=== PATIENT | male | born 1985 | race Caucasian/White ===

== ENCOUNTER 2019-07-26 06:22 | Inpatient (IN) | payer MEDICAID ==
[~2019-07-26] VITALS: Ht 172.7 cm; Wt 68.9 kg
[2019-07-26] MEDS ORDERED: ACETAMINOPHEN 325MG TABLET PO STA (06:47)
[2019-07-26 07:28] LABS: CHLORIDE 103 mEq/L (98-107)
[2019-07-26 07:30] LABS: PROTHROMBIN TIME 11.1 sec (9.6-11.0)
[2019-07-26 07:34] LABS: CLARITY URINE CLEAR (CLEAR); COLOR URINE YELLOW (YELLOW); KETONES URINE NEGATIVE (NEGATIVE); LEUKOCYTE ESTERASE URINE NEGATIVE (NEGATIVE); NITRITE URINE NEGATIVE (NEGATIVE); OCCULT BLOOD URINE TRACE (NEGATIVE); PROTEIN URINE 1+ (NEGATIVE); SPECIFIC GRAVITY URINE 1.025 (1.005-1.030)
[2019-07-26 08:43] LABS: HEMOGLOBIN. 13.3 g/dL (14.0-18.0); MEAN PLATELET VOLUME 8.5 fl (7.4-10.4); PLATELET 338 x1000/uL (130-400); RED BLOOD CELL COUNT 4.43 mill/uL (4.7-6.1); RED CELL DISTRIBUTION WIDTH 13.6 % (11.6-14.6)
[2019-07-26] MEDS ORDERED: VANCOMYCIN 1 G PREMIX 200 ML IV ONE (09:00)
[2019-07-26] MEDS ORDERED: PIPERACILLIN/TAZ 3.375G PREMIX 50 ML IV ONE (09:00)
[2019-07-26 09:21] LABS: PLATELET ESTIMATE NORMAL
[2019-07-26 09:40] LABS: BG BASE EXCESS 0.3 mmol/L (-2.0-2.0); BG CARBOXYHEMOGLOBIN 1.4 % (0.5-1.5); BG DEOXYHEMOGLOBIN 3.4 % (0.0-5.0); BG HCO3 ACT 23.5 mmol/L (22.0-26.0); BG METHEMOGLOBIN 0.3 % (0.0-1.5); BG OXYGEN SATURATION 96.5 % (92.0-98.5); BG OXYHEMOGLOBIN 94.9 % (94.0-97.0); BG PCO2 33.7 mmHg (35.0-45.0); BG PH 7.461 (7.350-7.450); BG PO2 78.4 mmHg (75.0-100.0); BG SAMPLE SITE RIGHT RADIAL; BG TOTAL HEMOGLOBIN 14.1 g/dL (12.0-18.0); BG VENT MODE ROOM AIR
[2019-07-26 12:30] VITALS: BP 106/44
[2019-07-26] MEDS: ASCORBIC ACID 500 MG TABLET PO SCH (14:07)
[2019-07-26] MEDS: ZINC SULFATE 220 MG ( 50 ) CAPSULE PO SCH (14:08)
[2019-07-26 16:00] VITALS: BP 126/70
[2019-07-26] MEDS: HYDROXYCHLOROQUINE SULFATE 200MG TABLET PO SCH ×2 (16:02→21:00)
[2019-07-26] MEDS: ACETAMINOPHEN 325MG TABLET PO PRN (16:02)
[2019-07-26] MEDS: ENOXAPARIN 40MG/0.4ML SYR SUBCUT SCH (18:55)
[2019-07-26] MEDS: AZITHROMYCIN 500 MG TABLET PO SCH (18:56)
[2019-07-26 20:00] VITALS: BP 134/70
[2019-07-26] MEDS: CEFTRIAXONE 1 G PREMIX 50 ML IV SCH (20:18)
[2019-07-27] VITALS: BP 97/59
[2019-07-27 04:00] VITALS: BP 110/65
[2019-07-27 05:22] LABS: HEMATOCRIT. 44.1 % (42.0-52.0); HEMOGLOBIN. 14.9 g/dL (14.0-18.0); MEAN CORPUSCULAR HEMOGLOBIN 30.2 pg (28.0-32.0); MEAN CORPUSCULAR VOLUME 89.3 fL (80.0-94.0); MEAN PLATELET VOLUME 8.7 fl (7.4-10.4); PLATELET 368 x1000/uL (130-400); RED BLOOD CELL COUNT 4.94 mill/uL (4.7-6.1); RED CELL DISTRIBUTION WIDTH 13.6 % (11.6-14.6)
[2019-07-27] MEDS: ACETAMINOPHEN 325MG TABLET PO PRN ×3 (05:31→20:54)
[2019-07-27 06:49] LABS: CHLORIDE 100 mEq/L (98-107)
[2019-07-27 08:00] VITALS: BP 88/55
[2019-07-27] MEDS: AZITHROMYCIN 500 MG TABLET PO SCH (10:20)
[2019-07-27] MEDS: HYDROXYCHLOROQUINE SULFATE 200MG TABLET PO SCH ×2 (10:20→20:58)
[2019-07-27] MEDS: ASCORBIC ACID 500 MG TABLET PO SCH (10:20)
[2019-07-27] MEDS: ZINC SULFATE 220 MG ( 50 ) CAPSULE PO SCH (11:42)
[2019-07-27 12:00] VITALS: BP 102/58
[2019-07-27 13:33] LABS: BG BASE EXCESS 2.3 mmol/L (-2.0-2.0); BG CARBOXYHEMOGLOBIN 0.4 % (0.5-1.5); BG DEOXYHEMOGLOBIN 5.1 % (0.0-5.0); BG FRACTION INSPIRED OXYGEN 34; BG HCO3 ACT 26.2 mmol/L (22.0-26.0); BG METHEMOGLOBIN 0.4 % (0.0-1.5); BG OXYGEN SATURATION 94.9 % (92.0-98.5); BG OXYHEMOGLOBIN 94.1 % (94.0-97.0); BG PCO2 38.2 mmHg (35.0-45.0); BG PH 7.454 (7.350-7.450); BG PO2 73.8 mmHg (75.0-100.0); BG SAMPLE SITE RIGHT RADIAL; BG TOTAL HEMOGLOBIN 14.2 g/dL (12.0-18.0); BG VENT MODE NASAL CANNULA
[2019-07-27] MEDS: ONDANSETRON HCL 4MG/2ML INJ IV PRN ×2 (13:42→18:56)
[2019-07-27 16:00] VITALS: BP 110/63
[2019-07-27] MEDS: ENOXAPARIN 40MG/0.4ML SYR SUBCUT SCH (17:09)
[2019-07-27 17:27] LABS: PLATELET ESTIMATE NORMAL
[2019-07-27] MEDS: MORPHINE SULFATE 2 MG/ML CPJ (NOT FOR IM USE) IV PRN (18:56)
[2019-07-27 20:00] VITALS: BP 97/62
[2019-07-27] MEDS: CEFTRIAXONE 1 G PREMIX 50 ML IV SCH (20:54)
[2019-07-28] VITALS: BP 94/69
[2019-07-28] MEDS: ACETAMINOPHEN 325MG TABLET PO PRN ×3 (05:13→18:37)
[2019-07-28] MEDS: ONDANSETRON HCL 4MG/2ML INJ IV PRN (05:27)
[2019-07-28 08:00] VITALS: BP 98/66
[2019-07-28] MEDS: ASCORBIC ACID 500 MG TABLET PO SCH (08:49)
[2019-07-28] MEDS: ZINC SULFATE 220 MG ( 50 ) CAPSULE PO SCH (08:49)
[2019-07-28] MEDS: AZITHROMYCIN 500 MG TABLET PO SCH (08:50)
[2019-07-28] MEDS: HYDROXYCHLOROQUINE SULFATE 200MG TABLET PO SCH ×2 (08:50→20:51)
[2019-07-28] MEDS: KETOROLAC 30MG/ML VIAL IV PRN ×2 (11:15→18:37)
[2019-07-28 12:00] VITALS: BP 94/49
[2019-07-28] MEDS ORDERED: LACTULOSE 20G/30ML UDC PO NR (12:30)
[2019-07-28] MEDS: ENOXAPARIN 40MG/0.4ML SYR SUBCUT SCH (15:55)
[2019-07-28 16:00] VITALS: BP 118/71
[2019-07-28 20:00] VITALS: BP 108/66
[2019-07-28] MEDS: CEFTRIAXONE 1 G PREMIX 50 ML IV SCH (20:50)
[2019-07-28] MEDS: BENZONATATE 100MG CAPSULE PO PRN (20:51)
[2019-07-28 21:38] LABS: HEMATOCRIT. 43.6 % (42.0-52.0); HEMOGLOBIN. 14.7 g/dL (14.0-18.0); MEAN CORPUSCULAR HEMOGLOBIN 30.1 pg (28.0-32.0); MEAN CORPUSCULAR VOLUME 89.3 fL (80.0-94.0); MEAN PLATELET VOLUME 7.9 fl (7.4-10.4); PLATELET 369 x1000/uL (130-400); RED BLOOD CELL COUNT 4.88 mill/uL (4.7-6.1); RED CELL DISTRIBUTION WIDTH 13.5 % (11.6-14.6)
[2019-07-28 22:51] LABS: PLATELET ESTIMATE NORMAL
[2019-07-29] VITALS: BP 95/58
[2019-07-29 00:05] LABS: CHLORIDE 100 mEq/L (98-107)
[2019-07-29] MEDS: ACETAMINOPHEN 325MG TABLET PO PRN ×3 (00:32→18:23)
[2019-07-29 04:00] VITALS: BP 106/71
[2019-07-29 08:00] VITALS: BP 124/77
[2019-07-29] MEDS: AZITHROMYCIN 500 MG TABLET PO SCH (08:32)
[2019-07-29] MEDS: ZINC SULFATE 220 MG ( 50 ) CAPSULE PO SCH (08:32)
[2019-07-29] MEDS: HYDROXYCHLOROQUINE SULFATE 200MG TABLET PO SCH ×2 (08:33→20:45)
[2019-07-29] MEDS: ASCORBIC ACID 500 MG TABLET PO SCH ×5 (08:33→23:24)
[2019-07-29] MEDS: MORPHINE SULFATE 2 MG/ML CPJ (NOT FOR IM USE) IV PRN ×2 (08:34→14:09)
[2019-07-29] MEDS ORDERED: FUROSEMIDE 40MG/4ML VIAL IVP NR (10:15)
[2019-07-29 10:51] LABS: BG BASE EXCESS 1.2 mmol/L (-2.0-2.0); BG CARBOXYHEMOGLOBIN 0.3 % (0.5-1.5); BG DEOXYHEMOGLOBIN 6.1 % (0.0-5.0); BG FRACTION INSPIRED OXYGEN 100; BG HCO3 ACT 24.8 mmol/L (22.0-26.0); BG METHEMOGLOBIN 0.3 % (0.0-1.5); BG OXYGEN SATURATION 93.9 % (92.0-98.5); BG OXYHEMOGLOBIN 93.3 % (94.0-97.0); BG PCO2 35.9 mmHg (35.0-45.0); BG PH 7.457 (7.350-7.450); BG PO2 65.4 mmHg (75.0-100.0); BG SAMPLE SITE RIGHT RADIAL; BG TOTAL HEMOGLOBIN 13.6 g/dL (12.0-18.0); BG VENT MODE MASK - NRB
[2019-07-29 11:46] LABS: HEMATOCRIT. 40.8 % (42.0-52.0); HEMOGLOBIN. 13.7 g/dL (14.0-18.0); MEAN CORPUSCULAR HEMOGLOBIN 29.9 pg (28.0-32.0); MEAN CORPUSCULAR VOLUME 88.9 fL (80.0-94.0); MEAN PLATELET VOLUME 7.9 fl (7.4-10.4); PLATELET 448 x1000/uL (130-400); RED BLOOD CELL COUNT 4.59 mill/uL (4.7-6.1); RED CELL DISTRIBUTION WIDTH 13.6 % (11.6-14.6)
[2019-07-29 12:00] VITALS: BP 107/65
[2019-07-29 12:04] LABS: CHLORIDE 98 mEq/L (98-107)
[2019-07-29 12:12] LABS: CREATINE KINASE MB FRACTION < 1.0 ng/mL (0.5-3.6)
[2019-07-29 13:08] LABS: PLATELET ESTIMATE INCREASED
[2019-07-29] MEDS: ENOXAPARIN 40MG/0.4ML SYR SUBCUT SCH (14:07)
[2019-07-29] MEDS: THIAMINE HCL 200 MG in SODIUM CHLORIDE 0.9% 98 ML IV SCH ×2 (14:07→21:31)
[2019-07-29 14:57] LABS: C REACTIVE PROTEIN QUANT > 190.0 mg/L (0.0-3.0)
[2019-07-29 16:00] VITALS: BP 103/66
[2019-07-29] MEDS ORDERED: ALBUTEROL 6.7GM HFA INHALER ORI PRN (17:00)
[2019-07-29 20:00] VITALS: BP 105/68
[2019-07-29] MEDS: GUAIFENESIN 600MG ER TABLET PO SCH (20:45)
[2019-07-29] MEDS: CEFTRIAXONE 1 G PREMIX 50 ML IV SCH (20:45)
[2019-07-30] VITALS (7 sets, daily range): BP systolic 103–113; BP diastolic 63–69
[2019-07-30] MEDS: KETOROLAC 30MG/ML VIAL IV PRN (04:42)
[2019-07-30] MEDS: ASCORBIC ACID 500 MG TABLET PO SCH ×2 (05:29→13:55)
[2019-07-30] MEDS: THIAMINE HCL 200 MG in SODIUM CHLORIDE 0.9% 98 ML IV SCH (09:49)
[2019-07-30] MEDS: HYDROXYCHLOROQUINE SULFATE 200MG TABLET PO SCH ×2 (09:50→21:21)
[2019-07-30] MEDS: BENZONATATE 100MG CAPSULE PO PRN (09:50)
[2019-07-30] MEDS: ACETAMINOPHEN 325MG TABLET PO PRN (09:50)
[2019-07-30] MEDS: GUAIFENESIN 600MG ER TABLET PO SCH ×2 (09:50→21:21)
[2019-07-30] MEDS: AZITHROMYCIN 500 MG TABLET PO SCH (09:50)
[2019-07-30] MEDS: ZINC SULFATE 220 MG ( 50 ) CAPSULE PO SCH (09:50)
[2019-07-30] MEDS: MORPHINE SULFATE 2 MG/ML CPJ (NOT FOR IM USE) IV PRN ×2 (13:54→18:45)
[2019-07-30] MEDS ORDERED: THIAMINE HCL 100MG TABLET PO SCH (17:00)
[2019-07-30 17:11] LABS: BG BASE EXCESS 4.7 mmol/L (-2.0-2.0); BG CARBOXYHEMOGLOBIN 0.2 % (0.5-1.5); BG DEOXYHEMOGLOBIN 8.6 % (0.0-5.0); BG FRACTION INSPIRED OXYGEN 100; BG METHEMOGLOBIN 0.3 % (0.0-1.5); BG OXYGEN SATURATION 91.4 % (92.0-98.5); BG OXYHEMOGLOBIN 90.9 % (94.0-97.0); BG PH 7.423 (7.350-7.450); BG PO2 61.1 mmHg (75.0-100.0); BG SAMPLE SITE RIGHT RADIAL; BG TOTAL HEMOGLOBIN 13.5 g/dL (12.0-18.0); BG VENT MODE MASK - NRB
[2019-07-30] MEDS: ENOXAPARIN 40MG/0.4ML SYR SUBCUT SCH (18:24)
[2019-07-30] MEDS: THIAMINE HCL 100MG TABLET PO SCH (18:25)
[2019-07-30] MEDS: ALBUTEROL 6.7GM HFA INHALER ORI SCH (18:26)
[2019-07-30] MEDS: CEFTRIAXONE 1 G PREMIX 50 ML IV SCH (21:21)
[2019-07-30] MEDS: DOCUSATE SODIUM 250MG CAPSULE PO SCH (23:55)
[2019-07-31] VITALS: BP 115/65
[2019-07-31] MEDS: MORPHINE SULFATE 2 MG/ML CPJ (NOT FOR IM USE) IV PRN ×4 (00:01→15:53)
[2019-07-31 04:00] VITALS: BP 112/69
[2019-07-31] MEDS: ALBUTEROL 6.7GM HFA INHALER ORI SCH ×3 (06:12→18:02)
[2019-07-31] MEDS: ASCORBIC ACID 500 MG TABLET PO SCH ×4 (06:12→23:30)
[2019-07-31 08:00] VITALS: BP 108/62
[2019-07-31 08:53] LABS: BG BASE EXCESS 1.4 mmol/L (-2.0-2.0); BG CARBOXYHEMOGLOBIN 0.3 % (0.5-1.5); BG DEOXYHEMOGLOBIN 5.4 % (0.0-5.0); BG HCO3 ACT 26.1 mmol/L (22.0-26.0); BG METHEMOGLOBIN 0.2 % (0.0-1.5); BG OXYGEN SATURATION 94.6 % (92.0-98.5); BG OXYHEMOGLOBIN 94.1 % (94.0-97.0); BG PCO2 41.4 mmHg (35.0-45.0); BG PH 7.417 (7.350-7.450); BG PO2 74.9 mmHg (75.0-100.0); BG SAMPLE SITE RIGHT RADIAL; BG TOTAL HEMOGLOBIN 13.4 g/dL (12.0-18.0); BG VENT MODE MASK - NRB
[2019-07-31] MEDS: ZINC SULFATE 220 MG ( 50 ) CAPSULE PO SCH (09:09)
[2019-07-31] MEDS: DOCUSATE SODIUM 250MG CAPSULE PO SCH ×2 (09:09→18:02)
[2019-07-31] MEDS: GUAIFENESIN 600MG ER TABLET PO SCH ×2 (09:09→20:47)
[2019-07-31] MEDS: HYDROXYCHLOROQUINE SULFATE 200MG TABLET PO SCH (09:09)
[2019-07-31] MEDS: AZITHROMYCIN 500 MG TABLET PO SCH (09:09)
[2019-07-31] MEDS: ENOXAPARIN 40MG/0.4ML SYR SUBCUT SCH (10:32)
[2019-07-31] MEDS: FUROSEMIDE 40MG/4ML VIAL IVP NR ×2 (11:00→14:36)
[2019-07-31 12:00] VITALS: BP 110/66
[2019-07-31] MEDS: THIAMINE HCL 100MG TABLET PO SCH ×2 (13:52→18:02)
[2019-07-31 15:37] LABS: D-DIMER 1.06 mg/L FEU (<0.50); HEMATOCRIT. 38.7 % (42.0-52.0); HEMOGLOBIN. 13.3 g/dL (14.0-18.0); INR 1.1; MEAN CORPUSCULAR HEMOGLOBIN 30.5 pg (28.0-32.0); MEAN CORPUSCULAR VOLUME 88.7 fL (80.0-94.0); MEAN PLATELET VOLUME 7.8 fl (7.4-10.4); PLATELET 491 x1000/uL (130-400); PROTHROMBIN TIME 11.4 sec (9.6-11.0); RED BLOOD CELL COUNT 4.37 mill/uL (4.7-6.1); RED CELL DISTRIBUTION WIDTH 13.6 % (11.6-14.6)
[2019-07-31 15:39] LABS: CHLORIDE 100 mEq/L (98-107)
[2019-07-31 15:46] LABS: PHOSPHORUS 3.7 mg/dL (2.5-4.9)
[2019-07-31 15:48] LABS: CREATINE KINASE MB FRACTION < 1.0 ng/mL (0.5-3.6)
[2019-07-31 16:00] VITALS: BP 107/77
[2019-07-31 17:15] LABS: PLATELET ESTIMATE INCREASED
[2019-07-31] MEDS: ACETAMINOPHEN 325MG TABLET PO PRN (18:18)
[2019-07-31] MEDS: CEFTRIAXONE 1 G PREMIX 50 ML IV SCH (20:47)
[2019-08-01] VITALS: BP 115/76
[2019-08-01] MEDS: ALBUTEROL 6.7GM HFA INHALER ORI SCH ×5 (00:43→23:29)
[2019-08-01] MEDS: MORPHINE SULFATE 2 MG/ML CPJ (NOT FOR IM USE) IV PRN ×2 (02:25→08:30)
[2019-08-01 04:00] VITALS: BP 106/75
[2019-08-01] MEDS: ASCORBIC ACID 500 MG TABLET PO SCH ×4 (06:23→23:24)
[2019-08-01 08:00] VITALS: BP 124/76
[2019-08-01] MEDS: THIAMINE HCL 100MG TABLET PO SCH ×2 (08:29→18:55)
[2019-08-01] MEDS: GUAIFENESIN 600MG ER TABLET PO SCH ×2 (08:29→21:11)
[2019-08-01] MEDS: ZINC SULFATE 220 MG ( 50 ) CAPSULE PO SCH (08:29)
[2019-08-01] MEDS: AZITHROMYCIN 500 MG TABLET PO SCH (08:29)
[2019-08-01] MEDS: DOCUSATE SODIUM 250MG CAPSULE PO SCH ×2 (08:29→17:00)
[2019-08-01 12:00] VITALS: BP 112/76
[2019-08-01] MEDS: ENOXAPARIN 40MG/0.4ML SYR SUBCUT SCH (12:38)
[2019-08-01] MEDS ORDERED: FUROSEMIDE 40MG/4ML VIAL IVP NR (13:15)
[2019-08-01] MEDS: PIPERACILLIN/TAZOBACTAM 3.375 G in DEXT 5% WATER 100 ML IV SCH ×2 (15:13→21:11)
[2019-08-01 16:00] VITALS: BP 107/69
[2019-08-01 20:00] VITALS: BP 107/71
[2019-08-02] VITALS: BP 109/74
[2019-08-02] MEDS: ACETAMINOPHEN 325MG TABLET PO PRN (02:25)
[2019-08-02] MEDS: PIPERACILLIN/TAZOBACTAM 3.375 G in DEXT 5% WATER 100 ML IV SCH ×4 (03:14→20:40)
[2019-08-02 04:00] VITALS: BP 102/67
[2019-08-02] MEDS: ASCORBIC ACID 500 MG TABLET PO SCH ×4 (05:32→23:49)
[2019-08-02] MEDS: ALBUTEROL 6.7GM HFA INHALER ORI SCH ×4 (05:32→23:49)
[2019-08-02 08:00] VITALS: BP 118/74
[2019-08-02] MEDS: DOCUSATE SODIUM 250MG CAPSULE PO SCH ×2 (09:00→16:57)
[2019-08-02] MEDS: BENZONATATE 100MG CAPSULE PO PRN (10:32)
[2019-08-02] MEDS: AZITHROMYCIN 500 MG TABLET PO SCH (10:33)
[2019-08-02] MEDS: GUAIFENESIN 600MG ER TABLET PO SCH ×2 (10:33→20:40)
[2019-08-02] MEDS: THIAMINE HCL 100MG TABLET PO SCH ×2 (10:33→16:57)
[2019-08-02] MEDS: ENOXAPARIN 40MG/0.4ML SYR SUBCUT SCH (10:33)
[2019-08-02] MEDS: ZINC SULFATE 220 MG ( 50 ) CAPSULE PO SCH (10:33)
[2019-08-02] MEDS: ONDANSETRON HCL 4MG/2ML INJ IV PRN (12:58)
[2019-08-02] MEDS: HYDROCODONE/ACETAMINOPHEN 10/325MG TABLET PO PRN ×2 (13:01→17:01)
[2019-08-02] MEDS: METHYLPREDNISOLONE SOD SUCC 40 MG/ML VIAL IV SCH ×2 (16:57→20:40)
[2019-08-02 20:00] VITALS: BP 108/69
[2019-08-02 21:07] LABS: HEMATOCRIT. 39.8 % (42.0-52.0); HEMOGLOBIN. 13.5 g/dL (14.0-18.0); MEAN CORPUSCULAR HEMOGLOBIN 30.2 pg (28.0-32.0); MEAN CORPUSCULAR VOLUME 88.7 fL (80.0-94.0); PLATELET 535 x1000/uL (130-400); RED BLOOD CELL COUNT 4.48 mill/uL (4.7-6.1); RED CELL DISTRIBUTION WIDTH 13.4 % (11.6-14.6)
[2019-08-02 22:59] LABS: PLATELET ESTIMATE INCREASED
[2019-08-03] VITALS: BP 106/67
[2019-08-03] MEDS: PIPERACILLIN/TAZOBACTAM 3.375 G in DEXT 5% WATER 100 ML IV SCH ×4 (02:24→20:28)
[2019-08-03 04:00] VITALS: BP 103/59
[2019-08-03] MEDS: HYDROCODONE/ACETAMINOPHEN 10/325MG TABLET PO PRN ×2 (06:16→18:31)
[2019-08-03] MEDS: ASCORBIC ACID 500 MG TABLET PO SCH ×2 (06:16→12:26)
[2019-08-03] MEDS: ALBUTEROL 6.7GM HFA INHALER ORI SCH ×3 (06:17→17:18)
[2019-08-03 08:00] VITALS: BP 133/71
[2019-08-03] MEDS: DOCUSATE SODIUM 250MG CAPSULE PO SCH ×2 (09:46→16:07)
[2019-08-03] MEDS: ZINC SULFATE 220 MG ( 50 ) CAPSULE PO SCH (09:46)
[2019-08-03] MEDS: METHYLPREDNISOLONE SOD SUCC 40 MG/ML VIAL IV SCH ×2 (09:47→20:29)
[2019-08-03] MEDS: ACETAMINOPHEN 325MG TABLET PO PRN (09:47)
[2019-08-03] MEDS: GUAIFENESIN 600MG ER TABLET PO SCH ×2 (09:47→20:28)
[2019-08-03] MEDS: CALCIUM CARBONATE 500MG TABLET CHEW PO SCH ×3 (09:48→16:06)
[2019-08-03] MEDS: THIAMINE HCL 100MG TABLET PO SCH ×2 (09:48→16:07)
[2019-08-03 09:59] LABS: CHLORIDE 93 mEq/L (98-107)
[2019-08-03 10:03] LABS: HEMATOCRIT. 38.7 % (42.0-52.0); HEMOGLOBIN. 13.1 g/dL (14.0-18.0); MEAN CORPUSCULAR HEMOGLOBIN 30.1 pg (28.0-32.0); MEAN CORPUSCULAR VOLUME 88.6 fL (80.0-94.0); MEAN PLATELET VOLUME 7.8 fl (7.4-10.4); PLATELET 542 x1000/uL (130-400); RED BLOOD CELL COUNT 4.37 mill/uL (4.7-6.1); RED CELL DISTRIBUTION WIDTH 13.5 % (11.6-14.6)
[2019-08-03 10:07] LABS: PHOSPHORUS 3.1 mg/dL (2.5-4.9)
[2019-08-03 10:08] LABS: CREATINE KINASE MB FRACTION < 1.0 ng/mL (0.5-3.6)
[2019-08-03 12:00] VITALS: BP 111/75
[2019-08-03] MEDS: ENOXAPARIN 40MG/0.4ML SYR SUBCUT SCH (12:25)
[2019-08-03 12:27] LABS: PLATELET ESTIMATE INCREASED
[2019-08-03 20:00] VITALS: BP 105/63
[2019-08-03] MEDS: ENOXAPARIN 30MG/0.3ML SYR SUBCUT SCH (20:29)
[2019-08-04] VITALS (45 sets, daily range): BP systolic 58–177; BP diastolic 36–132
[2019-08-04] MEDS: ACETAMINOPHEN 325MG TABLET PO PRN (00:13)
[2019-08-04] MEDS: ALBUTEROL 6.7GM HFA INHALER ORI SCH ×4 (00:17→18:00)
[2019-08-04] MEDS: PIPERACILLIN/TAZOBACTAM 3.375 G in DEXT 5% WATER 100 ML IV SCH ×3 (02:57→21:59)
[2019-08-04] MEDS: CALCIUM CARBONATE 500MG TABLET CHEW PO SCH ×3 (06:11→17:00)
[2019-08-04] MEDS: DOCUSATE SODIUM 250MG CAPSULE PO SCH ×2 (08:33→17:00)
[2019-08-04] MEDS: ASCORBIC ACID 500 MG TABLET PO SCH ×2 (08:33→17:00)
[2019-08-04] MEDS: ENOXAPARIN 30MG/0.3ML SYR SUBCUT SCH ×2 (08:33→21:59)
[2019-08-04] MEDS: GUAIFENESIN 600MG ER TABLET PO SCH ×2 (08:33→21:00)
[2019-08-04] MEDS: ZINC SULFATE 220 MG ( 50 ) CAPSULE PO SCH (08:33)
[2019-08-04] MEDS: THIAMINE HCL 100MG TABLET PO SCH ×2 (08:33→17:00)
[2019-08-04] MEDS: METHYLPREDNISOLONE SOD SUCC 40 MG/ML VIAL IV SCH ×2 (08:34→21:59)
[2019-08-04] MEDS: HYDROCODONE/ACETAMINOPHEN 10/325MG TABLET PO PRN (09:51)
[2019-08-04 10:12] LABS: HEMATOCRIT. 38.2 % (42.0-52.0); HEMOGLOBIN. 12.9 g/dL (14.0-18.0); MEAN CORPUSCULAR HEMOGLOBIN 29.9 pg (28.0-32.0); MEAN CORPUSCULAR VOLUME 88.5 fL (80.0-94.0); MEAN PLATELET VOLUME 7.5 fl (7.4-10.4); PLATELET 573 x1000/uL (130-400); RED BLOOD CELL COUNT 4.32 mill/uL (4.7-6.1); RED CELL DISTRIBUTION WIDTH 13.4 % (11.6-14.6)
[2019-08-04 10:18] LABS: CHLORIDE 95 mEq/L (98-107)
[2019-08-04 10:25] LABS: PHOSPHORUS 3.1 mg/dL (2.5-4.9)
[2019-08-04 12:35] LABS: BG BASE EXCESS 5.8 mmol/L (-2.0-2.0); BG CARBOXYHEMOGLOBIN 0.3 % (0.5-1.5); BG DEOXYHEMOGLOBIN 9.5 % (0.0-5.0); BG HCO3 ACT 30.7 mmol/L (22.0-26.0); BG METHEMOGLOBIN 0.1 % (0.0-1.5); BG OXYGEN SATURATION 90.5 % (92.0-98.5); BG OXYHEMOGLOBIN 90.1 % (94.0-97.0); BG PCO2 45.8 mmHg (35.0-45.0); BG PH 7.444 (7.350-7.450); BG PO2 58.5 mmHg (75.0-100.0); BG SAMPLE SITE RIGHT RADIAL; BG TOTAL HEMOGLOBIN 12.9 g/dL (12.0-18.0); BG VENT MODE MASK - NRB
[2019-08-04 13:30] LABS: PLATELET ESTIMATE INCREASED
[2019-08-04] MEDS ORDERED: LORAZEPAM 2MG/ML CPJ ONE (16:06)
[2019-08-04] MEDS: PROPOFOL 10MG/ML 100ML 100 ML IV PRN ×2 (16:15→21:58)
[2019-08-04 17:11] LABS: BG BASE EXCESS 6.1 mmol/L (-2.0-2.0); BG CARBOXYHEMOGLOBIN 0.3 % (0.5-1.5); BG HCO3 ACT 32.2 mmol/L (22.0-26.0); BG METHEMOGLOBIN 0.2 % (0.0-1.5); BG OXYGEN SATURATION 85.9 % (92.0-98.5); BG OXYHEMOGLOBIN 85.5 % (94.0-97.0); BG PCO2 52.7 mmHg (35.0-45.0); BG PH 7.404 (7.350-7.450); BG PO2 53.9 mmHg (75.0-100.0); BG SAMPLE SITE RIGHT RADIAL; BG TIDAL VOLUME(mL) 450 mL; BG TOTAL HEMOGLOBIN 13.1 g/dL (12.0-18.0); BG VENT MODE VENT - A/C; BG VENT RATE 20 set
[2019-08-04] MEDS: MIDAZOLAM HCL 50 MG in DEXTROSE 5% WATER 40 ML IV PRN ×2 (17:24→20:52)
[2019-08-04] MEDS: FENTANYL CITRATE/PF 500 MCG in SODIUM CHLORIDE 0.9% 40 ML IV PRN ×2 (17:24→20:51)
[2019-08-04] MEDS ORDERED: NOREPINEPHRINE 32 MG in DEXT 5% WATER 468 ML IV PRN (22:00)
[2019-08-04] MEDS: FENTANYL CITRATE/PF 1,000 MCG in SODIUM CHLORIDE 0.9% 80 ML IV PRN (23:15)
[2019-08-05] VITALS (96 sets, daily range): BP systolic 76–160; BP diastolic 28–106
[2019-08-05] MEDS: MIDAZOLAM HCL 100 MG in DEXT 5% WATER 80 ML IV PRN ×3 (00:22→17:31)
[2019-08-05] MEDS: PROPOFOL 10MG/ML 100ML 100 ML IV PRN ×6 (01:47→22:45)
[2019-08-05] MEDS: PHENYLEPHRINE 40 MG in DEXT 5% WATER 246 ML IV PRN ×2 (02:19→09:32)
[2019-08-05] MEDS: PIPERACILLIN/TAZOBACTAM 3.375 G in DEXT 5% WATER 100 ML IV SCH ×4 (03:47→20:29)
[2019-08-05 05:36] LABS: HEMOGLOBIN. 12.4 g/dL (14.0-18.0); MEAN CORPUSCULAR VOLUME 89.3 fL (80.0-94.0); MEAN PLATELET VOLUME 7.9 fl (7.4-10.4); PLATELET 680 x1000/uL (130-400); RED BLOOD CELL COUNT 4.14 mill/uL (4.7-6.1); RED CELL DISTRIBUTION WIDTH 13.4 % (11.6-14.6)
[2019-08-05 05:51] LABS: CHLORIDE 95 mEq/L (98-107)
[2019-08-05 06:00] LABS: CREATINE KINASE MB FRACTION < 1.0 ng/mL (0.5-3.6)
[2019-08-05 08:17] LABS: BG BASE EXCESS 6.1 mmol/L (-2.0-2.0); BG CARBOXYHEMOGLOBIN 0.3 % (0.5-1.5); BG DEOXYHEMOGLOBIN 11.9 % (0.0-5.0); BG FRACTION INSPIRED OXYGEN 100; BG HCO3 ACT 32.5 mmol/L (22.0-26.0); BG METHEMOGLOBIN 0.2 % (0.0-1.5); BG OXYHEMOGLOBIN 87.6 % (94.0-97.0); BG PCO2 54.7 mmHg (35.0-45.0); BG PH 7.392 (7.350-7.450); BG PO2 58.4 mmHg (75.0-100.0); BG SAMPLE SITE RIGHT RADIAL; BG TIDAL VOLUME(mL) 450 mL; BG VENT MODE VENT - A/C; BG VENT RATE 20 set
[2019-08-05] MEDS: DOCUSATE SODIUM 250MG CAPSULE PO SCH ×2 (09:29→17:29)
[2019-08-05] MEDS: METHYLPREDNISOLONE SOD SUCC 40 MG/ML VIAL IV SCH ×2 (09:29→20:29)
[2019-08-05] MEDS: ENOXAPARIN 30MG/0.3ML SYR SUBCUT SCH ×2 (09:29→20:30)
[2019-08-05] MEDS: ZINC SULFATE 220 MG ( 50 ) CAPSULE PO SCH (09:29)
[2019-08-05] MEDS: ASCORBIC ACID 500 MG TABLET PO SCH ×2 (09:29→17:28)
[2019-08-05] MEDS: CALCIUM CARBONATE 500MG TABLET CHEW PO SCH ×3 (09:30→17:28)
[2019-08-05] MEDS: FENTANYL CITRATE/PF 1,000 MCG in SODIUM CHLORIDE 0.9% 80 ML IV PRN ×2 (09:30→17:30)
[2019-08-05 09:42] LABS: PLATELET ESTIMATE INCREASED
[2019-08-05] MEDS: THIAMINE HCL 100MG TABLET PO SCH ×2 (10:39→17:28)
[2019-08-05] MEDS: FUROSEMIDE 40MG/4ML VIAL IVP SCH (18:19)
[2019-08-06] VITALS (95 sets, daily range): BP systolic 86–116; BP diastolic 52–75
[2019-08-06] MEDS: PIPERACILLIN/TAZOBACTAM 3.375 G in DEXT 5% WATER 100 ML IV SCH ×4 (02:17→20:16)
[2019-08-06] MEDS: PROPOFOL 10MG/ML 100ML 100 ML IV PRN ×6 (03:07→22:22)
[2019-08-06 04:52] LABS: HEMATOCRIT. 36.1 % (42.0-52.0); HEMOGLOBIN. 12.1 g/dL (14.0-18.0); MEAN CORPUSCULAR HEMOGLOBIN 29.8 pg (28.0-32.0); MEAN CORPUSCULAR VOLUME 89.1 fL (80.0-94.0); MEAN PLATELET VOLUME 7.8 fl (7.4-10.4); PLATELET 603 x1000/uL (130-400); RED BLOOD CELL COUNT 4.06 mill/uL (4.7-6.1); RED CELL DISTRIBUTION WIDTH 13.4 % (11.6-14.6)
[2019-08-06 05:28] LABS: CHLORIDE 93 mEq/L (98-107)
[2019-08-06 05:36] LABS: PHOSPHORUS 4.2 mg/dL (2.5-4.9)
[2019-08-06] MEDS: FENTANYL CITRATE/PF 1,000 MCG in SODIUM CHLORIDE 0.9% 80 ML IV PRN ×2 (05:52→18:30)
[2019-08-06] MEDS: MIDAZOLAM HCL 100 MG in DEXT 5% WATER 80 ML IV PRN ×2 (05:53→18:30)
[2019-08-06] MEDS: CALCIUM CARBONATE 500MG TABLET CHEW PO SCH ×3 (07:00→16:17)
[2019-08-06 07:56] LABS: BG BASE EXCESS 9.8 mmol/L (-2.0-2.0); BG CARBOXYHEMOGLOBIN 0.3 % (0.5-1.5); BG DEOXYHEMOGLOBIN 11.1 % (0.0-5.0); BG HCO3 ACT 37.2 mmol/L (22.0-26.0); BG METHEMOGLOBIN 0.2 % (0.0-1.5); BG OXYGEN SATURATION 88.8 % (92.0-98.5); BG OXYHEMOGLOBIN 88.4 % (94.0-97.0); BG PCO2 64.1 mmHg (35.0-45.0); BG PH 7.382 (7.350-7.450); BG PO2 60.1 mmHg (75.0-100.0); BG SAMPLE SITE RIGHT RADIAL; BG TIDAL VOLUME(mL) 400 mL; BG TOTAL HEMOGLOBIN 13.1 g/dL (12.0-18.0); BG VENT MODE VENT - A/C; BG VENT RATE 18 set
[2019-08-06] MEDS: PANTOPRAZOLE SODIUM 40 MG/VIAL IV SCH (08:43)
[2019-08-06] MEDS: METHYLPREDNISOLONE SOD SUCC 40 MG/ML VIAL IV SCH ×2 (08:43→20:15)
[2019-08-06] MEDS: FUROSEMIDE 40MG/4ML VIAL IVP SCH (08:43)
[2019-08-06] MEDS: ZINC SULFATE 220 MG ( 50 ) CAPSULE PO SCH (08:44)
[2019-08-06] MEDS: ASCORBIC ACID 500 MG TABLET PO SCH ×2 (08:47→16:17)
[2019-08-06] MEDS: ENOXAPARIN 30MG/0.3ML SYR SUBCUT SCH ×2 (08:48→20:15)
[2019-08-06] MEDS: THIAMINE HCL 100MG TABLET PO SCH ×2 (08:51→16:17)
[2019-08-06] MEDS ORDERED: DILTIAZEM HCL 5MG/ML 5ML VIAL IV NR (10:15)
[2019-08-06 13:06] LABS: PLATELET ESTIMATE INCREASED
[2019-08-06] MEDS: DOCUSATE SODIUM SUGAR FREE 100MG/10ML UDC NG SCH (16:17)
[2019-08-07] VITALS (96 sets, daily range): BP systolic 83–150; BP diastolic 46–91
[2019-08-07] MEDS: PROPOFOL 10MG/ML 100ML 100 ML IV PRN ×6 (01:49→21:03)
[2019-08-07] MEDS: PHENYLEPHRINE 40 MG in DEXT 5% WATER 246 ML IV PRN (02:18)
[2019-08-07] MEDS: MIDAZOLAM HCL 100 MG in DEXT 5% WATER 80 ML IV PRN ×2 (04:53→16:50)
[2019-08-07] MEDS: FENTANYL CITRATE/PF 1,000 MCG in SODIUM CHLORIDE 0.9% 80 ML IV PRN ×3 (04:53→23:35)
[2019-08-07 05:26] LABS: HEMATOCRIT. 33.5 % (42.0-52.0); HEMOGLOBIN. 11.5 g/dL (14.0-18.0); MEAN CORPUSCULAR VOLUME 89.9 fL (80.0-94.0); MEAN PLATELET VOLUME 8.5 fl (7.4-10.4); PLATELET 597 x1000/uL (130-400); RED BLOOD CELL COUNT 3.73 mill/uL (4.7-6.1); RED CELL DISTRIBUTION WIDTH 13.1 % (11.6-14.6)
[2019-08-07] MEDS: CALCIUM CARBONATE 500MG TABLET CHEW PO SCH ×3 (06:18→17:19)
[2019-08-07] MEDS: METHYLPREDNISOLONE SOD SUCC 40 MG/ML VIAL IV SCH ×2 (08:22→20:06)
[2019-08-07] MEDS: PANTOPRAZOLE SODIUM 40 MG/VIAL IV SCH (08:22)
[2019-08-07] MEDS: ASCORBIC ACID 500 MG TABLET PO SCH ×2 (08:23→17:19)
[2019-08-07] MEDS: DOCUSATE SODIUM SUGAR FREE 100MG/10ML UDC NG SCH ×2 (08:23→17:19)
[2019-08-07] MEDS: ENOXAPARIN 40MG/0.4ML SYR SUBCUT SCH (08:23)
[2019-08-07] MEDS: THIAMINE HCL 100MG TABLET PO SCH ×2 (08:23→17:19)
[2019-08-07] MEDS: ZINC SULFATE 220 MG ( 50 ) CAPSULE PO SCH (08:23)
[2019-08-07] MEDS: FUROSEMIDE 40MG/4ML VIAL IVP SCH (08:23)
[2019-08-07 08:26] LABS: BG BASE EXCESS 11.4 mmol/L (-2.0-2.0); BG CARBOXYHEMOGLOBIN 0.2 % (0.5-1.5); BG FRACTION INSPIRED OXYGEN 100; BG HCO3 ACT 39.8 mmol/L (22.0-26.0); BG METHEMOGLOBIN 0.1 % (0.0-1.5); BG OXYHEMOGLOBIN 95.7 % (94.0-97.0); BG PCO2 73.1 mmHg (35.0-45.0); BG PH 7.354 (7.350-7.450); BG PO2 88.8 mmHg (75.0-100.0); BG SAMPLE SITE RIGHT RADIAL; BG TIDAL VOLUME(mL) 400 mL; BG TOTAL HEMOGLOBIN 12.6 g/dL (12.0-18.0); BG VENT MODE VENT - A/C; BG VENT RATE 24 set
[2019-08-07 10:35] LABS: CHLORIDE 94 mEq/L (98-107)
[2019-08-07 10:43] LABS: PHOSPHORUS 4.5 mg/dL (2.5-4.9)
[2019-08-07] MEDS ORDERED: VASOPRESSIN 10 UNIT in SODIUM CHLORIDE 0.9% 99.5 ML IV PRN (12:00)
[2019-08-07 13:05] LABS: PLATELET ESTIMATE INCREASED
[2019-08-07 18:24] LABS: INR 1.1; PARTIAL THROMBOPLASTIN TIME 24.3 sec (23.4-31.0); PROTHROMBIN TIME 11.4 sec (9.6-11.0)
[2019-08-08] VITALS (66 sets, daily range): BP systolic 86–134; BP diastolic 45–93
[2019-08-08] MEDS: MIDAZOLAM HCL 100 MG in DEXT 5% WATER 80 ML IV PRN ×3 (00:34→23:52)
[2019-08-08] MEDS: PROPOFOL 10MG/ML 100ML 100 ML IV PRN ×6 (00:44→23:00)
[2019-08-08 05:48] LABS: CHLORIDE 93 mEq/L (98-107)
[2019-08-08 05:57] LABS: PHOSPHORUS 4.8 mg/dL (2.5-4.9)
[2019-08-08] MEDS: CALCIUM CARBONATE 500MG TABLET CHEW PO SCH ×3 (06:41→16:03)
[2019-08-08] MEDS: FENTANYL CITRATE/PF 1,000 MCG in SODIUM CHLORIDE 0.9% 80 ML IV PRN ×3 (07:34→21:48)
[2019-08-08 08:45] LABS: BG BASE EXCESS 10.6 mmol/L (-2.0-2.0); BG CARBOXYHEMOGLOBIN 0.3 % (0.5-1.5); BG DEOXYHEMOGLOBIN 6.5 % (0.0-5.0); BG FRACTION INSPIRED OXYGEN 100; BG HCO3 ACT 37.8 mmol/L (22.0-26.0); BG OXYGEN SATURATION 93.5 % (92.0-98.5); BG OXYHEMOGLOBIN 93.2 % (94.0-97.0); BG PCO2 64.3 mmHg (35.0-45.0); BG PH 7.387 (7.350-7.450); BG PO2 74.9 mmHg (75.0-100.0); BG SAMPLE SITE RIGHT RADIAL; BG TIDAL VOLUME(mL) 350 mL; BG TOTAL HEMOGLOBIN 11.7 g/dL (12.0-18.0); BG VENT MODE VENT - A/C; BG VENT RATE 30 set
[2019-08-08] MEDS: PANTOPRAZOLE SODIUM 40 MG/VIAL IV SCH (09:25)
[2019-08-08] MEDS: ENOXAPARIN 40MG/0.4ML SYR SUBCUT SCH (09:25)
[2019-08-08] MEDS: ASCORBIC ACID 500 MG TABLET PO SCH ×2 (09:25→16:04)
[2019-08-08] MEDS: ZINC SULFATE 220 MG ( 50 ) CAPSULE PO SCH (09:25)
[2019-08-08] MEDS: THIAMINE HCL 100MG TABLET PO SCH ×2 (09:25→16:04)
[2019-08-08] MEDS: METHYLPREDNISOLONE SOD SUCC 40 MG/ML VIAL IV SCH ×2 (09:25→20:00)
[2019-08-08] MEDS: PHENYLEPHRINE 40 MG in DEXT 5% WATER 246 ML IV PRN ×2 (09:26→23:00)
[2019-08-08] MEDS: DOCUSATE SODIUM SUGAR FREE 100MG/10ML UDC NG SCH ×2 (09:26→16:04)
[2019-08-08] MEDS: ACETAMINOPHEN 325MG TABLET PO PRN (16:04)
[2019-08-09] VITALS (99 sets, daily range): BP systolic 81–150; BP diastolic 45–82
[2019-08-09] MEDS: PROPOFOL 10MG/ML 100ML 100 ML IV PRN ×6 (02:35→20:54)
[2019-08-09] MEDS: FENTANYL CITRATE/PF 1,000 MCG in SODIUM CHLORIDE 0.9% 80 ML IV PRN ×5 (05:22→20:52)
[2019-08-09] MEDS: CALCIUM CARBONATE 500MG TABLET CHEW PO SCH ×3 (06:03→16:45)
[2019-08-09 08:01] LABS: BG CARBOXYHEMOGLOBIN 0.3 % (0.5-1.5); BG DEOXYHEMOGLOBIN 12.7 % (0.0-5.0); BG HCO3 ACT 37.4 mmol/L (22.0-26.0); BG METHEMOGLOBIN 0.3 % (0.0-1.5); BG OXYGEN SATURATION 87.2 % (92.0-98.5); BG OXYHEMOGLOBIN 86.7 % (94.0-97.0); BG PCO2 74.3 mmHg (35.0-45.0); BG PO2 57.4 mmHg (75.0-100.0); BG SAMPLE SITE RIGHT RADIAL; BG TIDAL VOLUME(mL) 350 mL; BG TOTAL HEMOGLOBIN 11.5 g/dL (12.0-18.0); BG VENT MODE VENT - A/C; BG VENT RATE 30 set
[2019-08-09] MEDS: METHYLPREDNISOLONE SOD SUCC 40 MG/ML VIAL IV SCH ×2 (08:24→20:13)
[2019-08-09] MEDS: ASCORBIC ACID 500 MG TABLET PO SCH ×2 (08:24→16:45)
[2019-08-09] MEDS: PANTOPRAZOLE SODIUM 40 MG/VIAL IV SCH (08:24)
[2019-08-09] MEDS: ZINC SULFATE 220 MG ( 50 ) CAPSULE PO SCH (08:24)
[2019-08-09] MEDS: THIAMINE HCL 100MG TABLET PO SCH ×2 (08:24→16:45)
[2019-08-09] MEDS: ENOXAPARIN 40MG/0.4ML SYR SUBCUT SCH (08:25)
[2019-08-09] MEDS: DOCUSATE SODIUM SUGAR FREE 100MG/10ML UDC NG SCH ×2 (08:25→16:45)
[2019-08-09] MEDS: ACETAMINOPHEN 325MG TABLET PO PRN ×2 (08:25→14:05)
[2019-08-09] MEDS: MIDAZOLAM HCL 100 MG in DEXT 5% WATER 80 ML IV PRN (10:22)
[2019-08-09 11:33] LABS: HEMATOCRIT. 30.9 % (42.0-52.0); HEMOGLOBIN. 10.5 g/dL (14.0-18.0); MEAN CORPUSCULAR HEMOGLOBIN 30.4 pg (28.0-32.0); MEAN CORPUSCULAR VOLUME 89.8 fL (80.0-94.0); MEAN PLATELET VOLUME 7.9 fl (7.4-10.4); PLATELET 499 x1000/uL (130-400); RED BLOOD CELL COUNT 3.44 mill/uL (4.7-6.1); RED CELL DISTRIBUTION WIDTH 13.1 % (11.6-14.6)
[2019-08-09 11:44] LABS: CHLORIDE 96 mEq/L (98-107)
[2019-08-09 12:36] LABS: PLATELET ESTIMATE SLIGHTLY INCREASED
[2019-08-09] MEDS ORDERED: FUROSEMIDE 40MG/4ML VIAL IVP SCH (14:15)
[2019-08-09 22:30] LABS: BG BASE EXCESS 14.5 mmol/L (-2.0-2.0); BG CARBOXYHEMOGLOBIN 0.3 % (0.5-1.5); BG FRACTION INSPIRED OXYGEN 100; BG HCO3 ACT 43.8 mmol/L (22.0-26.0); BG METHEMOGLOBIN 0.3 % (0.0-1.5); BG OXYGEN SATURATION 66.8 % (92.0-98.5); BG OXYHEMOGLOBIN 66.4 % (94.0-97.0); BG PCO2 83.4 mmHg (35.0-45.0); BG PH 7.338 (7.350-7.450); BG PO2 38.6 mmHg (75.0-100.0); BG SAMPLE SITE LEFT RADIAL; BG TIDAL VOLUME(mL) 400 mL; BG VENT MODE VENT - A/C; BG VENT RATE 30 set
[2019-08-09 23:58] LABS: BG BASE EXCESS 15.4 mmol/L (-2.0-2.0); BG FRACTION INSPIRED OXYGEN 100; BG HCO3 ACT 44.2 mmol/L (22.0-26.0); BG METHEMOGLOBIN 0.3 % (0.0-1.5); BG OXYGEN SATURATION 68.9 % (92.0-98.5); BG OXYHEMOGLOBIN 68.7 % (94.0-97.0); BG PCO2 80.2 mmHg (35.0-45.0); BG PH 7.359 (7.350-7.450); BG PO2 39.1 mmHg (75.0-100.0); BG SAMPLE SITE RIGHT RADIAL; BG TIDAL VOLUME(mL) 400 mL; BG TOTAL HEMOGLOBIN 11.5 g/dL (12.0-18.0); BG VENT MODE VENT - A/C; BG VENT RATE 34 set
[2019-08-10] VITALS (99 sets, daily range): BP systolic 87–140; BP diastolic 41–85
[2019-08-10] MEDS: PHENYLEPHRINE 40 MG in DEXT 5% WATER 246 ML IV PRN (00:25)
[2019-08-10] MEDS: PROPOFOL 10MG/ML 100ML 100 ML IV PRN ×5 (02:17→20:38)
[2019-08-10] MEDS: FENTANYL CITRATE/PF 1,000 MCG in SODIUM CHLORIDE 0.9% 80 ML IV PRN ×7 (03:16→23:35)
[2019-08-10] MEDS: PHENYLEPHRINE 80 MG in DEXT 5% WATER 492 ML IV PRN ×3 (04:27→20:00)
[2019-08-10 05:40] LABS: HEMATOCRIT. 30.8 % (42.0-52.0); HEMOGLOBIN. 10.4 g/dL (14.0-18.0); MEAN CORPUSCULAR HEMOGLOBIN 30.3 pg (28.0-32.0); MEAN CORPUSCULAR VOLUME 90.1 fL (80.0-94.0); PLATELET 524 x1000/uL (130-400); RED BLOOD CELL COUNT 3.42 mill/uL (4.7-6.1); RED CELL DISTRIBUTION WIDTH 13.5 % (11.6-14.6)
[2019-08-10] MEDS: CALCIUM CARBONATE 500MG TABLET CHEW PO SCH ×3 (07:00→16:01)
[2019-08-10] MEDS: MIDAZOLAM HCL 100 MG in DEXT 5% WATER 80 ML IV PRN ×2 (07:50→18:11)
[2019-08-10] MEDS: ASCORBIC ACID 500 MG TABLET PO SCH ×2 (08:02→16:01)
[2019-08-10] MEDS: PANTOPRAZOLE SODIUM 40 MG/VIAL IV SCH (08:02)
[2019-08-10] MEDS: DOCUSATE SODIUM SUGAR FREE 100MG/10ML UDC NG SCH ×2 (08:02→16:01)
[2019-08-10] MEDS: THIAMINE HCL 100MG TABLET PO SCH ×2 (08:02→16:01)
[2019-08-10] MEDS: ZINC SULFATE 220 MG ( 50 ) CAPSULE PO SCH (08:02)
[2019-08-10] MEDS: METHYLPREDNISOLONE SOD SUCC 40 MG/ML VIAL IV SCH ×2 (08:02→20:48)
[2019-08-10 08:03] LABS: CHLORIDE 95 mEq/L (98-107)
[2019-08-10] MEDS: ENOXAPARIN 40MG/0.4ML SYR SUBCUT SCH (08:03)
[2019-08-10 08:22] LABS: PHOSPHORUS 3.6 mg/dL (2.5-4.9)
[2019-08-10 10:07] LABS: NUCLEATED RED BLOOD CELLS 1 /100 WBC; PLATELET ESTIMATE INCREASED
[2019-08-10 10:09] LABS: BG BASE EXCESS 11.9 mmol/L (-2.0-2.0); BG CARBOXYHEMOGLOBIN 0.1 % (0.5-1.5); BG DEOXYHEMOGLOBIN 15.4 % (0.0-5.0); BG FRACTION INSPIRED OXYGEN 100; BG HCO3 ACT 41.3 mmol/L (22.0-26.0); BG METHEMOGLOBIN 0.4 % (0.0-1.5); BG OXYGEN SATURATION 84.5 % (92.0-98.5); BG OXYHEMOGLOBIN 84.1 % (94.0-97.0); BG PCO2 86.3 mmHg (35.0-45.0); BG PH 7.298 (7.350-7.450); BG PO2 55.9 mmHg (75.0-100.0); BG SAMPLE SITE RIGHT RADIAL; BG TIDAL VOLUME(mL) 400 mL; BG TOTAL HEMOGLOBIN 11.2 g/dL (12.0-18.0); BG VENT MODE VENT - A/C; BG VENT RATE 34 set
[2019-08-10] MEDS: MIDODRINE HCL 5MG TABLET PO SCH ×2 (15:34→17:26)
[2019-08-10] MEDS: PIPERACILLIN/TAZOBACTAM 3.375 G in DEXT 5% WATER 100 ML IV SCH ×2 (16:36→20:51)
[2019-08-11] VITALS (94 sets, daily range): BP systolic 94–137; BP diastolic 43–84
[2019-08-11] MEDS: PROPOFOL 10MG/ML 100ML 100 ML IV PRN ×7 (00:09→23:21)
[2019-08-11] MEDS: FENTANYL CITRATE/PF 1,000 MCG in SODIUM CHLORIDE 0.9% 80 ML IV PRN ×7 (02:32→21:05)
[2019-08-11] MEDS: PIPERACILLIN/TAZOBACTAM 3.375 G in DEXT 5% WATER 100 ML IV SCH ×5 (03:45→20:31)
[2019-08-11 04:06] LABS: HIV SCREEN 4G Non Reactive (Non Reactive)
[2019-08-11] MEDS: CALCIUM CARBONATE 500MG TABLET CHEW PO SCH ×3 (05:53→16:00)
[2019-08-11] MEDS: MIDAZOLAM HCL 100 MG in DEXT 5% WATER 80 ML IV PRN ×2 (06:49→16:51)
[2019-08-11 07:24] LABS: HEMATOCRIT. 26.7 % (42.0-52.0); HEMOGLOBIN. 8.9 g/dL (14.0-18.0); MEAN CORPUSCULAR VOLUME 90.7 fL (80.0-94.0); MEAN PLATELET VOLUME 8.1 fl (7.4-10.4); PLATELET 489 x1000/uL (130-400); RED BLOOD CELL COUNT 2.95 mill/uL (4.7-6.1); RED CELL DISTRIBUTION WIDTH 13.7 % (11.6-14.6)
[2019-08-11 07:57] LABS: CHLORIDE 97 mEq/L (98-107)
[2019-08-11 08:03] LABS: BG BASE EXCESS 16.9 mmol/L (-2.0-2.0); BG CARBOXYHEMOGLOBIN 0.3 % (0.5-1.5); BG DEOXYHEMOGLOBIN 14.6 % (0.0-5.0); BG HCO3 ACT 42.9 mmol/L (22.0-26.0); BG OXYGEN SATURATION 85.4 % (92.0-98.5); BG OXYHEMOGLOBIN 85.1 % (94.0-97.0); BG PCO2 60.7 mmHg (35.0-45.0); BG PH 7.467 (7.350-7.450); BG PO2 47.9 mmHg (75.0-100.0); BG SAMPLE SITE RIGHT RADIAL; BG TIDAL VOLUME(mL) 400 mL; BG TOTAL HEMOGLOBIN 9.5 g/dL (12.0-18.0); BG VENT MODE VENT - A/C
[2019-08-11] MEDS: ASCORBIC ACID 500 MG TABLET PO SCH ×2 (08:57→16:00)
[2019-08-11] MEDS: ZINC SULFATE 220 MG ( 50 ) CAPSULE PO SCH (08:57)
[2019-08-11] MEDS: THIAMINE HCL 100MG TABLET PO SCH ×2 (08:57→16:00)
[2019-08-11] MEDS: METHYLPREDNISOLONE SOD SUCC 40 MG/ML VIAL IV SCH ×2 (08:57→20:31)
[2019-08-11] MEDS: PANTOPRAZOLE SODIUM 40 MG/VIAL IV SCH (08:57)
[2019-08-11] MEDS: ENOXAPARIN 40MG/0.4ML SYR SUBCUT SCH (08:58)
[2019-08-11] MEDS: DOCUSATE SODIUM SUGAR FREE 100MG/10ML UDC NG SCH ×2 (08:58→16:00)
[2019-08-11] MEDS: MIDODRINE HCL 5MG TABLET PO SCH ×3 (09:02→16:00)
[2019-08-11 10:12] LABS: BG VENT RATE 34 set
[2019-08-11] MEDS ORDERED: LACTULOSE 20G/30ML UDC PO NR (10:15)
[2019-08-11 10:51] LABS: PLATELET ESTIMATE INCREASED
[2019-08-11 14:28] LABS: BG BASE EXCESS 13.6 mmol/L (-2.0-2.0); BG CARBOXYHEMOGLOBIN 0.3 % (0.5-1.5); BG DEOXYHEMOGLOBIN 14.6 % (0.0-5.0); BG HCO3 ACT 40.4 mmol/L (22.0-26.0); BG METHEMOGLOBIN 0.2 % (0.0-1.5); BG OXYGEN SATURATION 85.3 % (92.0-98.5); BG OXYHEMOGLOBIN 84.9 % (94.0-97.0); BG PCO2 65.4 mmHg (35.0-45.0); BG PH 7.409 (7.350-7.450); BG PIP 26 cmH2O; BG PO2 53.6 mmHg (75.0-100.0); BG SAMPLE SITE RIGHT RADIAL; BG TIDAL VOLUME(mL) 430 mL; BG TOTAL HEMOGLOBIN 10.1 g/dL (12.0-18.0); BG VENT MODE VENT - PCV; BG VENT RATE 30 set
[2019-08-11] MEDS: PHENYLEPHRINE 80 MG in DEXT 5% WATER 492 ML IV PRN (21:02)
[2019-08-11] MEDS: ACETAMINOPHEN 650MG/20.3ML UDC NG PRN (22:11)
[2019-08-12] VITALS (97 sets, daily range): BP systolic 88–140; BP diastolic 40–90
[2019-08-12] MEDS: FENTANYL CITRATE/PF 1,000 MCG in SODIUM CHLORIDE 0.9% 80 ML IV PRN ×5 (00:15→13:50)
[2019-08-12] MEDS: PIPERACILLIN/TAZOBACTAM 3.375 G in DEXT 5% WATER 100 ML IV SCH ×4 (02:16→20:30)
[2019-08-12] MEDS: MIDAZOLAM HCL 100 MG in DEXT 5% WATER 80 ML IV PRN ×2 (02:17→15:16)
[2019-08-12] MEDS: PROPOFOL 10MG/ML 100ML 100 ML IV PRN ×6 (03:08→23:48)
[2019-08-12 06:20] LABS: HEMATOCRIT. 28.9 % (42.0-52.0); HEMOGLOBIN. 9.5 g/dL (14.0-18.0); MEAN CORPUSCULAR HEMOGLOBIN 29.9 pg (28.0-32.0); MEAN CORPUSCULAR VOLUME 91.4 fL (80.0-94.0); MEAN PLATELET VOLUME 8.2 fl (7.4-10.4); PLATELET 462 x1000/uL (130-400); RED BLOOD CELL COUNT 3.17 mill/uL (4.7-6.1); RED CELL DISTRIBUTION WIDTH 13.9 % (11.6-14.6)
[2019-08-12 06:29] LABS: CHLORIDE 95 mEq/L (98-107)
[2019-08-12 08:47] LABS: BG BASE EXCESS 12.8 mmol/L (-2.0-2.0); BG CARBOXYHEMOGLOBIN 0.3 % (0.5-1.5); BG DEOXYHEMOGLOBIN 12.3 % (0.0-5.0); BG FRACTION INSPIRED OXYGEN 100; BG HCO3 ACT 39.1 mmol/L (22.0-26.0); BG METHEMOGLOBIN 0.3 % (0.0-1.5); BG OXYGEN SATURATION 87.6 % (92.0-98.5); BG OXYHEMOGLOBIN 87.1 % (94.0-97.0); BG PCO2 61.5 mmHg (35.0-45.0); BG PH 7.421 (7.350-7.450); BG PO2 56.6 mmHg (75.0-100.0); BG SAMPLE SITE RIGHT RADIAL; BG TOTAL HEMOGLOBIN 9.6 g/dL (12.0-18.0); BG VENT MODE VENT - PCV; BG VENT RATE 30 set
[2019-08-12] MEDS: THIAMINE HCL 100MG TABLET PO SCH ×2 (08:48→17:41)
[2019-08-12] MEDS: METHYLPREDNISOLONE SOD SUCC 40 MG/ML VIAL IV SCH ×2 (08:48→20:30)
[2019-08-12] MEDS: PANTOPRAZOLE SODIUM 40 MG/VIAL IV SCH (08:48)
[2019-08-12] MEDS: ZINC SULFATE 220 MG ( 50 ) CAPSULE PO SCH (08:48)
[2019-08-12] MEDS: CALCIUM CARBONATE 500MG TABLET CHEW PO SCH ×3 (08:48→17:41)
[2019-08-12] MEDS: MIDODRINE HCL 5MG TABLET PO SCH ×3 (08:49→17:41)
[2019-08-12] MEDS: ASCORBIC ACID 500 MG TABLET PO SCH ×2 (09:00→17:41)
[2019-08-12] MEDS: ENOXAPARIN 40MG/0.4ML SYR SUBCUT SCH (09:03)
[2019-08-12] MEDS: DOCUSATE SODIUM SUGAR FREE 100MG/10ML UDC NG SCH ×2 (09:03→17:40)
[2019-08-12] MEDS ORDERED: SORBITOL 70% SOLN 30ML PO NR (11:05)
[2019-08-12 11:38] LABS: PLATELET ESTIMATE INCREASED
[2019-08-12] MEDS ORDERED: PROPOFOL 10MG/ML 100ML 100 ML IV PRN (16:00)
[2019-08-12] MEDS: FENTANYL CITRATE/PF 2,500 MCG in SODIUM CHLORIDE 0.9% 200 ML IV PRN (16:36)
[2019-08-13] VITALS (73 sets, daily range): BP systolic 88–160; BP diastolic 42–88
[2019-08-13] MEDS: FENTANYL CITRATE/PF 2,500 MCG in SODIUM CHLORIDE 0.9% 200 ML IV PRN ×4 (00:02→23:37)
[2019-08-13] MEDS: ACETAMINOPHEN 650MG/20.3ML UDC NG PRN ×3 (00:13→23:00)
[2019-08-13] MEDS: MIDAZOLAM HCL 100 MG in DEXT 5% WATER 80 ML IV PRN ×3 (01:59→23:34)
[2019-08-13] MEDS: PIPERACILLIN/TAZOBACTAM 3.375 G in DEXT 5% WATER 100 ML IV SCH ×4 (02:01→20:07)
[2019-08-13] MEDS: PROPOFOL 10MG/ML 100ML 100 ML IV PRN ×6 (03:36→23:59)
[2019-08-13 06:21] LABS: HEMATOCRIT. 29.6 % (42.0-52.0); HEMOGLOBIN. 9.7 g/dL (14.0-18.0); MEAN CORPUSCULAR HEMOGLOBIN 29.7 pg (28.0-32.0); MEAN CORPUSCULAR VOLUME 90.4 fL (80.0-94.0); PLATELET 454 x1000/uL (130-400); RED BLOOD CELL COUNT 3.27 mill/uL (4.7-6.1); RED CELL DISTRIBUTION WIDTH 13.5 % (11.6-14.6)
[2019-08-13 06:25] LABS: CHLORIDE 95 mEq/L (98-107)
[2019-08-13 06:31] LABS: PHOSPHORUS 3.2 mg/dL (2.5-4.9)
[2019-08-13 08:19] LABS: PLATELET ESTIMATE INCREASED
[2019-08-13] MEDS: METHYLPREDNISOLONE SOD SUCC 40 MG/ML VIAL IV SCH ×2 (08:29→21:00)
[2019-08-13] MEDS: ENOXAPARIN 40MG/0.4ML SYR SUBCUT SCH (08:30)
[2019-08-13] MEDS: PANTOPRAZOLE SODIUM 40 MG/VIAL IV SCH (08:30)
[2019-08-13] MEDS: ZINC SULFATE 220 MG ( 50 ) CAPSULE PO SCH (08:33)
[2019-08-13] MEDS: MIDODRINE HCL 5MG TABLET PO SCH ×3 (08:33→16:20)
[2019-08-13] MEDS: DOCUSATE SODIUM SUGAR FREE 100MG/10ML UDC NG SCH ×2 (08:33→16:19)
[2019-08-13] MEDS: ASCORBIC ACID 500 MG TABLET PO SCH ×2 (08:33→16:20)
[2019-08-13] MEDS: CALCIUM CARBONATE 500MG TABLET CHEW PO SCH ×3 (08:33→16:19)
[2019-08-13] MEDS: THIAMINE HCL 100MG TABLET PO SCH ×2 (08:33→16:19)
[2019-08-13 08:48] LABS: BG BASE EXCESS 9.2 mmol/L (-2.0-2.0); BG CARBOXYHEMOGLOBIN 0.3 % (0.5-1.5); BG DEOXYHEMOGLOBIN 5.4 % (0.0-5.0); BG FRACTION INSPIRED OXYGEN 100; BG METHEMOGLOBIN 0.4 % (0.0-1.5); BG OXYGEN SATURATION 94.6 % (92.0-98.5); BG OXYHEMOGLOBIN 93.9 % (94.0-97.0); BG PCO2 53.6 mmHg (35.0-45.0); BG PH 7.433 (7.350-7.450); BG PO2 75.3 mmHg (75.0-100.0); BG SAMPLE SITE RIGHT BRACHIAL; BG TOTAL HEMOGLOBIN 11.7 g/dL (12.0-18.0); BG VENT MODE VENT - PCV; BG VENT RATE 26 set
[2019-08-14] VITALS (88 sets, daily range): BP systolic 80–162; BP diastolic 37–96
[2019-08-14] MEDS: PIPERACILLIN/TAZOBACTAM 3.375 G in DEXT 5% WATER 100 ML IV SCH ×4 (02:06→20:58)
[2019-08-14] MEDS: PROPOFOL 10MG/ML 100ML 100 ML IV PRN ×5 (04:14→23:11)
[2019-08-14 05:48] LABS: CHLORIDE 97 mEq/L (98-107)
[2019-08-14 05:52] LABS: HEMATOCRIT. 29.5 % (42.0-52.0); HEMOGLOBIN. 9.6 g/dL (14.0-18.0); MEAN CORPUSCULAR HEMOGLOBIN 29.8 pg (28.0-32.0); MEAN CORPUSCULAR VOLUME 91.3 fL (80.0-94.0); MEAN PLATELET VOLUME 7.9 fl (7.4-10.4); PLATELET 419 x1000/uL (130-400); RED BLOOD CELL COUNT 3.23 mill/uL (4.7-6.1); RED CELL DISTRIBUTION WIDTH 13.8 % (11.6-14.6)
[2019-08-14] MEDS: CALCIUM CARBONATE 500MG TABLET CHEW PO SCH ×3 (06:37→16:21)
[2019-08-14] MEDS: FENTANYL CITRATE/PF 2,500 MCG in SODIUM CHLORIDE 0.9% 200 ML IV PRN ×3 (07:06→22:45)
[2019-08-14 08:54] LABS: BG CARBOXYHEMOGLOBIN 0.3 % (0.5-1.5); BG DEOXYHEMOGLOBIN 4.7 % (0.0-5.0); BG FRACTION INSPIRED OXYGEN 100; BG HCO3 ACT 39.6 mmol/L (22.0-26.0); BG METHEMOGLOBIN 0.2 % (0.0-1.5); BG OXYGEN SATURATION 95.3 % (92.0-98.5); BG OXYHEMOGLOBIN 94.8 % (94.0-97.0); BG PH 7.416 (7.350-7.450); BG PIP 16 cmH2O; BG PO2 82.7 mmHg (75.0-100.0); BG SAMPLE SITE RIGHT RADIAL; BG TOTAL HEMOGLOBIN 9.9 g/dL (12.0-18.0); BG VENT MODE VENT - PCV; BG VENT RATE 30 set
[2019-08-14 09:17] LABS: PLATELET ESTIMATE INCREASED
[2019-08-14] MEDS: MIDAZOLAM HCL 100 MG in DEXT 5% WATER 80 ML IV PRN ×2 (09:25→19:36)
[2019-08-14] MEDS: METHYLPREDNISOLONE SOD SUCC 40 MG/ML VIAL IV SCH ×2 (09:39→20:58)
[2019-08-14] MEDS: PANTOPRAZOLE SODIUM 40 MG/VIAL IV SCH (09:39)
[2019-08-14] MEDS: THIAMINE HCL 100MG TABLET PO SCH ×2 (09:40→16:21)
[2019-08-14] MEDS: ASCORBIC ACID 500 MG TABLET PO SCH ×2 (09:40→16:21)
[2019-08-14] MEDS: MIDODRINE HCL 5MG TABLET PO SCH ×3 (09:40→16:21)
[2019-08-14] MEDS: ZINC SULFATE 220 MG ( 50 ) CAPSULE PO SCH (09:40)
[2019-08-14] MEDS: ENOXAPARIN 40MG/0.4ML SYR SUBCUT SCH (09:40)
[2019-08-14] MEDS: DOCUSATE SODIUM SUGAR FREE 100MG/10ML UDC NG SCH ×2 (09:40→16:21)
[2019-08-14] MEDS: ACETAMINOPHEN 650MG/20.3ML UDC NG PRN (18:59)
[2019-08-15] VITALS (61 sets, daily range): BP systolic 93–133; BP diastolic 41–71
[2019-08-15] MEDS: PIPERACILLIN/TAZOBACTAM 3.375 G in DEXT 5% WATER 100 ML IV SCH ×4 (02:27→21:20)
[2019-08-15] MEDS: PROPOFOL 10MG/ML 100ML 100 ML IV PRN ×6 (02:28→22:22)
[2019-08-15 05:59] LABS: HEMATOCRIT. 28.7 % (42.0-52.0); HEMOGLOBIN. 9.3 g/dL (14.0-18.0); MEAN CORPUSCULAR HEMOGLOBIN 29.9 pg (28.0-32.0); MEAN CORPUSCULAR VOLUME 91.8 fL (80.0-94.0); MEAN PLATELET VOLUME 7.7 fl (7.4-10.4); PLATELET 354 x1000/uL (130-400); RED BLOOD CELL COUNT 3.12 mill/uL (4.7-6.1); RED CELL DISTRIBUTION WIDTH 14.1 % (11.6-14.6)
[2019-08-15] MEDS: FENTANYL CITRATE/PF 2,500 MCG in SODIUM CHLORIDE 0.9% 200 ML IV PRN ×3 (06:17→21:34)
[2019-08-15] MEDS: CALCIUM CARBONATE 500MG TABLET CHEW PO SCH ×3 (06:17→17:33)
[2019-08-15 06:18] LABS: CHLORIDE 99 mEq/L (98-107)
[2019-08-15] MEDS: MIDAZOLAM HCL 100 MG in DEXT 5% WATER 80 ML IV PRN ×3 (06:18→17:33)
[2019-08-15 08:33] LABS: PLATELET ESTIMATE NORMAL
[2019-08-15 08:56] LABS: BG BASE EXCESS 15.3 mmol/L (-2.0-2.0); BG CARBOXYHEMOGLOBIN 0.8 % (0.5-1.5); BG DEOXYHEMOGLOBIN 4.9 % (0.0-5.0); BG FRACTION INSPIRED OXYGEN 100; BG HCO3 ACT 43.8 mmol/L (22.0-26.0); BG METHEMOGLOBIN 0.4 % (0.0-1.5); BG OXYHEMOGLOBIN 93.9 % (94.0-97.0); BG PCO2 80.3 mmHg (35.0-45.0); BG PH 7.355 (7.350-7.450); BG PO2 91.4 mmHg (75.0-100.0); BG SAMPLE SITE RIGHT RADIAL; BG TIDAL VOLUME(mL) 400 mL; BG TOTAL HEMOGLOBIN 10.6 g/dL (12.0-18.0); BG VENT MODE PRVC; BG VENT RATE 26 set
[2019-08-15] MEDS: PANTOPRAZOLE SODIUM 40 MG/VIAL IV SCH (09:00)
[2019-08-15] MEDS: METHYLPREDNISOLONE SOD SUCC 40 MG/ML VIAL IV SCH ×2 (09:00→21:20)
[2019-08-15] MEDS: DOCUSATE SODIUM SUGAR FREE 100MG/10ML UDC NG SCH ×2 (09:00→17:00)
[2019-08-15] MEDS: ZINC SULFATE 220 MG ( 50 ) CAPSULE PO SCH (09:01)
[2019-08-15] MEDS: ASCORBIC ACID 500 MG TABLET PO SCH ×2 (09:01→17:33)
[2019-08-15] MEDS: MIDODRINE HCL 5MG TABLET PO SCH ×3 (09:01→17:33)
[2019-08-15] MEDS: ENOXAPARIN 40MG/0.4ML SYR SUBCUT SCH (09:01)
[2019-08-15] MEDS: THIAMINE HCL 100MG TABLET PO SCH ×2 (09:02→17:33)
[2019-08-15] MEDS ORDERED: FUROSEMIDE 20MG/2ML VIAL IVP ONE (10:45)
[2019-08-15] MEDS ORDERED: FUROSEMIDE 20MG/2ML VIAL IVP NR (11:15)
[2019-08-16] VITALS (82 sets, daily range): BP systolic 80–162; BP diastolic 34–95
[2019-08-16] MEDS: PROPOFOL 10MG/ML 100ML 100 ML IV PRN ×5 (02:00→23:44)
[2019-08-16] MEDS: MIDAZOLAM HCL 100 MG in DEXT 5% WATER 80 ML IV PRN ×3 (03:31→22:09)
[2019-08-16] MEDS: FENTANYL CITRATE/PF 2,500 MCG in SODIUM CHLORIDE 0.9% 200 ML IV PRN ×3 (05:07→22:07)
[2019-08-16 05:38] LABS: HEMATOCRIT. 26.5 % (42.0-52.0); HEMOGLOBIN. 8.5 g/dL (14.0-18.0); MEAN CORPUSCULAR HEMOGLOBIN 29.6 pg (28.0-32.0); MEAN CORPUSCULAR VOLUME 92.5 fL (80.0-94.0); MEAN PLATELET VOLUME 7.8 fl (7.4-10.4); PLATELET 348 x1000/uL (130-400); RED BLOOD CELL COUNT 2.86 mill/uL (4.7-6.1)
[2019-08-16 05:44] LABS: CHLORIDE 98 mEq/L (98-107)
[2019-08-16] MEDS: CALCIUM CARBONATE 500MG TABLET CHEW PO SCH ×3 (06:25→17:11)
[2019-08-16] MEDS: DOCUSATE SODIUM SUGAR FREE 100MG/10ML UDC NG SCH ×2 (08:05→17:11)
[2019-08-16] MEDS: ZINC SULFATE 220 MG ( 50 ) CAPSULE PO SCH (08:05)
[2019-08-16] MEDS: MIDODRINE HCL 5MG TABLET PO SCH ×3 (08:06→17:11)
[2019-08-16] MEDS: ASCORBIC ACID 500 MG TABLET PO SCH ×2 (08:07→17:11)
[2019-08-16] MEDS: THIAMINE HCL 100MG TABLET PO SCH ×2 (08:07→17:11)
[2019-08-16] MEDS: PANTOPRAZOLE SODIUM 40 MG/VIAL IV SCH (08:07)
[2019-08-16] MEDS: ENOXAPARIN 40MG/0.4ML SYR SUBCUT SCH (08:07)
[2019-08-16] MEDS: METHYLPREDNISOLONE SOD SUCC 40 MG/ML VIAL IV SCH ×2 (08:07→19:19)
[2019-08-16 09:04] LABS: BG BASE EXCESS 15.5 mmol/L (-2.0-2.0); BG CARBOXYHEMOGLOBIN 0.6 % (0.5-1.5); BG DEOXYHEMOGLOBIN 6.2 % (0.0-5.0); BG FRACTION INSPIRED OXYGEN 100; BG HCO3 ACT 42.5 mmol/L (22.0-26.0); BG METHEMOGLOBIN 0.2 % (0.0-1.5); BG OXYGEN SATURATION 93.8 % (92.0-98.5); BG PCO2 71.9 mmHg (35.0-45.0); BG PO2 70.8 mmHg (75.0-100.0); BG SAMPLE SITE RIGHT RADIAL; BG TIDAL VOLUME(mL) 400 mL; BG TOTAL HEMOGLOBIN 8.3 g/dL (12.0-18.0); BG VENT MODE PRVC; BG VENT RATE 30 set
[2019-08-16 10:44] LABS: PLATELET ESTIMATE NORMAL
[2019-08-17] VITALS (85 sets, daily range): BP systolic 86–152; BP diastolic 41–100
[2019-08-17] MEDS: PROPOFOL 10MG/ML 100ML 100 ML IV PRN ×5 (02:07→20:59)
[2019-08-17 04:53] LABS: HEMATOCRIT. 24.8 % (42.0-52.0); HEMOGLOBIN. 8.1 g/dL (14.0-18.0); MEAN CORPUSCULAR VOLUME 92.1 fL (80.0-94.0); MEAN PLATELET VOLUME 7.4 fl (7.4-10.4); PLATELET 372 x1000/uL (130-400); RED BLOOD CELL COUNT 2.69 mill/uL (4.7-6.1)
[2019-08-17 05:01] LABS: CHLORIDE 98 mEq/L (98-107)
[2019-08-17] MEDS: MIDAZOLAM HCL 100 MG in DEXT 5% WATER 80 ML IV PRN ×2 (08:23→17:33)
[2019-08-17] MEDS: FENTANYL CITRATE/PF 2,500 MCG in SODIUM CHLORIDE 0.9% 200 ML IV PRN ×2 (08:24→16:29)
[2019-08-17] MEDS: DOCUSATE SODIUM SUGAR FREE 100MG/10ML UDC NG SCH ×2 (08:51→17:31)
[2019-08-17] MEDS: ASCORBIC ACID 500 MG TABLET PO SCH ×2 (08:52→17:32)
[2019-08-17] MEDS: MIDODRINE HCL 5MG TABLET PO SCH ×3 (08:52→17:32)
[2019-08-17] MEDS: ENOXAPARIN 40MG/0.4ML SYR SUBCUT SCH (08:52)
[2019-08-17] MEDS: METHYLPREDNISOLONE SOD SUCC 40 MG/ML VIAL IV SCH ×2 (08:52→21:01)
[2019-08-17] MEDS: PANTOPRAZOLE SODIUM 40 MG/VIAL IV SCH (08:52)
[2019-08-17] MEDS: CALCIUM CARBONATE 500MG TABLET CHEW PO SCH ×3 (08:52→17:32)
[2019-08-17] MEDS: THIAMINE HCL 100MG TABLET PO SCH ×2 (08:53→17:32)
[2019-08-17] MEDS: ZINC SULFATE 220 MG ( 50 ) CAPSULE PO SCH (08:55)
[2019-08-17 09:05] LABS: BG BASE EXCESS 11.8 mmol/L (-2.0-2.0); BG CARBOXYHEMOGLOBIN 0.3 % (0.5-1.5); BG DEOXYHEMOGLOBIN 1.9 % (0.0-5.0); BG FRACTION INSPIRED OXYGEN 100; BG HCO3 ACT 39.5 mmol/L (22.0-26.0); BG METHEMOGLOBIN 0.4 % (0.0-1.5); BG OXYGEN SATURATION 98.1 % (92.0-98.5); BG OXYHEMOGLOBIN 97.4 % (94.0-97.0); BG PCO2 72.9 mmHg (35.0-45.0); BG PH 7.352 (7.350-7.450); BG PO2 129.1 mmHg (75.0-100.0); BG SAMPLE SITE RIGHT RADIAL; BG TIDAL VOLUME(mL) 400 mL; BG TOTAL HEMOGLOBIN 9.8 g/dL (12.0-18.0); BG VENT MODE VENT - PCV; BG VENT RATE 30 set
[2019-08-17 09:27] LABS: PLATELET ESTIMATE NORMAL
[2019-08-18] VITALS (95 sets, daily range): BP systolic 87–145; BP diastolic 36–91
[2019-08-18] MEDS: FENTANYL CITRATE/PF 2,500 MCG in SODIUM CHLORIDE 0.9% 200 ML IV PRN ×4 (00:13→22:13)
[2019-08-18] MEDS: PROPOFOL 10MG/ML 100ML 100 ML IV PRN ×7 (01:53→23:38)
[2019-08-18] MEDS: MIDAZOLAM HCL 100 MG in DEXT 5% WATER 80 ML IV PRN ×2 (04:16→13:06)
[2019-08-18 05:28] LABS: HEMATOCRIT. 27.7 % (42.0-52.0); MEAN CORPUSCULAR VOLUME 92.4 fL (80.0-94.0); MEAN PLATELET VOLUME 7.7 fl (7.4-10.4); PLATELET 434 x1000/uL (130-400); RED CELL DISTRIBUTION WIDTH 14.4 % (11.6-14.6)
[2019-08-18 05:46] LABS: CHLORIDE 96 mEq/L (98-107)
[2019-08-18 08:06] LABS: BG BASE EXCESS 12.9 mmol/L (-2.0-2.0); BG CARBOXYHEMOGLOBIN 0.1 % (0.5-1.5); BG DEOXYHEMOGLOBIN 1.7 % (0.0-5.0); BG HCO3 ACT 39.4 mmol/L (22.0-26.0); BG METHEMOGLOBIN 0.4 % (0.0-1.5); BG OXYGEN SATURATION 98.3 % (92.0-98.5); BG OXYHEMOGLOBIN 97.8 % (94.0-97.0); BG PCO2 64.1 mmHg (35.0-45.0); BG PH 7.407 (7.350-7.450); BG PO2 125.3 mmHg (75.0-100.0); BG SAMPLE SITE RIGHT BRACHIAL; BG TIDAL VOLUME(mL) 400 mL; BG TOTAL HEMOGLOBIN 8.9 g/dL (12.0-18.0); BG VENT MODE VENT - A/C; BG VENT RATE 30 set
[2019-08-18] MEDS: DOCUSATE SODIUM SUGAR FREE 100MG/10ML UDC NG SCH ×2 (08:41→17:07)
[2019-08-18] MEDS: ENOXAPARIN 40MG/0.4ML SYR SUBCUT SCH (08:41)
[2019-08-18] MEDS: METHYLPREDNISOLONE SOD SUCC 40 MG/ML VIAL IV SCH (08:41)
[2019-08-18] MEDS: CALCIUM CARBONATE 500MG TABLET CHEW PO SCH ×3 (08:46→17:07)
[2019-08-18] MEDS: MIDODRINE HCL 5MG TABLET PO SCH ×3 (08:47→17:07)
[2019-08-18] MEDS: PANTOPRAZOLE SODIUM 40 MG/VIAL IV SCH (08:47)
[2019-08-18] MEDS: ASCORBIC ACID 500 MG TABLET PO SCH ×2 (08:47→17:07)
[2019-08-18] MEDS: THIAMINE HCL 100MG TABLET PO SCH ×2 (08:48→17:08)
[2019-08-18] MEDS: ZINC SULFATE 220 MG ( 50 ) CAPSULE PO SCH (08:48)
[2019-08-18 09:46] LABS: PLATELET ESTIMATE SLIGHTLY INCREASED
[2019-08-18] MEDS: DAPTOMYCIN 500 MG in SODIUM CHLORIDE 0.9% 50 ML IV SCH (18:45)
[2019-08-19] VITALS (96 sets, daily range): BP systolic 82–151; BP diastolic 33–86
[2019-08-19] MEDS: LORAZEPAM 2MG/ML CPJ IV PRN ×5 (00:22→16:23)
[2019-08-19] MEDS: MIDAZOLAM HCL 100 MG in DEXT 5% WATER 80 ML IV PRN ×3 (01:06→18:30)
[2019-08-19] MEDS: PROPOFOL 10MG/ML 100ML 100 ML IV PRN ×5 (03:06→18:31)
[2019-08-19] MEDS: FENTANYL CITRATE/PF 2,500 MCG in SODIUM CHLORIDE 0.9% 200 ML IV PRN ×3 (05:38→18:30)
[2019-08-19 05:54] LABS: CHLORIDE 98 mEq/L (98-107)
[2019-08-19 06:02] LABS: HEMATOCRIT. 25.1 % (42.0-52.0); HEMOGLOBIN. 8.2 g/dL (14.0-18.0); MEAN CORPUSCULAR HEMOGLOBIN 30.2 pg (28.0-32.0); MEAN CORPUSCULAR VOLUME 92.4 fL (80.0-94.0); MEAN PLATELET VOLUME 7.4 fl (7.4-10.4); PLATELET 364 x1000/uL (130-400); RED BLOOD CELL COUNT 2.72 mill/uL (4.7-6.1); RED CELL DISTRIBUTION WIDTH 14.6 % (11.6-14.6)
[2019-08-19] MEDS: CALCIUM CARBONATE 500MG TABLET CHEW PO SCH ×3 (07:07→16:22)
[2019-08-19 07:43] LABS: PLATELET ESTIMATE NORMAL
[2019-08-19] MEDS: ENOXAPARIN 40MG/0.4ML SYR SUBCUT SCH (08:42)
[2019-08-19] MEDS: METHYLPREDNISOLONE SOD SUCC 40 MG/ML VIAL IV SCH (08:42)
[2019-08-19] MEDS: ASCORBIC ACID 500 MG TABLET PO SCH ×2 (08:42→16:22)
[2019-08-19] MEDS: THIAMINE HCL 100MG TABLET PO SCH ×2 (08:42→16:23)
[2019-08-19] MEDS: ZINC SULFATE 220 MG ( 50 ) CAPSULE PO SCH (08:42)
[2019-08-19] MEDS: MIDODRINE HCL 5MG TABLET PO SCH ×3 (08:42→16:23)
[2019-08-19] MEDS: MULTIVITAMINS,THER W-MINERALS TABLET PO SCH (08:42)
[2019-08-19] MEDS: PANTOPRAZOLE SODIUM 40 MG/VIAL IV SCH (08:42)
[2019-08-19] MEDS: DOCUSATE SODIUM SUGAR FREE 100MG/10ML UDC NG SCH ×2 (08:43→16:22)
[2019-08-19 08:59] LABS: BG BASE EXCESS 15.2 mmol/L (-2.0-2.0); BG CARBOXYHEMOGLOBIN 0.3 % (0.5-1.5); BG DEOXYHEMOGLOBIN 8.9 % (0.0-5.0); BG FRACTION INSPIRED OXYGEN 80; BG HCO3 ACT 42.7 mmol/L (22.0-26.0); BG METHEMOGLOBIN 0.2 % (0.0-1.5); BG OXYGEN SATURATION 91.1 % (92.0-98.5); BG OXYHEMOGLOBIN 90.6 % (94.0-97.0); BG PCO2 72.6 mmHg (35.0-45.0); BG PH 7.387 (7.350-7.450); BG PO2 63.3 mmHg (75.0-100.0); BG SAMPLE SITE RIGHT RADIAL; BG TIDAL VOLUME(mL) 400 mL; BG TOTAL HEMOGLOBIN 9.8 g/dL (12.0-18.0); BG VENT MODE VENTA/C PRVC; BG VENT RATE 30 set
[2019-08-19] MEDS: ACETAMINOPHEN 650MG/20.3ML UDC NG PRN (09:12)
[2019-08-19] MEDS ORDERED: POTASSIUM CHLORIDE 20MEQ TABLET SR PO NR (11:00)
[2019-08-19] MEDS: DAPTOMYCIN 500 MG in SODIUM CHLORIDE 0.9% 50 ML IV SCH (17:44)
[2019-08-20] VITALS (96 sets, daily range): BP systolic 81–144; BP diastolic 45–87
[2019-08-20] MEDS: PROPOFOL 10MG/ML 100ML 100 ML IV PRN ×6 (00:15→23:28)
[2019-08-20] MEDS: MIDAZOLAM HCL 100 MG in DEXT 5% WATER 80 ML IV PRN ×3 (00:16→17:00)
[2019-08-20] MEDS: FENTANYL CITRATE/PF 2,500 MCG in SODIUM CHLORIDE 0.9% 200 ML IV PRN ×3 (03:05→18:05)
[2019-08-20] MEDS: LORAZEPAM 2MG/ML CPJ IV PRN ×2 (05:10→07:05)
[2019-08-20 05:21] LABS: HEMATOCRIT. 25.1 % (42.0-52.0); HEMOGLOBIN. 8.2 g/dL (14.0-18.0); MEAN CORPUSCULAR HEMOGLOBIN 30.5 pg (28.0-32.0); MEAN CORPUSCULAR VOLUME 93.1 fL (80.0-94.0); MEAN PLATELET VOLUME 7.5 fl (7.4-10.4); PLATELET 383 x1000/uL (130-400); RED CELL DISTRIBUTION WIDTH 14.9 % (11.6-14.6)
[2019-08-20 05:23] LABS: CHLORIDE 99 mEq/L (98-107)
[2019-08-20 08:04] LABS: PLATELET ESTIMATE NORMAL
[2019-08-20 08:12] LABS: BG BASE EXCESS 13.6 mmol/L (-2.0-2.0); BG CARBOXYHEMOGLOBIN 0.3 % (0.5-1.5); BG DEOXYHEMOGLOBIN 3.6 % (0.0-5.0); BG FRACTION INSPIRED OXYGEN 80; BG HCO3 ACT 39.5 mmol/L (22.0-26.0); BG METHEMOGLOBIN 0.3 % (0.0-1.5); BG OXYGEN SATURATION 96.4 % (92.0-98.5); BG OXYHEMOGLOBIN 95.8 % (94.0-97.0); BG PCO2 61.8 mmHg (35.0-45.0); BG PH 7.424 (7.350-7.450); BG PO2 90.9 mmHg (75.0-100.0); BG SAMPLE SITE RIGHT RADIAL; BG TIDAL VOLUME(mL) 400 mL; BG TOTAL HEMOGLOBIN 7.4 g/dL (12.0-18.0); BG VENT MODE VENT - PCV; BG VENT RATE 30 set
[2019-08-20] MEDS: MIDODRINE HCL 5MG TABLET PO SCH ×3 (08:35→18:02)
[2019-08-20] MEDS: ASCORBIC ACID 500 MG TABLET PO SCH ×2 (08:35→18:02)
[2019-08-20] MEDS: ACETAMINOPHEN 650MG/20.3ML UDC NG PRN ×2 (08:35→13:13)
[2019-08-20] MEDS: PANTOPRAZOLE SODIUM 40 MG/VIAL IV SCH (08:35)
[2019-08-20] MEDS: METHYLPREDNISOLONE SOD SUCC 40 MG/ML VIAL IV SCH (08:36)
[2019-08-20] MEDS: DOCUSATE SODIUM SUGAR FREE 100MG/10ML UDC NG SCH ×2 (08:36→18:03)
[2019-08-20] MEDS: ENOXAPARIN 40MG/0.4ML SYR SUBCUT SCH (08:36)
[2019-08-20] MEDS: ZINC SULFATE 220 MG ( 50 ) CAPSULE PO SCH (08:41)
[2019-08-20] MEDS: THIAMINE HCL 100MG TABLET PO SCH ×2 (08:41→18:03)
[2019-08-20] MEDS: MULTIVITAMINS,THER W-MINERALS TABLET PO SCH (08:42)
[2019-08-20] MEDS: CALCIUM CARBONATE 500MG TABLET CHEW PO SCH ×2 (12:40→18:02)
[2019-08-20] MEDS: QUETIAPINE FUMARATE 25MG TABLET PO SCH ×2 (12:41→20:54)
[2019-08-21] VITALS (96 sets, daily range): BP systolic 78–147; BP diastolic 33–98
[2019-08-21] MEDS: ACETAMINOPHEN 650MG/20.3ML UDC NG PRN (02:23)
[2019-08-21] MEDS: FENTANYL CITRATE/PF 2,500 MCG in SODIUM CHLORIDE 0.9% 200 ML IV PRN ×4 (02:24→18:30)
[2019-08-21] MEDS: MIDAZOLAM HCL 100 MG in DEXT 5% WATER 80 ML IV PRN ×3 (02:24→23:26)
[2019-08-21] MEDS ORDERED: DILTIAZEM HCL 5MG/ML 5ML VIAL IV NR (03:30)
[2019-08-21] MEDS: PROPOFOL 10MG/ML 100ML 100 ML IV PRN ×4 (04:55→21:53)
[2019-08-21 05:46] LABS: HEMATOCRIT. 26.5 % (42.0-52.0); HEMOGLOBIN. 8.6 g/dL (14.0-18.0); MEAN CORPUSCULAR HEMOGLOBIN 30.1 pg (28.0-32.0); MEAN PLATELET VOLUME 7.7 fl (7.4-10.4); PLATELET 436 x1000/uL (130-400); RED BLOOD CELL COUNT 2.85 mill/uL (4.7-6.1); RED CELL DISTRIBUTION WIDTH 14.8 % (11.6-14.6)
[2019-08-21 05:59] LABS: CHLORIDE 97 mEq/L (98-107)
[2019-08-21] MEDS: CALCIUM CARBONATE 500MG TABLET CHEW PO SCH ×3 (06:28→18:00)
[2019-08-21] MEDS: DILTIAZEM HCL 125 MG in DEXT 5% WATER 100 ML IV PRN (06:29)
[2019-08-21 08:12] LABS: PLATELET ESTIMATE INCREASED
[2019-08-21 08:42] LABS: BG BASE EXCESS 14.2 mmol/L (-2.0-2.0); BG CARBOXYHEMOGLOBIN 0.4 % (0.5-1.5); BG DEOXYHEMOGLOBIN 1.9 % (0.0-5.0); BG FRACTION INSPIRED OXYGEN 100; BG HCO3 ACT 40.5 mmol/L (22.0-26.0); BG METHEMOGLOBIN 0.3 % (0.0-1.5); BG OXYGEN SATURATION 98.1 % (92.0-98.5); BG OXYHEMOGLOBIN 97.4 % (94.0-97.0); BG PCO2 64.6 mmHg (35.0-45.0); BG PH 7.415 (7.350-7.450); BG PO2 117.4 mmHg (75.0-100.0); BG SAMPLE SITE RIGHT RADIAL; BG TIDAL VOLUME(mL) 400 mL; BG VENT MODE VENT - PCV; BG VENT RATE 30 set
[2019-08-21] MEDS: DOCUSATE SODIUM SUGAR FREE 100MG/10ML UDC NG SCH ×2 (08:46→17:00)
[2019-08-21] MEDS: METHYLPREDNISOLONE SOD SUCC 40 MG/ML VIAL IV SCH (08:46)
[2019-08-21] MEDS: PANTOPRAZOLE SODIUM 40 MG/VIAL IV SCH (08:46)
[2019-08-21] MEDS: THIAMINE HCL 100MG TABLET PO SCH ×2 (08:46→18:00)
[2019-08-21] MEDS: ASCORBIC ACID 500 MG TABLET PO SCH ×2 (08:46→18:00)
[2019-08-21] MEDS: MULTIVITAMINS,THER W-MINERALS TABLET PO SCH (08:46)
[2019-08-21] MEDS: ZINC SULFATE 220 MG ( 50 ) CAPSULE PO SCH (08:47)
[2019-08-21] MEDS: QUETIAPINE FUMARATE 25MG TABLET PO SCH ×2 (08:47→22:49)
[2019-08-21] MEDS: ENOXAPARIN 40MG/0.4ML SYR SUBCUT SCH (08:48)
[2019-08-21] MEDS: MIDODRINE HCL 5MG TABLET PO SCH ×2 (08:58→18:00)
[2019-08-21] MEDS: METOPROLOL TARTRATE 25MG TABLET PO SCH ×2 (11:30→21:00)
[2019-08-21] MEDS ORDERED: ALTEPLASE 2MG/VIAL ITC SCH (13:15)
[2019-08-21] MEDS ORDERED: LACTULOSE 20G/30ML UDC PO PRN (18:15)
[2019-08-21] MEDS ORDERED: LACTULOSE 20G/30ML UDC PO NR (18:15)
[2019-08-22] VITALS (95 sets, daily range): BP systolic 79–132; BP diastolic 19–83
[2019-08-22] MEDS: PROPOFOL 10MG/ML 100ML 100 ML IV PRN ×5 (02:25→19:20)
[2019-08-22] MEDS: FENTANYL CITRATE/PF 2,500 MCG in SODIUM CHLORIDE 0.9% 200 ML IV PRN ×3 (02:26→17:53)
[2019-08-22 06:37] LABS: BASOPHILS % 0.7 % (0.0-2.0); EOSINOPHILS % 2.9 % (0.0-5.0); HEMATOCRIT. 24.2 % (42.0-52.0); HEMOGLOBIN. 7.7 g/dL (14.0-18.0); LYMPHOCYTES % 7.1 % (20.0-50.0); MEAN CORPUSCULAR VOLUME 93.6 fL (80.0-94.0); MEAN PLATELET VOLUME 7.9 fl (7.4-10.4); MONOCYTES % 2.9 % (2.0-8.0); NEUTROPHILS % 86.4 % (40.0-76.0); PLATELET 384 x1000/uL (130-400); RED BLOOD CELL COUNT 2.59 mill/uL (4.7-6.1); RED CELL DISTRIBUTION WIDTH 15.4 % (11.6-14.6)
[2019-08-22 06:43] LABS: CHLORIDE 98 mEq/L (98-107)
[2019-08-22] MEDS: CALCIUM CARBONATE 500MG TABLET CHEW PO SCH ×3 (07:11→18:00)
[2019-08-22 08:16] LABS: BG BASE EXCESS 13.9 mmol/L (-2.0-2.0); BG CARBOXYHEMOGLOBIN 0.8 % (0.5-1.5); BG DEOXYHEMOGLOBIN 3.5 % (0.0-5.0); BG HCO3 ACT 41.7 mmol/L (22.0-26.0); BG METHEMOGLOBIN 0.4 % (0.0-1.5); BG OXYGEN SATURATION 96.5 % (92.0-98.5); BG OXYHEMOGLOBIN 95.3 % (94.0-97.0); BG PCO2 79.1 mmHg (35.0-45.0); BG PO2 88.2 mmHg (75.0-100.0); BG SAMPLE SITE RIGHT RADIAL; BG TIDAL VOLUME(mL) 400 mL; BG TOTAL HEMOGLOBIN 8.2 g/dL (12.0-18.0); BG VENT MODE VENT - A/C; BG VENT RATE 30 set
[2019-08-22] MEDS: LORAZEPAM 2MG/ML CPJ IV PRN ×2 (08:47→18:00)
[2019-08-22] MEDS: ACETAMINOPHEN 650MG/20.3ML UDC NG PRN ×2 (09:14→15:13)
[2019-08-22] MEDS: MULTIVITAMINS,THER W-MINERALS TABLET PO SCH (09:15)
[2019-08-22] MEDS: PANTOPRAZOLE SODIUM 40 MG/VIAL IV SCH (09:15)
[2019-08-22] MEDS: METHYLPREDNISOLONE SOD SUCC 40 MG/ML VIAL IV SCH (09:15)
[2019-08-22] MEDS: METOPROLOL TARTRATE 25MG TABLET PO SCH ×2 (09:15→20:15)
[2019-08-22] MEDS: THIAMINE HCL 100MG TABLET PO SCH ×2 (09:15→18:00)
[2019-08-22] MEDS: ZINC SULFATE 220 MG ( 50 ) CAPSULE PO SCH (09:16)
[2019-08-22] MEDS: ASCORBIC ACID 500 MG TABLET PO SCH ×2 (09:16→18:00)
[2019-08-22] MEDS: QUETIAPINE FUMARATE 25MG TABLET PO SCH ×2 (09:16→20:15)
[2019-08-22] MEDS: ENOXAPARIN 40MG/0.4ML SYR SUBCUT SCH (09:16)
[2019-08-22] MEDS: MIDODRINE HCL 5MG TABLET PO SCH ×3 (09:16→18:00)
[2019-08-22] MEDS: MIDAZOLAM HCL 100 MG in DEXT 5% WATER 80 ML IV PRN ×2 (09:56→20:34)
[2019-08-22] MEDS: DOCUSATE SODIUM SUGAR FREE 100MG/10ML UDC NG SCH ×2 (11:04→17:59)
[2019-08-23] VITALS (92 sets, daily range): BP systolic 93–155; BP diastolic 27–112
[2019-08-23] MEDS: FENTANYL CITRATE/PF 2,500 MCG in SODIUM CHLORIDE 0.9% 200 ML IV PRN ×3 (02:37→17:44)
[2019-08-23] MEDS: PROPOFOL 10MG/ML 100ML 100 ML IV PRN ×5 (03:15→20:40)
[2019-08-23 05:46] LABS: BASOPHILS % 0.5 % (0.0-2.0); EOSINOPHILS % 1.6 % (0.0-5.0); HEMATOCRIT. 21.9 % (42.0-52.0); HEMOGLOBIN. 7.3 g/dL (14.0-18.0); LYMPHOCYTES % 7.9 % (20.0-50.0); MEAN CORPUSCULAR HEMOGLOBIN 30.9 pg (28.0-32.0); MEAN CORPUSCULAR VOLUME 92.3 fL (80.0-94.0); MEAN PLATELET VOLUME 7.5 fl (7.4-10.4); MONOCYTES % 3.6 % (2.0-8.0); NEUTROPHILS % 86.4 % (40.0-76.0); PLATELET 390 x1000/uL (130-400); RED BLOOD CELL COUNT 2.37 mill/uL (4.7-6.1)
[2019-08-23 05:57] LABS: CHLORIDE 96 mEq/L (98-107)
[2019-08-23] MEDS: MIDAZOLAM HCL 100 MG in DEXT 5% WATER 80 ML IV PRN ×2 (07:00→17:44)
[2019-08-23] MEDS: CALCIUM CARBONATE 500MG TABLET CHEW PO SCH ×3 (07:03→16:51)
[2019-08-23 07:38] LABS: BG BASE EXCESS 13.4 mmol/L (-2.0-2.0); BG CARBOXYHEMOGLOBIN 0.4 % (0.5-1.5); BG DEOXYHEMOGLOBIN 4.1 % (0.0-5.0); BG HCO3 ACT 40.4 mmol/L (22.0-26.0); BG METHEMOGLOBIN 0.2 % (0.0-1.5); BG OXYGEN SATURATION 95.9 % (92.0-98.5); BG OXYHEMOGLOBIN 95.3 % (94.0-97.0); BG PH 7.385 (7.350-7.450); BG PO2 81.3 mmHg (75.0-100.0); BG SAMPLE SITE RIGHT RADIAL; BG TIDAL VOLUME(mL) 400 mL; BG TOTAL HEMOGLOBIN 8.9 g/dL (12.0-18.0); BG VENT MODE VENT - A/C; BG VENT RATE 30 set
[2019-08-23] MEDS: ZINC SULFATE 220 MG ( 50 ) CAPSULE PO SCH (08:14)
[2019-08-23] MEDS: ENOXAPARIN 40MG/0.4ML SYR SUBCUT SCH (08:14)
[2019-08-23] MEDS: ACETAMINOPHEN 650MG/20.3ML UDC NG PRN ×2 (08:15→20:39)
[2019-08-23] MEDS: ASCORBIC ACID 500 MG TABLET PO SCH ×2 (08:15→16:50)
[2019-08-23] MEDS: THIAMINE HCL 100MG TABLET PO SCH ×2 (08:15→16:51)
[2019-08-23] MEDS: METHYLPREDNISOLONE SOD SUCC 40 MG/ML VIAL IV SCH (08:16)
[2019-08-23] MEDS: PANTOPRAZOLE SODIUM 40 MG/VIAL IV SCH (08:16)
[2019-08-23] MEDS: MIDODRINE HCL 5MG TABLET PO SCH ×3 (08:16→16:51)
[2019-08-23] MEDS: DOCUSATE SODIUM SUGAR FREE 100MG/10ML UDC NG SCH ×2 (08:16→16:50)
[2019-08-23] MEDS: METOPROLOL TARTRATE 25MG TABLET PO SCH ×2 (08:18→21:25)
[2019-08-23] MEDS: MULTIVITAMINS,THER W-MINERALS TABLET PO SCH (08:19)
[2019-08-23] MEDS: QUETIAPINE FUMARATE 25MG TABLET PO SCH ×2 (08:19→21:25)
[2019-08-23] MEDS: LORAZEPAM 2MG/ML CPJ IV PRN (21:57)
[2019-08-24] VITALS (96 sets, daily range): BP systolic 68–164; BP diastolic 21–97
[2019-08-24] MEDS: PROPOFOL 10MG/ML 100ML 100 ML IV PRN ×5 (00:33→17:24)
[2019-08-24] MEDS: FENTANYL CITRATE/PF 2,500 MCG in SODIUM CHLORIDE 0.9% 200 ML IV PRN ×3 (01:32→17:06)
[2019-08-24] MEDS: MIDAZOLAM HCL 100 MG in DEXT 5% WATER 80 ML IV PRN ×3 (04:31→21:31)
[2019-08-24 05:53] LABS: BASOPHILS % 0.7 % (0.0-2.0); EOSINOPHILS % 1.5 % (0.0-5.0); HEMOGLOBIN. 8.3 g/dL (14.0-18.0); LYMPHOCYTES % 7.7 % (20.0-50.0); MEAN CORPUSCULAR HEMOGLOBIN 29.9 pg (28.0-32.0); MEAN CORPUSCULAR VOLUME 93.6 fL (80.0-94.0); MEAN PLATELET VOLUME 7.6 fl (7.4-10.4); MONOCYTES % 5.6 % (2.0-8.0); NEUTROPHILS % 84.5 % (40.0-76.0); PLATELET 459 x1000/uL (130-400); RED BLOOD CELL COUNT 2.78 mill/uL (4.7-6.1); RED CELL DISTRIBUTION WIDTH 15.8 % (11.6-14.6)
[2019-08-24] MEDS: DILTIAZEM HCL 125 MG in DEXT 5% WATER 100 ML IV PRN (06:06)
[2019-08-24 06:39] LABS: CHLORIDE 96 mEq/L (98-107)
[2019-08-24] MEDS: CALCIUM CARBONATE 500MG TABLET CHEW PO SCH ×3 (07:00→16:46)
[2019-08-24 08:38] LABS: BG BASE EXCESS 13.6 mmol/L (-2.0-2.0); BG CARBOXYHEMOGLOBIN 0.5 % (0.5-1.5); BG DEOXYHEMOGLOBIN 19.7 % (0.0-5.0); BG FRACTION INSPIRED OXYGEN 100; BG HCO3 ACT 43.4 mmol/L (22.0-26.0); BG METHEMOGLOBIN 0.3 % (0.0-1.5); BG OXYGEN SATURATION 80.1 % (92.0-98.5); BG OXYHEMOGLOBIN 79.5 % (94.0-97.0); BG PCO2 98.6 mmHg (35.0-45.0); BG PH 7.261 (7.350-7.450); BG PO2 50.7 mmHg (75.0-100.0); BG SAMPLE SITE RIGHT RADIAL; BG TIDAL VOLUME(mL) 400 mL; BG TOTAL HEMOGLOBIN 9.3 g/dL (12.0-18.0); BG VENT MODE VENT - PCV; BG VENT RATE 30 set
[2019-08-24] MEDS ORDERED: SODIUM BICARBONATE 8.4% 1 MEQ/ML 50ML SYR IV SCH (09:00)
[2019-08-24] MEDS: ENOXAPARIN 40MG/0.4ML SYR SUBCUT SCH (09:00)
[2019-08-24] MEDS ORDERED: SODIUM BICARBONATE 4% (2.4MEQ) 5ML VIAL IV ONE ×2 (09:20→13:54)
[2019-08-24] MEDS: DOCUSATE SODIUM SUGAR FREE 100MG/10ML UDC NG SCH ×2 (09:20→16:46)
[2019-08-24] MEDS: METHYLPREDNISOLONE SOD SUCC 40 MG/ML VIAL IV SCH (09:20)
[2019-08-24] MEDS: PANTOPRAZOLE SODIUM 40 MG/VIAL IV SCH (09:20)
[2019-08-24] MEDS ORDERED: LIDOCAINE HCL 1% 20ML VIAL (Pyxis) INJ ONE ×2 (09:21→13:55)
[2019-08-24] MEDS: MULTIVITAMINS,THER W-MINERALS TABLET PO SCH (09:24)
[2019-08-24] MEDS: ASCORBIC ACID 500 MG TABLET PO SCH ×2 (09:24→16:46)
[2019-08-24] MEDS: THIAMINE HCL 100MG TABLET PO SCH ×2 (09:25→16:46)
[2019-08-24] MEDS: QUETIAPINE FUMARATE 25MG TABLET PO SCH ×2 (09:26→20:30)
[2019-08-24] MEDS: ACETAMINOPHEN 650MG/20.3ML UDC NG PRN ×2 (10:20→17:30)
[2019-08-24] MEDS: MIDODRINE HCL 5MG TABLET PO SCH ×3 (11:49→17:27)
[2019-08-24] MEDS: METOPROLOL TARTRATE 25MG TABLET PO SCH ×2 (11:49→20:29)
[2019-08-24] MEDS: LACTULOSE 20G/30ML UDC PO PRN (11:49)
[2019-08-24 13:54] LABS: BG BASE EXCESS 19.1 mmol/L (-2.0-2.0); BG CARBOXYHEMOGLOBIN 0.8 % (0.5-1.5); BG DEOXYHEMOGLOBIN 10.5 % (0.0-5.0); BG FRACTION INSPIRED OXYGEN 100; BG HCO3 ACT 48.5 mmol/L (22.0-26.0); BG METHEMOGLOBIN 0.2 % (0.0-1.5); BG OXYGEN SATURATION 89.4 % (92.0-98.5); BG OXYHEMOGLOBIN 88.5 % (94.0-97.0); BG PCO2 95.9 mmHg (35.0-45.0); BG PH 7.322 (7.350-7.450); BG PO2 61.4 mmHg (75.0-100.0); BG SAMPLE SITE RIGHT RADIAL; BG TIDAL VOLUME(mL) 400 mL; BG TOTAL HEMOGLOBIN 9.5 g/dL (12.0-18.0); BG VENT MODE PRVC; BG VENT RATE 30 set
[2019-08-25] VITALS (94 sets, daily range): BP systolic 92–158; BP diastolic 46–97
[2019-08-25] MEDS: PROPOFOL 10MG/ML 100ML 100 ML IV PRN ×6 (04:55→23:30)
[2019-08-25 05:57] LABS: BASOPHILS % 0.6 % (0.0-2.0); EOSINOPHILS % 1.4 % (0.0-5.0); HEMATOCRIT. 22.6 % (42.0-52.0); HEMOGLOBIN. 7.5 g/dL (14.0-18.0); LYMPHOCYTES % 7.9 % (20.0-50.0); MEAN CORPUSCULAR HEMOGLOBIN 30.7 pg (28.0-32.0); MEAN CORPUSCULAR VOLUME 92.9 fL (80.0-94.0); MEAN PLATELET VOLUME 7.5 fl (7.4-10.4); MONOCYTES % 5.7 % (2.0-8.0); NEUTROPHILS % 84.4 % (40.0-76.0); PLATELET 390 x1000/uL (130-400); RED BLOOD CELL COUNT 2.43 mill/uL (4.7-6.1); RED CELL DISTRIBUTION WIDTH 15.5 % (11.6-14.6)
[2019-08-25 06:01] LABS: CHLORIDE 96 mEq/L (98-107)
[2019-08-25 06:20] LABS: FERRITIN 638 ng/mL (22-322)
[2019-08-25 06:31] LABS: HEPATITIS B SURFACE ANTIGEN NEGATIVE
[2019-08-25] MEDS: ACETAMINOPHEN 650MG/20.3ML UDC NG PRN (06:49)
[2019-08-25 07:01] LABS: HEPATITIS A AB IGM NEGATIVE (NEGATIVE)
[2019-08-25] MEDS: CALCIUM CARBONATE 500MG TABLET CHEW PO SCH ×3 (07:06→16:03)
[2019-08-25] MEDS: FENTANYL CITRATE/PF 2,500 MCG in SODIUM CHLORIDE 0.9% 200 ML IV PRN ×3 (07:53→21:58)
[2019-08-25 08:22] LABS: BG DEOXYHEMOGLOBIN 6.7 % (0.0-5.0); BG FRACTION INSPIRED OXYGEN 100; BG HCO3 ACT 45.6 mmol/L (22.0-26.0); BG METHEMOGLOBIN 0.3 % (0.0-1.5); BG OXYGEN SATURATION 93.2 % (92.0-98.5); BG PCO2 71.1 mmHg (35.0-45.0); BG PH 7.425 (7.350-7.450); BG PO2 66.5 mmHg (75.0-100.0); BG SAMPLE SITE RIGHT RADIAL; BG TIDAL VOLUME(mL) 450 mL; BG TOTAL HEMOGLOBIN 7.8 g/dL (12.0-18.0); BG VENT MODE VENT - PCV; BG VENT RATE 30 set
[2019-08-25] MEDS: MIDODRINE HCL 5MG TABLET PO SCH ×3 (09:00→16:03)
[2019-08-25] MEDS: METHYLPREDNISOLONE SOD SUCC 40 MG/ML VIAL IV SCH (09:34)
[2019-08-25] MEDS: DOCUSATE SODIUM SUGAR FREE 100MG/10ML UDC NG SCH ×2 (09:34→16:04)
[2019-08-25] MEDS: MULTIVITAMINS,THER W-MINERALS TABLET PO SCH (09:34)
[2019-08-25] MEDS: PANTOPRAZOLE SODIUM 40 MG/VIAL IV SCH (09:34)
[2019-08-25] MEDS: THIAMINE HCL 100MG TABLET PO SCH ×2 (09:34→16:04)
[2019-08-25] MEDS: QUETIAPINE FUMARATE 25MG TABLET PO SCH ×2 (09:35→21:57)
[2019-08-25] MEDS: METOPROLOL TARTRATE 25MG TABLET PO SCH ×2 (09:35→21:00)
[2019-08-25] MEDS: ASCORBIC ACID 500 MG TABLET PO SCH ×2 (09:36→16:04)
[2019-08-25] MEDS: ENOXAPARIN 40MG/0.4ML SYR SUBCUT SCH (09:36)
[2019-08-25] MEDS: MIDAZOLAM HCL 100 MG in DEXT 5% WATER 80 ML IV PRN ×2 (09:50→16:57)
[2019-08-25] MEDS: LINEZOLID 600 MG PREMIX 300 ML IV SCH ×2 (13:46→23:10)
[2019-08-25] MEDS: PIPERACILLIN/TAZOBACTAM 3.375 G in DEXT 5% WATER 100 ML IV SCH ×2 (15:59→21:57)
[2019-08-25] MEDS ORDERED: ALBUTEROL 6.7GM HFA INHALER ORI SCH (16:00)
[2019-08-25] MEDS: LACTULOSE 20G/30ML UDC PO PRN (16:05)
[2019-08-26] VITALS (70 sets, daily range): BP systolic 93–156; BP diastolic 49–94
[2019-08-26] MEDS: MIDAZOLAM HCL 100 MG in DEXT 5% WATER 80 ML IV PRN ×4 (00:37→23:41)
[2019-08-26] MEDS: PIPERACILLIN/TAZOBACTAM 3.375 G in DEXT 5% WATER 100 ML IV SCH ×4 (03:40→21:50)
[2019-08-26] MEDS: PROPOFOL 10MG/ML 100ML 100 ML IV PRN ×6 (03:53→20:58)
[2019-08-26] MEDS: FENTANYL CITRATE/PF 2,500 MCG in SODIUM CHLORIDE 0.9% 200 ML IV PRN ×3 (05:34→20:57)
[2019-08-26 06:06] LABS: BASOPHILS % 0.4 % (0.0-2.0); EOSINOPHILS % 3.2 % (0.0-5.0); HEMATOCRIT. 22.7 % (42.0-52.0); HEMOGLOBIN. 7.4 g/dL (14.0-18.0); LYMPHOCYTES % 7.6 % (20.0-50.0); MEAN CORPUSCULAR HEMOGLOBIN 30.3 pg (28.0-32.0); MEAN CORPUSCULAR VOLUME 92.9 fL (80.0-94.0); MEAN PLATELET VOLUME 7.4 fl (7.4-10.4); MONOCYTES % 3.1 % (2.0-8.0); NEUTROPHILS % 85.7 % (40.0-76.0); PLATELET 407 x1000/uL (130-400); RED BLOOD CELL COUNT 2.44 mill/uL (4.7-6.1)
[2019-08-26] MEDS: CALCIUM CARBONATE 500MG TABLET CHEW PO SCH ×3 (06:28→17:33)
[2019-08-26 06:34] LABS: CHLORIDE 95 mEq/L (98-107)
[2019-08-26] MEDS ORDERED: PROPOFOL 10MG/ML 100ML 100 ML IV PRN (08:45)
[2019-08-26 08:52] LABS: BG BASE EXCESS 13.8 mmol/L (-2.0-2.0); BG CARBOXYHEMOGLOBIN 0.7 % (0.5-1.5); BG DEOXYHEMOGLOBIN 2.4 % (0.0-5.0); BG FRACTION INSPIRED OXYGEN 100; BG HCO3 ACT 40.6 mmol/L (22.0-26.0); BG METHEMOGLOBIN 0.3 % (0.0-1.5); BG OXYGEN SATURATION 97.6 % (92.0-98.5); BG OXYHEMOGLOBIN 96.6 % (94.0-97.0); BG PH 7.394 (7.350-7.450); BG PO2 106.5 mmHg (75.0-100.0); BG SAMPLE SITE RIGHT RADIAL; BG TIDAL VOLUME(mL) 450 mL; BG TOTAL HEMOGLOBIN 8.4 g/dL (12.0-18.0); BG VENT MODE VENT - PCV; BG VENT RATE 30 set
[2019-08-26] MEDS: MIDODRINE HCL 5MG TABLET PO SCH ×3 (09:00→17:34)
[2019-08-26] MEDS: MULTIVITAMINS,THER W-MINERALS TABLET PO SCH (09:00)
[2019-08-26] MEDS: DOCUSATE SODIUM SUGAR FREE 100MG/10ML UDC NG SCH ×2 (10:41→17:34)
[2019-08-26] MEDS: METHYLPREDNISOLONE SOD SUCC 40 MG/ML VIAL IV SCH (10:41)
[2019-08-26] MEDS: LINEZOLID 600 MG PREMIX 300 ML IV SCH ×2 (10:41→21:49)
[2019-08-26] MEDS: PANTOPRAZOLE SODIUM 40 MG/VIAL IV SCH (10:41)
[2019-08-26] MEDS: THIAMINE HCL 100MG TABLET PO SCH ×2 (10:42→17:33)
[2019-08-26] MEDS: QUETIAPINE FUMARATE 25MG TABLET PO SCH ×2 (10:42→21:50)
[2019-08-26] MEDS: ENOXAPARIN 40MG/0.4ML SYR SUBCUT SCH (10:42)
[2019-08-26] MEDS: ASCORBIC ACID 500 MG TABLET PO SCH ×2 (10:43→17:33)
[2019-08-26] MEDS: METOPROLOL TARTRATE 25MG TABLET PO SCH ×2 (10:43→21:00)
[2019-08-26] MEDS: ALBUTEROL (0.083%) 2.5MG/3ML NEB HHN SCH ×5 (10:54→23:54)
[2019-08-26] MEDS ORDERED: POTASSIUM CHLORIDE 20MEQ TABLET SR PO NR (11:00)
[2019-08-26] MEDS ORDERED: POTASSIUM CHLORIDE 20MEQ/PACKET PO NR (11:15)
[2019-08-27] VITALS (95 sets, daily range): BP systolic 91–173; BP diastolic 50–107
[2019-08-27] MEDS: PROPOFOL 10MG/ML 100ML 100 ML IV PRN ×6 (01:42→22:28)
[2019-08-27] MEDS: ALBUTEROL (0.083%) 2.5MG/3ML NEB HHN SCH ×2 (04:41→08:11)
[2019-08-27] MEDS: PIPERACILLIN/TAZOBACTAM 3.375 G in DEXT 5% WATER 100 ML IV SCH ×4 (04:58→21:38)
[2019-08-27] MEDS: FENTANYL CITRATE/PF 2,500 MCG in SODIUM CHLORIDE 0.9% 200 ML IV PRN ×3 (05:01→21:22)
[2019-08-27 05:47] LABS: EOSINOPHILS % 3.7 % (0.0-5.0); HEMATOCRIT. 24.4 % (42.0-52.0); HEMOGLOBIN. 7.8 g/dL (14.0-18.0); LYMPHOCYTES % 8.9 % (20.0-50.0); MEAN CORPUSCULAR VOLUME 94.1 fL (80.0-94.0); MEAN PLATELET VOLUME 7.4 fl (7.4-10.4); MONOCYTES % 3.5 % (2.0-8.0); NEUTROPHILS % 82.9 % (40.0-76.0); PLATELET 449 x1000/uL (130-400); RED BLOOD CELL COUNT 2.59 mill/uL (4.7-6.1); RED CELL DISTRIBUTION WIDTH 16.4 % (11.6-14.6)
[2019-08-27 06:01] LABS: CHLORIDE 94 mEq/L (98-107)
[2019-08-27] MEDS: CALCIUM CARBONATE 500MG TABLET CHEW PO SCH ×3 (06:32→17:00)
[2019-08-27] MEDS: MIDAZOLAM HCL 100 MG in DEXT 5% WATER 80 ML IV PRN ×2 (08:15→15:47)
[2019-08-27] MEDS: ACETAMINOPHEN 650MG/20.3ML UDC NG PRN ×2 (08:30→17:14)
[2019-08-27 08:40] LABS: BG BASE EXCESS 19.2 mmol/L (-2.0-2.0); BG CARBOXYHEMOGLOBIN 0.7 % (0.5-1.5); BG DEOXYHEMOGLOBIN 3.7 % (0.0-5.0); BG FRACTION INSPIRED OXYGEN 100; BG HCO3 ACT 46.9 mmol/L (22.0-26.0); BG METHEMOGLOBIN 0.3 % (0.0-1.5); BG OXYGEN SATURATION 96.3 % (92.0-98.5); BG OXYHEMOGLOBIN 95.3 % (94.0-97.0); BG PCO2 79.6 mmHg (35.0-45.0); BG PH 7.388 (7.350-7.450); BG PO2 87.2 mmHg (75.0-100.0); BG SAMPLE SITE RIGHT RADIAL; BG TIDAL VOLUME(mL) 450 mL; BG TOTAL HEMOGLOBIN 8.8 g/dL (12.0-18.0); BG VENT MODE VENT - PCV; BG VENT RATE 30 set
[2019-08-27] MEDS: LINEZOLID 600 MG PREMIX 300 ML IV SCH ×2 (08:49→21:41)
[2019-08-27] MEDS: MULTIVITAMINS,THER W-MINERALS TABLET PO SCH ×2 (08:50→08:52)
[2019-08-27] MEDS: PANTOPRAZOLE SODIUM 40 MG/VIAL IV SCH (08:50)
[2019-08-27] MEDS: DOCUSATE SODIUM SUGAR FREE 100MG/10ML UDC NG SCH ×2 (08:50→17:13)
[2019-08-27] MEDS: METHYLPREDNISOLONE SOD SUCC 40 MG/ML VIAL IV SCH (08:50)
[2019-08-27] MEDS: QUETIAPINE FUMARATE 25MG TABLET PO SCH ×2 (08:50→21:37)
[2019-08-27] MEDS: MIDODRINE HCL 5MG TABLET PO SCH ×3 (08:51→17:02)
[2019-08-27] MEDS: ASCORBIC ACID 500 MG TABLET PO SCH ×2 (08:51→17:02)
[2019-08-27] MEDS: METOPROLOL TARTRATE 25MG TABLET PO SCH ×2 (08:51→21:37)
[2019-08-27] MEDS: THIAMINE HCL 100MG TABLET PO SCH ×2 (08:52→17:13)
[2019-08-27] MEDS: ACETYLCYSTEINE 100MG/ML 10% VIAL 4ML INH SCH (12:06)
[2019-08-27] MEDS: IPRATROPIUM BROMIDE (0.02%) 0.5MG/2.5ML NEB HHN SCH ×3 (12:06→20:34)
[2019-08-27 12:54] LABS: BG BASE EXCESS 16.1 mmol/L (-2.0-2.0); BG CARBOXYHEMOGLOBIN 0.6 % (0.5-1.5); BG DEOXYHEMOGLOBIN 1.9 % (0.0-5.0); BG FRACTION INSPIRED OXYGEN 100; BG HCO3 ACT 43.9 mmol/L (22.0-26.0); BG METHEMOGLOBIN 0.5 % (0.0-1.5); BG OXYGEN SATURATION 98.1 % (92.0-98.5); BG PCO2 79.7 mmHg (35.0-45.0); BG PH 7.359 (7.350-7.450); BG PO2 117.9 mmHg (75.0-100.0); BG SAMPLE SITE RIGHT RADIAL; BG TIDAL VOLUME(mL) 450 mL; BG TOTAL HEMOGLOBIN 8.5 g/dL (12.0-18.0); BG VENT MODE VENT - PCV; BG VENT RATE 30 set
[2019-08-28] VITALS (96 sets, daily range): BP systolic 89–161; BP diastolic 43–109
[2019-08-28] MEDS: ACETYLCYSTEINE 100MG/ML 10% VIAL 4ML INH SCH ×4 (00:10→15:45)
[2019-08-28] MEDS: IPRATROPIUM BROMIDE (0.02%) 0.5MG/2.5ML NEB HHN SCH ×5 (00:10→16:14)
[2019-08-28] MEDS: PROPOFOL 10MG/ML 100ML 100 ML IV PRN ×6 (01:56→19:30)
[2019-08-28] MEDS: PIPERACILLIN/TAZOBACTAM 3.375 G in DEXT 5% WATER 100 ML IV SCH ×4 (04:16→22:00)
[2019-08-28] MEDS: FENTANYL CITRATE/PF 2,500 MCG in SODIUM CHLORIDE 0.9% 200 ML IV PRN ×3 (04:17→18:18)
[2019-08-28] MEDS: MIDAZOLAM HCL 100 MG in DEXT 5% WATER 80 ML IV PRN ×2 (04:19→20:47)
[2019-08-28] MEDS: CALCIUM CARBONATE 500MG TABLET CHEW PO SCH ×3 (07:00→18:00)
[2019-08-28] MEDS: QUETIAPINE FUMARATE 25MG TABLET PO SCH ×2 (09:00→20:36)
[2019-08-28] MEDS: MULTIVITAMINS,THER W-MINERALS TABLET PO SCH (09:00)
[2019-08-28 09:53] LABS: BG BASE EXCESS 19.7 mmol/L (-2.0-2.0); BG CARBOXYHEMOGLOBIN 0.4 % (0.5-1.5); BG DEOXYHEMOGLOBIN 1.1 % (0.0-5.0); BG FRACTION INSPIRED OXYGEN 100; BG HCO3 ACT 46.3 mmol/L (22.0-26.0); BG METHEMOGLOBIN 0.6 % (0.0-1.5); BG OXYGEN SATURATION 98.9 % (92.0-98.5); BG OXYHEMOGLOBIN 97.9 % (94.0-97.0); BG PCO2 68.6 mmHg (35.0-45.0); BG PH 7.447 (7.350-7.450); BG PO2 147.1 mmHg (75.0-100.0); BG SAMPLE SITE RIGHT RADIAL; BG TIDAL VOLUME(mL) 450 mL; BG TOTAL HEMOGLOBIN 8.7 g/dL (12.0-18.0); BG VENT MODE VENT - PCV; BG VENT RATE 30 set
[2019-08-28] MEDS: ASCORBIC ACID 500 MG TABLET PO SCH ×2 (10:00→18:00)
[2019-08-28] MEDS: LINEZOLID 600 MG PREMIX 300 ML IV SCH ×2 (10:00→20:36)
[2019-08-28] MEDS: PANTOPRAZOLE SODIUM 40 MG/VIAL IV SCH (10:00)
[2019-08-28] MEDS: METOPROLOL TARTRATE 25MG TABLET PO SCH ×2 (10:00→20:38)
[2019-08-28] MEDS: METHYLPREDNISOLONE SOD SUCC 40 MG/ML VIAL IV SCH (10:00)
[2019-08-28] MEDS: ENOXAPARIN 40MG/0.4ML SYR SUBCUT SCH (11:00)
[2019-08-28] MEDS: MIDODRINE HCL 5MG TABLET PO SCH ×3 (11:00→18:00)
[2019-08-28] MEDS ORDERED: LACTULOSE 20G/30ML UDC PO NR (11:15)
[2019-08-28] MEDS: DOCUSATE SODIUM SUGAR FREE 100MG/10ML UDC NG SCH ×2 (11:35→18:00)
[2019-08-28 11:59] LABS: HEMATOCRIT. 24.1 % (42.0-52.0); HEMOGLOBIN. 7.6 g/dL (14.0-18.0); MEAN CORPUSCULAR HEMOGLOBIN 30.3 pg (28.0-32.0); MEAN CORPUSCULAR VOLUME 95.3 fL (80.0-94.0); MEAN PLATELET VOLUME 7.5 fl (7.4-10.4); PLATELET 461 x1000/uL (130-400); RED BLOOD CELL COUNT 2.52 mill/uL (4.7-6.1); RED CELL DISTRIBUTION WIDTH 17.3 % (11.6-14.6)
[2019-08-28 12:04] LABS: CHLORIDE 93 mEq/L (98-107)
[2019-08-28 12:29] LABS: PLATELET ESTIMATE INCREASED
[2019-08-29] VITALS (98 sets, daily range): BP systolic 82–166; BP diastolic 40–105
[2019-08-29] MEDS: PROPOFOL 10MG/ML 100ML 100 ML IV PRN ×6 (00:08→21:52)
[2019-08-29] MEDS: PIPERACILLIN/TAZOBACTAM 3.375 G in DEXT 5% WATER 100 ML IV SCH ×5 (00:29→21:51)
[2019-08-29] MEDS: IPRATROPIUM BROMIDE (0.02%) 0.5MG/2.5ML NEB HHN SCH ×3 (01:06→20:15)
[2019-08-29] MEDS: ACETYLCYSTEINE 100MG/ML 10% VIAL 4ML INH SCH ×2 (01:08)
[2019-08-29] MEDS: FENTANYL CITRATE/PF 2,500 MCG in SODIUM CHLORIDE 0.9% 200 ML IV PRN ×3 (01:57→18:07)
[2019-08-29 02:13] LABS: HEMATOCRIT 25.3 % (42.0-52.0); HEMOGLOBIN 8.1 g/dL (14.0-18.0)
[2019-08-29 02:21] LABS: INR 1.1; PROTHROMBIN TIME 11.9 sec (9.6-11.0)
[2019-08-29] MEDS: MIDAZOLAM HCL 100 MG in DEXT 5% WATER 80 ML IV PRN ×3 (03:14→18:08)
[2019-08-29 05:40] LABS: BASOPHILS % 0.4 % (0.0-2.0); EOSINOPHILS % 4.6 % (0.0-5.0); HEMATOCRIT. 27.8 % (42.0-52.0); LYMPHOCYTES % 9.3 % (20.0-50.0); MEAN CORPUSCULAR HEMOGLOBIN 29.7 pg (28.0-32.0); MEAN CORPUSCULAR VOLUME 91.8 fL (80.0-94.0); MEAN PLATELET VOLUME 6.9 fl (7.4-10.4); MONOCYTES % 3.8 % (2.0-8.0); NEUTROPHILS % 81.9 % (40.0-76.0); PLATELET 425 x1000/uL (130-400); RED BLOOD CELL COUNT 3.03 mill/uL (4.7-6.1); RED CELL DISTRIBUTION WIDTH 17.2 % (11.6-14.6)
[2019-08-29 05:46] LABS: CHLORIDE 95 mEq/L (98-107)
[2019-08-29] MEDS: CALCIUM CARBONATE 500MG TABLET CHEW PO SCH ×3 (07:00→17:00)
[2019-08-29] MEDS: DOCUSATE SODIUM SUGAR FREE 100MG/10ML UDC NG SCH ×2 (08:25→17:00)
[2019-08-29] MEDS: PANTOPRAZOLE SODIUM 40 MG/VIAL IV SCH (08:25)
[2019-08-29] MEDS: LINEZOLID 600 MG PREMIX 300 ML IV SCH ×2 (08:25→20:44)
[2019-08-29] MEDS: ASCORBIC ACID 500 MG TABLET PO SCH ×2 (08:26→17:00)
[2019-08-29] MEDS: ENOXAPARIN 40MG/0.4ML SYR SUBCUT SCH (08:26)
[2019-08-29] MEDS: METHYLPREDNISOLONE SOD SUCC 40 MG/ML VIAL IV SCH (08:26)
[2019-08-29] MEDS: METOPROLOL TARTRATE 25MG TABLET PO SCH ×2 (08:27→20:45)
[2019-08-29] MEDS: QUETIAPINE FUMARATE 25MG TABLET PO SCH ×2 (08:27→20:43)
[2019-08-29] MEDS: MULTIVITAMINS,THER W-MINERALS TABLET PO SCH (08:27)
[2019-08-29] MEDS: MIDODRINE HCL 5MG TABLET PO SCH ×3 (08:47→17:00)
[2019-08-29 08:50] LABS: BG BASE EXCESS 16.2 mmol/L (-2.0-2.0); BG CARBOXYHEMOGLOBIN 0.8 % (0.5-1.5); BG DEOXYHEMOGLOBIN 4.2 % (0.0-5.0); BG FRACTION INSPIRED OXYGEN 100; BG HCO3 ACT 43.5 mmol/L (22.0-26.0); BG METHEMOGLOBIN 0.1 % (0.0-1.5); BG OXYGEN SATURATION 95.8 % (92.0-98.5); BG OXYHEMOGLOBIN 94.9 % (94.0-97.0); BG PH 7.393 (7.350-7.450); BG PO2 80.6 mmHg (75.0-100.0); BG SAMPLE SITE RIGHT RADIAL; BG TIDAL VOLUME(mL) 450 mL; BG TOTAL HEMOGLOBIN 9.2 g/dL (12.0-18.0); BG VENT MODE PRVC; BG VENT RATE 30 set
[2019-08-29] MEDS: DILTIAZEM HCL 125 MG in DEXT 5% WATER 100 ML IV PRN (09:44)
[2019-08-29] MEDS: ACETAMINOPHEN 650MG/20.3ML UDC NG PRN (09:45)
[2019-08-29] MEDS ORDERED: POTASSIUM CHLORIDE 20MEQ TABLET SR PO NR (11:00)
[2019-08-29 17:41] LABS: BG BASE EXCESS 1.3 mmol/L (-2.0-2.0); BG DEOXYHEMOGLOBIN 8.2 % (0.0-5.0); BG FRACTION INSPIRED OXYGEN 100; BG HCO3 ACT 33.2 mmol/L (22.0-26.0); BG METHEMOGLOBIN 0.3 % (0.0-1.5); BG OXYGEN SATURATION 91.7 % (92.0-98.5); BG OXYHEMOGLOBIN 90.5 % (94.0-97.0); BG PCO2 112.9 mmHg (35.0-45.0); BG PH 7.086 (7.350-7.450); BG PO2 83.2 mmHg (75.0-100.0); BG SAMPLE SITE RIGHT RADIAL; BG TIDAL VOLUME(mL) 450 mL; BG VENT MODE VENT - A/C; BG VENT RATE 30 set
[2019-08-29 18:43] LABS: BG BASE EXCESS 12.4 mmol/L (-2.0-2.0); BG CARBOXYHEMOGLOBIN 1.3 % (0.5-1.5); BG FRACTION INSPIRED OXYGEN 100; BG HCO3 ACT 42.4 mmol/L (22.0-26.0); BG METHEMOGLOBIN 0.3 % (0.0-1.5); BG OXYGEN SATURATION 88.8 % (92.0-98.5); BG OXYHEMOGLOBIN 87.4 % (94.0-97.0); BG PCO2 93.9 mmHg (35.0-45.0); BG PH 7.273 (7.350-7.450); BG PO2 61.7 mmHg (75.0-100.0); BG SAMPLE SITE RIGHT RADIAL; BG TIDAL VOLUME(mL) 450 mL; BG TOTAL HEMOGLOBIN 10.9 g/dL (12.0-18.0); BG VENT MODE VENT - PRVC; BG VENT RATE 30 set
[2019-08-30] VITALS (95 sets, daily range): BP systolic 90–159; BP diastolic 20–98
[2019-08-30] MEDS: FENTANYL CITRATE/PF 2,500 MCG in SODIUM CHLORIDE 0.9% 200 ML IV PRN ×3 (01:35→18:17)
[2019-08-30] MEDS: PROPOFOL 10MG/ML 100ML 100 ML IV PRN ×6 (01:41→22:07)
[2019-08-30] MEDS: PIPERACILLIN/TAZOBACTAM 3.375 G in DEXT 5% WATER 100 ML IV SCH ×4 (03:00→21:17)
[2019-08-30] MEDS: IPRATROPIUM BROMIDE (0.02%) 0.5MG/2.5ML NEB HHN SCH ×5 (03:50→15:45)
[2019-08-30 05:16] LABS: HEMATOCRIT. 22.7 % (42.0-52.0); HEMOGLOBIN. 7.6 g/dL (14.0-18.0); MEAN CORPUSCULAR VOLUME 92.5 fL (80.0-94.0); MEAN PLATELET VOLUME 7.2 fl (7.4-10.4); PLATELET 363 x1000/uL (130-400); RED BLOOD CELL COUNT 2.45 mill/uL (4.7-6.1)
[2019-08-30 05:20] LABS: CHLORIDE 94 mEq/L (98-107)
[2019-08-30] MEDS: MIDAZOLAM HCL 100 MG in DEXT 5% WATER 80 ML IV PRN ×2 (05:45→16:00)
[2019-08-30] MEDS: CALCIUM CARBONATE 500MG TABLET CHEW PO SCH ×3 (06:08→18:15)
[2019-08-30] MEDS: ACETYLCYSTEINE 100MG/ML 10% VIAL 4ML INH SCH ×2 (08:20→15:45)
[2019-08-30] MEDS: ACETAMINOPHEN 650MG/20.3ML UDC NG PRN ×2 (08:56→18:15)
[2019-08-30] MEDS: ASCORBIC ACID 500 MG TABLET PO SCH ×2 (08:57→18:15)
[2019-08-30] MEDS: QUETIAPINE FUMARATE 25MG TABLET PO SCH ×2 (08:57→20:56)
[2019-08-30] MEDS: MULTIVITAMINS,THER W-MINERALS TABLET PO SCH (08:57)
[2019-08-30] MEDS: METHYLPREDNISOLONE SOD SUCC 40 MG/ML VIAL IV SCH (08:57)
[2019-08-30] MEDS: DOCUSATE SODIUM SUGAR FREE 100MG/10ML UDC NG SCH ×2 (08:57→18:14)
[2019-08-30] MEDS: METOPROLOL TARTRATE 25MG TABLET PO SCH ×2 (09:00→20:56)
[2019-08-30] MEDS: LINEZOLID 600 MG PREMIX 300 ML IV SCH ×2 (09:00→20:56)
[2019-08-30] MEDS: MIDODRINE HCL 5MG TABLET PO SCH ×3 (09:00→18:15)
[2019-08-30] MEDS: ENOXAPARIN 40MG/0.4ML SYR SUBCUT SCH (09:01)
[2019-08-30] MEDS: PANTOPRAZOLE SODIUM 40 MG/VIAL IV SCH (09:03)
[2019-08-30 10:12] LABS: BG BASE EXCESS 17.5 mmol/L (-2.0-2.0); BG CARBOXYHEMOGLOBIN 1.4 % (0.5-1.5); BG DEOXYHEMOGLOBIN 1.9 % (0.0-5.0); BG FRACTION INSPIRED OXYGEN 100; BG HCO3 ACT 44.9 mmol/L (22.0-26.0); BG METHEMOGLOBIN 0.3 % (0.0-1.5); BG OXYGEN SATURATION 98.1 % (92.0-98.5); BG OXYHEMOGLOBIN 96.4 % (94.0-97.0); BG PCO2 76.4 mmHg (35.0-45.0); BG PH 7.387 (7.350-7.450); BG PO2 109.2 mmHg (75.0-100.0); BG SAMPLE SITE RIGHT RADIAL; BG TIDAL VOLUME(mL) 450 mL; BG TOTAL HEMOGLOBIN 8.4 g/dL (12.0-18.0); BG VENT MODE PRVC; BG VENT RATE 30 set
[2019-08-30 12:19] LABS: PLATELET ESTIMATE NORMAL
[2019-08-30 12:37] LABS: PHOSPHORUS 2.1 mg/dL (2.5-4.9)
[2019-08-30] MEDS ORDERED: POTASSIUM CHLORIDE INJ 40 MEQ in DEXT 5% WATER 250 ML IV NR (13:00)
[2019-08-30] MEDS: IPRATROPIUM BROMIDE (0.02%) 0.5MG/2.5ML NEB HHN PRN (15:45)
[2019-08-30] MEDS ORDERED: POTASSIUM-SODIUM PHOSPHATE POWDER PACKET PO NR (16:30)
[2019-08-30 23:50] LABS: HEMOGLOBIN 8.1 g/dL (14.0-18.0); MEAN CORPUSCULAR VOLUME 89.5 fL (80.0-94.0); PLATELET 356 x1000/uL (130-400); RED BLOOD CELL COUNT 2.79 mill/uL (4.7-6.1); RED CELL DISTRIBUTION WIDTH 17.9 % (11.6-14.6)
[2019-08-31] VITALS (93 sets, daily range): BP systolic 88–156; BP diastolic 40–100
[2019-08-31] MEDS: FENTANYL CITRATE/PF 2,500 MCG in SODIUM CHLORIDE 0.9% 200 ML IV PRN ×4 (01:05→23:26)
[2019-08-31] MEDS: PROPOFOL 10MG/ML 100ML 100 ML IV PRN ×7 (01:11→23:29)
[2019-08-31] MEDS: MIDAZOLAM HCL 100 MG in DEXT 5% WATER 80 ML IV PRN ×2 (02:16→14:56)
[2019-08-31 05:00] LABS: HEMATOCRIT. 27.6 % (42.0-52.0); HEMOGLOBIN. 8.8 g/dL (14.0-18.0); MEAN CORPUSCULAR HEMOGLOBIN 28.7 pg (28.0-32.0); MEAN CORPUSCULAR VOLUME 90.3 fL (80.0-94.0); MEAN PLATELET VOLUME 7.3 fl (7.4-10.4); PLATELET 399 x1000/uL (130-400); RED BLOOD CELL COUNT 3.06 mill/uL (4.7-6.1); RED CELL DISTRIBUTION WIDTH 18.2 % (11.6-14.6)
[2019-08-31 05:05] LABS: CHLORIDE 95 mEq/L (98-107)
[2019-08-31] MEDS: CALCIUM CARBONATE 500MG TABLET CHEW PO SCH (06:10)
[2019-08-31] MEDS: IPRATROPIUM BROMIDE (0.02%) 0.5MG/2.5ML NEB HHN SCH ×4 (08:27→20:50)
[2019-08-31] MEDS: ACETYLCYSTEINE 100MG/ML 10% VIAL 4ML INH SCH ×2 (08:27→16:23)
[2019-08-31] MEDS: PANTOPRAZOLE SODIUM 40 MG/VIAL IV SCH (08:42)
[2019-08-31] MEDS: MULTIVITAMINS,THER W-MINERALS TABLET PO SCH (08:42)
[2019-08-31] MEDS: METHYLPREDNISOLONE SOD SUCC 40 MG/ML VIAL IV SCH (08:42)
[2019-08-31] MEDS: ASCORBIC ACID 500 MG TABLET PO SCH ×2 (08:42→17:16)
[2019-08-31] MEDS: DOCUSATE SODIUM SUGAR FREE 100MG/10ML UDC NG SCH ×2 (08:42→17:16)
[2019-08-31] MEDS: QUETIAPINE FUMARATE 25MG TABLET PO SCH ×2 (08:42→20:37)
[2019-08-31] MEDS: ENOXAPARIN 40MG/0.4ML SYR SUBCUT SCH ×2 (08:43→11:24)
[2019-08-31 09:29] LABS: BG BASE EXCESS 15.3 mmol/L (-2.0-2.0); BG CARBOXYHEMOGLOBIN 1.1 % (0.5-1.5); BG DEOXYHEMOGLOBIN 2.9 % (0.0-5.0); BG FRACTION INSPIRED OXYGEN 100; BG HCO3 ACT 42.4 mmol/L (22.0-26.0); BG METHEMOGLOBIN 0.3 % (0.0-1.5); BG OXYGEN SATURATION 97.1 % (92.0-98.5); BG OXYHEMOGLOBIN 95.7 % (94.0-97.0); BG PCO2 71.9 mmHg (35.0-45.0); BG PH 7.388 (7.350-7.450); BG PO2 94.8 mmHg (75.0-100.0); BG SAMPLE SITE RIGHT RADIAL; BG TIDAL VOLUME(mL) 450 mL; BG TOTAL HEMOGLOBIN 8.5 g/dL (12.0-18.0); BG VENT MODE VENT - PCV; BG VENT RATE 30 set
[2019-08-31 10:51] LABS: PLATELET ESTIMATE NORMAL
[2019-08-31] MEDS ORDERED: POTASSIUM CHLORIDE 20MEQ TABLET SR PO SCH (11:00)
[2019-08-31] MEDS: METOPROLOL TARTRATE 25MG TABLET PO SCH ×2 (11:23→20:36)
[2019-08-31] MEDS: MIDODRINE HCL 5MG TABLET PO SCH ×3 (11:23→17:16)
[2019-09-01] VITALS (95 sets, daily range): BP systolic 80–146; BP diastolic 35–103
[2019-09-01] MEDS: IPRATROPIUM BROMIDE (0.02%) 0.5MG/2.5ML NEB HHN SCH ×7 (00:10→19:50)
[2019-09-01] MEDS: MIDAZOLAM HCL 100 MG in DEXT 5% WATER 80 ML IV PRN ×3 (01:25→18:04)
[2019-09-01] MEDS: ACETAMINOPHEN 650MG/20.3ML UDC NG PRN ×2 (02:16→21:00)
[2019-09-01] MEDS: PROPOFOL 10MG/ML 100ML 100 ML IV PRN ×5 (03:34→20:40)
[2019-09-01] MEDS: ACETYLCYSTEINE 100MG/ML 10% VIAL 4ML INH SCH ×2 (04:10→15:00)
[2019-09-01] MEDS: FENTANYL CITRATE/PF 2,500 MCG in SODIUM CHLORIDE 0.9% 200 ML IV PRN ×3 (06:16→22:01)
[2019-09-01] MEDS: DILTIAZEM HCL 125 MG in DEXT 5% WATER 100 ML IV PRN (06:16)
[2019-09-01 06:29] LABS: HEMATOCRIT. 29.7 % (42.0-52.0); HEMOGLOBIN. 9.6 g/dL (14.0-18.0); MEAN CORPUSCULAR HEMOGLOBIN 29.1 pg (28.0-32.0); MEAN CORPUSCULAR VOLUME 90.3 fL (80.0-94.0); MEAN PLATELET VOLUME 7.1 fl (7.4-10.4); PLATELET 463 x1000/uL (130-400); RED BLOOD CELL COUNT 3.29 mill/uL (4.7-6.1); RED CELL DISTRIBUTION WIDTH 17.5 % (11.6-14.6)
[2019-09-01 06:37] LABS: CHLORIDE 97 mEq/L (98-107)
[2019-09-01] MEDS ORDERED: LORAZEPAM 2MG/ML CPJ IV PRN (07:00)
[2019-09-01] MEDS ORDERED: HALOPERIDOL LACTATE 5MG/ML VIAL IM PRN ×2 (07:30→07:34)
[2019-09-01 07:44] LABS: PLATELET ESTIMATE SLIGHTLY INCREASED
[2019-09-01] MEDS: PANTOPRAZOLE SODIUM 40 MG/VIAL IV SCH (08:30)
[2019-09-01] MEDS: DOCUSATE SODIUM SUGAR FREE 100MG/10ML UDC NG SCH ×2 (08:31→16:27)
[2019-09-01] MEDS: QUETIAPINE FUMARATE 25MG TABLET PO SCH ×2 (08:31→22:00)
[2019-09-01] MEDS: MULTIVITAMINS,THER W-MINERALS TABLET PO SCH (08:31)
[2019-09-01] MEDS: ASCORBIC ACID 500 MG TABLET PO SCH (08:31)
[2019-09-01] MEDS: METOPROLOL TARTRATE 25MG TABLET PO SCH ×2 (08:32→20:41)
[2019-09-01] MEDS: MIDODRINE HCL 5MG TABLET PO SCH ×3 (08:32→16:27)
[2019-09-01] MEDS: ENOXAPARIN 40MG/0.4ML SYR SUBCUT SCH (08:33)
[2019-09-01 08:47] LABS: BG BASE EXCESS 13.6 mmol/L (-2.0-2.0); BG CARBOXYHEMOGLOBIN 1.1 % (0.5-1.5); BG DEOXYHEMOGLOBIN 8.8 % (0.0-5.0); BG FRACTION INSPIRED OXYGEN 100; BG HCO3 ACT 42.1 mmol/L (22.0-26.0); BG METHEMOGLOBIN 0.2 % (0.0-1.5); BG OXYGEN SATURATION 91.1 % (92.0-98.5); BG OXYHEMOGLOBIN 89.9 % (94.0-97.0); BG PCO2 81.5 mmHg (35.0-45.0); BG PH 7.331 (7.350-7.450); BG PO2 64.8 mmHg (75.0-100.0); BG SAMPLE SITE RIGHT BRACHIAL; BG TIDAL VOLUME(mL) 450 mL; BG TOTAL HEMOGLOBIN 9.9 g/dL (12.0-18.0); BG VENT MODE VENT - PCV; BG VENT RATE 30 set
[2019-09-01] MEDS: CEFEPIME 2,000 MG in DEXT 5% WATER 100 ML IV SCH ×2 (11:27→20:40)
[2019-09-01 15:28] LABS: CLARITY URINE CLOUDY (CLEAR); COLOR URINE DK YELLOW (YELLOW); KETONES URINE NEGATIVE (NEGATIVE); LEUKOCYTE ESTERASE URINE NEGATIVE (NEGATIVE); NITRITE URINE NEGATIVE (NEGATIVE); OCCULT BLOOD URINE NEGATIVE (NEGATIVE); PROTEIN URINE TRACE (NEGATIVE); SPECIFIC GRAVITY URINE 1.017 (1.005-1.030)
[2019-09-01] MEDS: PHENYLEPHRINE 80 MG in DEXT 5% WATER 492 ML IV PRN (16:28)
[2019-09-02] VITALS (69 sets, daily range): BP systolic 88–145; BP diastolic 39–96
[2019-09-02] MEDS: IPRATROPIUM BROMIDE (0.02%) 0.5MG/2.5ML NEB HHN SCH ×5 (00:15→16:53)
[2019-09-02] MEDS: PROPOFOL 10MG/ML 100ML 100 ML IV PRN ×5 (01:52→22:29)
[2019-09-02] MEDS: MIDAZOLAM HCL 100 MG in DEXT 5% WATER 80 ML IV PRN ×2 (04:41→15:30)
[2019-09-02] MEDS: FENTANYL CITRATE/PF 2,500 MCG in SODIUM CHLORIDE 0.9% 200 ML IV PRN ×3 (05:19→20:39)
[2019-09-02 05:30] LABS: CHLORIDE 97 mEq/L (98-107)
[2019-09-02 05:30] LABS: HEMATOCRIT. 26.5 % (42.0-52.0); HEMOGLOBIN. 8.5 g/dL (14.0-18.0); MEAN CORPUSCULAR HEMOGLOBIN 29.3 pg (28.0-32.0); MEAN CORPUSCULAR VOLUME 91.2 fL (80.0-94.0); MEAN PLATELET VOLUME 7.4 fl (7.4-10.4); PLATELET 384 x1000/uL (130-400); RED BLOOD CELL COUNT 2.91 mill/uL (4.7-6.1); RED CELL DISTRIBUTION WIDTH 17.8 % (11.6-14.6)
[2019-09-02] MEDS: DOCUSATE SODIUM SUGAR FREE 100MG/10ML UDC NG SCH ×2 (08:24→17:28)
[2019-09-02] MEDS: ENOXAPARIN 40MG/0.4ML SYR SUBCUT SCH (08:24)
[2019-09-02] MEDS: PANTOPRAZOLE SODIUM 40 MG/VIAL IV SCH (08:24)
[2019-09-02] MEDS: CEFEPIME 2,000 MG in DEXT 5% WATER 100 ML IV SCH ×2 (08:24→20:21)
[2019-09-02] MEDS: MIDODRINE HCL 5MG TABLET PO SCH ×3 (08:25→17:28)
[2019-09-02] MEDS: METOPROLOL TARTRATE 25MG TABLET PO SCH ×2 (08:25→21:28)
[2019-09-02] MEDS: QUETIAPINE FUMARATE 25MG TABLET PO SCH ×2 (08:25→21:28)
[2019-09-02] MEDS: MULTIVITAMINS,THER W-MINERALS TABLET PO SCH (08:25)
[2019-09-02 10:10] LABS: BG CARBOXYHEMOGLOBIN 0.7 % (0.5-1.5); BG DEOXYHEMOGLOBIN 2.9 % (0.0-5.0); BG FRACTION INSPIRED OXYGEN 100; BG HCO3 ACT 36.9 mmol/L (22.0-26.0); BG METHEMOGLOBIN 0.2 % (0.0-1.5); BG OXYGEN SATURATION 97.1 % (92.0-98.5); BG OXYHEMOGLOBIN 96.2 % (94.0-97.0); BG PCO2 65.1 mmHg (35.0-45.0); BG PH 7.371 (7.350-7.450); BG PO2 99.7 mmHg (75.0-100.0); BG SAMPLE SITE RIGHT RADIAL; BG TIDAL VOLUME(mL) 450 mL; BG TOTAL HEMOGLOBIN 9.2 g/dL (12.0-18.0); BG VENT MODE VENT- PRVC; BG VENT RATE 30 set
[2019-09-02 10:25] LABS: PLATELET ESTIMATE NORMAL
[2019-09-02] MEDS: ACETAMINOPHEN 650MG/20.3ML UDC NG PRN (15:25)
[2019-09-02] MEDS: MICAFUNGIN 100 MG in SODIUM CHLORIDE 0.9% 100 ML IV SCH (21:24)
[2019-09-03] VITALS (82 sets, daily range): BP systolic 86–159; BP diastolic 42–96
[2019-09-03] MEDS: MIDAZOLAM HCL 100 MG in DEXT 5% WATER 80 ML IV PRN ×3 (02:17→18:35)
[2019-09-03] MEDS: ACETAMINOPHEN 650MG/20.3ML UDC NG PRN (02:19)
[2019-09-03] MEDS: FENTANYL CITRATE/PF 2,500 MCG in SODIUM CHLORIDE 0.9% 200 ML IV PRN ×3 (03:37→18:36)
[2019-09-03] MEDS: PROPOFOL 10MG/ML 100ML 100 ML IV PRN ×4 (03:50→23:48)
[2019-09-03 06:10] LABS: HEMATOCRIT. 28.1 % (42.0-52.0); HEMOGLOBIN. 8.8 g/dL (14.0-18.0); MEAN CORPUSCULAR HEMOGLOBIN 28.7 pg (28.0-32.0); MEAN CORPUSCULAR VOLUME 91.5 fL (80.0-94.0); MEAN PLATELET VOLUME 7.4 fl (7.4-10.4); PLATELET 426 x1000/uL (130-400); RED BLOOD CELL COUNT 3.07 mill/uL (4.7-6.1); RED CELL DISTRIBUTION WIDTH 17.4 % (11.6-14.6)
[2019-09-03 06:21] LABS: CHLORIDE 97 mEq/L (98-107)
[2019-09-03] MEDS: DOCUSATE SODIUM SUGAR FREE 100MG/10ML UDC NG SCH ×2 (08:05→16:19)
[2019-09-03] MEDS: MULTIVITAMINS,THER W-MINERALS TABLET PO SCH (08:05)
[2019-09-03] MEDS: ENOXAPARIN 40MG/0.4ML SYR SUBCUT SCH (08:05)
[2019-09-03] MEDS: MIDODRINE HCL 5MG TABLET PO SCH ×3 (08:05→16:20)
[2019-09-03] MEDS: PANTOPRAZOLE SODIUM 40 MG/VIAL IV SCH (08:05)
[2019-09-03] MEDS: METOPROLOL TARTRATE 25MG TABLET PO SCH ×2 (08:06→20:53)
[2019-09-03] MEDS: QUETIAPINE FUMARATE 25MG TABLET PO SCH ×2 (08:07→20:54)
[2019-09-03] MEDS: CEFEPIME 2,000 MG in DEXT 5% WATER 100 ML IV SCH ×2 (08:08→20:25)
[2019-09-03 08:45] LABS: BG CARBOXYHEMOGLOBIN 1.2 % (0.5-1.5); BG DEOXYHEMOGLOBIN 4.2 % (0.0-5.0); BG FRACTION INSPIRED OXYGEN 100; BG HCO3 ACT 45.2 mmol/L (22.0-26.0); BG METHEMOGLOBIN 0.3 % (0.0-1.5); BG OXYGEN SATURATION 95.7 % (92.0-98.5); BG OXYHEMOGLOBIN 94.3 % (94.0-97.0); BG PCO2 93.8 mmHg (35.0-45.0); BG PH 7.301 (7.350-7.450); BG PO2 87.1 mmHg (75.0-100.0); BG SAMPLE SITE RIGHT RADIAL; BG TIDAL VOLUME(mL) 450 mL; BG TOTAL HEMOGLOBIN 9.2 g/dL (12.0-18.0); BG VENT MODE VENT- PRVC; BG VENT RATE 30 set
[2019-09-03] MEDS: IPRATROPIUM BROMIDE (0.02%) 0.5MG/2.5ML NEB HHN SCH ×4 (09:15→23:30)
[2019-09-03] MEDS ORDERED: PROPOFOL 10MG/ML 100ML 100 ML IV PRN (10:15)
[2019-09-03 10:24] LABS: PLATELET ESTIMATE INCREASED
[2019-09-03] MEDS: MICAFUNGIN 100 MG in SODIUM CHLORIDE 0.9% 100 ML IV SCH (19:34)
[2019-09-04] VITALS (90 sets, daily range): BP systolic 101–168; BP diastolic 47–115
[2019-09-04] MEDS: FENTANYL CITRATE/PF 2,500 MCG in SODIUM CHLORIDE 0.9% 200 ML IV PRN ×3 (01:20→17:44)
[2019-09-04] MEDS: MIDAZOLAM HCL 100 MG in DEXT 5% WATER 80 ML IV PRN ×3 (02:42→17:46)
[2019-09-04] MEDS: PROPOFOL 10MG/ML 100ML 100 ML IV PRN ×6 (03:33→21:01)
[2019-09-04] MEDS: IPRATROPIUM BROMIDE (0.02%) 0.5MG/2.5ML NEB HHN SCH ×4 (04:55→20:10)
[2019-09-04 05:39] LABS: HEMATOCRIT. 26.8 % (42.0-52.0); HEMOGLOBIN. 8.6 g/dL (14.0-18.0); MEAN CORPUSCULAR HEMOGLOBIN 29.1 pg (28.0-32.0); MEAN CORPUSCULAR VOLUME 90.9 fL (80.0-94.0); MEAN PLATELET VOLUME 7.7 fl (7.4-10.4); PLATELET 476 x1000/uL (130-400); RED BLOOD CELL COUNT 2.95 mill/uL (4.7-6.1); RED CELL DISTRIBUTION WIDTH 17.1 % (11.6-14.6)
[2019-09-04 05:46] LABS: CHLORIDE 95 mEq/L (98-107)
[2019-09-04] MEDS: QUETIAPINE FUMARATE 25MG TABLET PO SCH ×2 (08:19→20:20)
[2019-09-04] MEDS: MULTIVITAMINS,THER W-MINERALS TABLET PO SCH (08:19)
[2019-09-04] MEDS: METOPROLOL TARTRATE 25MG TABLET PO SCH ×2 (08:19→20:20)
[2019-09-04] MEDS: MIDODRINE HCL 5MG TABLET PO SCH ×3 (08:19→18:09)
[2019-09-04] MEDS: ENOXAPARIN 40MG/0.4ML SYR SUBCUT SCH (08:20)
[2019-09-04] MEDS: CEFEPIME 2,000 MG in DEXT 5% WATER 100 ML IV SCH ×2 (08:21→20:21)
[2019-09-04 08:58] LABS: BG BASE EXCESS 16.8 mmol/L (-2.0-2.0); BG CARBOXYHEMOGLOBIN 0.9 % (0.5-1.5); BG DEOXYHEMOGLOBIN 9.1 % (0.0-5.0); BG FRACTION INSPIRED OXYGEN 100; BG HCO3 ACT 45.7 mmol/L (22.0-26.0); BG METHEMOGLOBIN 0.3 % (0.0-1.5); BG OXYGEN SATURATION 90.8 % (92.0-98.5); BG OXYHEMOGLOBIN 89.7 % (94.0-97.0); BG PCO2 88.3 mmHg (35.0-45.0); BG PH 7.332 (7.350-7.450); BG PO2 61.9 mmHg (75.0-100.0); BG SAMPLE SITE RIGHT RADIAL; BG TIDAL VOLUME(mL) 450 mL; BG TOTAL HEMOGLOBIN 9.7 g/dL (12.0-18.0); BG VENT MODE VENT- PRVC; BG VENT RATE 30 set
[2019-09-04 10:21] LABS: NUCLEATED RED BLOOD CELLS 1 /100 WBC
[2019-09-04 10:22] LABS: PLATELET ESTIMATE INCREASED
[2019-09-04] MEDS: ACETYLCYSTEINE 100MG/ML 10% VIAL 4ML INH SCH (16:39)
[2019-09-04] MEDS: MICAFUNGIN 100 MG in SODIUM CHLORIDE 0.9% 100 ML IV SCH (20:20)
[2019-09-05] VITALS (88 sets, daily range): BP systolic 108–149; BP diastolic 54–121
[2019-09-05] MEDS: ACETYLCYSTEINE 100MG/ML 10% VIAL 4ML INH SCH ×4 (00:05→14:00)
[2019-09-05] MEDS: IPRATROPIUM BROMIDE (0.02%) 0.5MG/2.5ML NEB HHN SCH ×4 (00:05→20:48)
[2019-09-05] MEDS: PROPOFOL 10MG/ML 100ML 100 ML IV PRN ×7 (00:50→23:17)
[2019-09-05] MEDS: FENTANYL CITRATE/PF 2,500 MCG in SODIUM CHLORIDE 0.9% 200 ML IV PRN ×3 (00:51→17:39)
[2019-09-05] MEDS: MIDAZOLAM HCL 100 MG in DEXT 5% WATER 80 ML IV PRN ×4 (01:17→23:01)
[2019-09-05 06:25] LABS: CHLORIDE 96 mEq/L (98-107)
[2019-09-05 06:31] LABS: HEMATOCRIT. 26.3 % (42.0-52.0); HEMOGLOBIN. 8.3 g/dL (14.0-18.0); MEAN CORPUSCULAR HEMOGLOBIN 28.6 pg (28.0-32.0); MEAN CORPUSCULAR VOLUME 90.4 fL (80.0-94.0); MEAN PLATELET VOLUME 7.7 fl (7.4-10.4); PLATELET 475 x1000/uL (130-400); RED BLOOD CELL COUNT 2.91 mill/uL (4.7-6.1)
[2019-09-05 08:50] LABS: BG BASE EXCESS 10.9 mmol/L (-2.0-2.0); BG CARBOXYHEMOGLOBIN 0.8 % (0.5-1.5); BG DEOXYHEMOGLOBIN 2.4 % (0.0-5.0); BG OXYGEN SATURATION 97.6 % (92.0-98.5); BG OXYHEMOGLOBIN 96.8 % (94.0-97.0); BG PCO2 59.6 mmHg (35.0-45.0); BG PH 7.411 (7.350-7.450); BG PO2 104.4 mmHg (75.0-100.0); BG SAMPLE SITE RIGHT RADIAL; BG TIDAL VOLUME(mL) 450 mL; BG TOTAL HEMOGLOBIN 8.9 g/dL (12.0-18.0); BG VENT MODE VENT - A/C; BG VENT RATE 30 set
[2019-09-05] MEDS: METOPROLOL TARTRATE 25MG TABLET PO SCH ×2 (09:11→20:05)
[2019-09-05] MEDS: QUETIAPINE FUMARATE 25MG TABLET PO SCH ×2 (09:11→20:05)
[2019-09-05] MEDS: MULTIVITAMINS,THER W-MINERALS TABLET PO SCH (09:11)
[2019-09-05] MEDS: CEFEPIME 2,000 MG in DEXT 5% WATER 100 ML IV SCH ×2 (09:11→20:04)
[2019-09-05] MEDS: ENOXAPARIN 40MG/0.4ML SYR SUBCUT SCH (09:16)
[2019-09-05] MEDS: MIDODRINE HCL 5MG TABLET PO SCH ×3 (09:18→17:30)
[2019-09-05 10:51] LABS: PLATELET ESTIMATE INCREASED
[2019-09-05] MEDS: ACETAMINOPHEN 650MG/20.3ML UDC NG PRN (17:30)
[2019-09-05] MEDS: MICAFUNGIN 100 MG in SODIUM CHLORIDE 0.9% 100 ML IV SCH (20:04)
[2019-09-06] VITALS (104 sets, daily range): BP systolic 88–151; BP diastolic 49–125
[2019-09-06] MEDS: FENTANYL CITRATE/PF 2,500 MCG in SODIUM CHLORIDE 0.9% 200 ML IV PRN ×3 (00:13→16:59)
[2019-09-06] MEDS: IPRATROPIUM BROMIDE (0.02%) 0.5MG/2.5ML NEB HHN SCH ×6 (01:20→20:05)
[2019-09-06] MEDS: ACETYLCYSTEINE 100MG/ML 10% VIAL 4ML INH SCH ×3 (01:20→15:18)
[2019-09-06] MEDS: PROPOFOL 10MG/ML 100ML 100 ML IV PRN ×4 (03:28→20:09)
[2019-09-06 05:43] LABS: HEMATOCRIT. 26.4 % (42.0-52.0); HEMOGLOBIN. 8.5 g/dL (14.0-18.0); MEAN CORPUSCULAR HEMOGLOBIN 28.7 pg (28.0-32.0); MEAN CORPUSCULAR VOLUME 89.3 fL (80.0-94.0); MEAN PLATELET VOLUME 7.6 fl (7.4-10.4); PLATELET 502 x1000/uL (130-400); RED BLOOD CELL COUNT 2.96 mill/uL (4.7-6.1); RED CELL DISTRIBUTION WIDTH 17.2 % (11.6-14.6)
[2019-09-06 06:09] LABS: CHLORIDE 94 mEq/L (98-107)
[2019-09-06] MEDS: MIDAZOLAM HCL 100 MG in DEXT 5% WATER 80 ML IV PRN ×3 (06:29→20:09)
[2019-09-06] MEDS: METOPROLOL TARTRATE 25MG TABLET PO SCH ×2 (08:43→20:51)
[2019-09-06] MEDS: CEFEPIME 2,000 MG in DEXT 5% WATER 100 ML IV SCH ×2 (08:44→21:33)
[2019-09-06] MEDS: MIDODRINE HCL 5MG TABLET PO SCH ×3 (08:46→17:57)
[2019-09-06] MEDS: QUETIAPINE FUMARATE 25MG TABLET PO SCH ×2 (08:46→20:52)
[2019-09-06] MEDS: MULTIVITAMINS,THER W-MINERALS TABLET PO SCH (08:46)
[2019-09-06] MEDS: ENOXAPARIN 40MG/0.4ML SYR SUBCUT SCH (08:59)
[2019-09-06 09:19] LABS: BG BASE EXCESS 15.4 mmol/L (-2.0-2.0); BG CARBOXYHEMOGLOBIN 0.6 % (0.5-1.5); BG DEOXYHEMOGLOBIN 3.6 % (0.0-5.0); BG HCO3 ACT 44.5 mmol/L (22.0-26.0); BG METHEMOGLOBIN 0.3 % (0.0-1.5); BG OXYGEN SATURATION 96.4 % (92.0-98.5); BG OXYHEMOGLOBIN 95.5 % (94.0-97.0); BG PCO2 86.5 mmHg (35.0-45.0); BG PH 7.329 (7.350-7.450); BG PO2 90.7 mmHg (75.0-100.0); BG SAMPLE SITE RIGHT RADIAL; BG TIDAL VOLUME(mL) 450 mL; BG TOTAL HEMOGLOBIN 10.5 g/dL (12.0-18.0); BG VENT MODE VENT - A/C; BG VENT RATE 30 set
[2019-09-06 09:28] LABS: PLATELET ESTIMATE INCREASED
[2019-09-06] MEDS: MICAFUNGIN 100 MG in SODIUM CHLORIDE 0.9% 100 ML IV SCH (20:13)
[2019-09-07] VITALS (91 sets, daily range): BP systolic 76–146; BP diastolic 39–105
[2019-09-07] MEDS: IPRATROPIUM BROMIDE (0.02%) 0.5MG/2.5ML NEB HHN SCH ×4 (00:10→21:10)
[2019-09-07] MEDS: ACETYLCYSTEINE 100MG/ML 10% VIAL 4ML INH SCH (00:10)
[2019-09-07] MEDS: PROPOFOL 10MG/ML 100ML 100 ML IV PRN ×7 (00:19→20:04)
[2019-09-07] MEDS: FENTANYL CITRATE/PF 2,500 MCG in SODIUM CHLORIDE 0.9% 200 ML IV PRN ×3 (00:23→14:53)
[2019-09-07] MEDS: MIDAZOLAM HCL 100 MG in DEXT 5% WATER 80 ML IV PRN ×3 (03:35→18:25)
[2019-09-07] MEDS: METOPROLOL TARTRATE 25MG TABLET PO SCH ×2 (08:47→20:02)
[2019-09-07] MEDS: MIDODRINE HCL 5MG TABLET PO SCH ×2 (08:48→13:37)
[2019-09-07] MEDS: MULTIVITAMINS,THER W-MINERALS TABLET PO SCH (08:48)
[2019-09-07] MEDS: QUETIAPINE FUMARATE 25MG TABLET PO SCH ×2 (08:48→20:04)
[2019-09-07] MEDS: ENOXAPARIN 40MG/0.4ML SYR SUBCUT SCH (08:48)
[2019-09-07] MEDS: ACETAMINOPHEN 650MG/20.3ML UDC PO PRN (08:49)
[2019-09-07 08:56] LABS: BG BASE EXCESS 19.3 mmol/L (-2.0-2.0); BG CARBOXYHEMOGLOBIN 1.2 % (0.5-1.5); BG FRACTION INSPIRED OXYGEN 100; BG HCO3 ACT 45.9 mmol/L (22.0-26.0); BG METHEMOGLOBIN 0.3 % (0.0-1.5); BG OXYHEMOGLOBIN 97.5 % (94.0-97.0); BG PCO2 68.3 mmHg (35.0-45.0); BG PH 7.445 (7.350-7.450); BG PO2 129.6 mmHg (75.0-100.0); BG SAMPLE SITE RIGHT RADIAL; BG TIDAL VOLUME(mL) 450 mL; BG TOTAL HEMOGLOBIN 8.8 g/dL (12.0-18.0); BG VENT MODE VENT- PRVC; BG VENT RATE 30 set
[2019-09-07 14:32] LABS: CHLORIDE 94 mEq/L (98-107)
[2019-09-07 15:02] LABS: HEMATOCRIT. 26.4 % (42.0-52.0); HEMOGLOBIN. 8.2 g/dL (14.0-18.0); MEAN CORPUSCULAR HEMOGLOBIN 28.3 pg (28.0-32.0); MEAN CORPUSCULAR VOLUME 90.5 fL (80.0-94.0); MEAN PLATELET VOLUME 7.9 fl (7.4-10.4); PLATELET 540 x1000/uL (130-400); RED BLOOD CELL COUNT 2.92 mill/uL (4.7-6.1); RED CELL DISTRIBUTION WIDTH 17.7 % (11.6-14.6)
[2019-09-07 17:05] LABS: PLATELET ESTIMATE INCREASED
[2019-09-07] MEDS: MICAFUNGIN 100 MG in SODIUM CHLORIDE 0.9% 100 ML IV SCH (20:01)
[2019-09-07 21:52] LABS: BG BASE EXCESS 17.5 mmol/L (-2.0-2.0); BG CARBOXYHEMOGLOBIN 0.5 % (0.5-1.5); BG DEOXYHEMOGLOBIN 1.5 % (0.0-5.0); BG FRACTION INSPIRED OXYGEN 100; BG HCO3 ACT 43.7 mmol/L (22.0-26.0); BG METHEMOGLOBIN 0.6 % (0.0-1.5); BG OXYGEN SATURATION 98.5 % (92.0-98.5); BG OXYHEMOGLOBIN 97.4 % (94.0-97.0); BG PCO2 64.9 mmHg (35.0-45.0); BG PH 7.446 (7.350-7.450); BG PO2 136.9 mmHg (75.0-100.0); BG SAMPLE SITE RIGHT RADIAL; BG TIDAL VOLUME(mL) 450 mL; BG TOTAL HEMOGLOBIN 8.1 g/dL (12.0-18.0); BG VENT MODE PRVC; BG VENT RATE 30 set
[2019-09-08] VITALS (86 sets, daily range): BP systolic 90–144; BP diastolic 45–97
[2019-09-08] MEDS: ACETYLCYSTEINE 100MG/ML 10% VIAL 4ML INH SCH ×4 (00:10→16:08)
[2019-09-08] MEDS: FENTANYL CITRATE/PF 2,500 MCG in SODIUM CHLORIDE 0.9% 200 ML IV PRN ×4 (00:21→23:17)
[2019-09-08] MEDS: IPRATROPIUM BROMIDE (0.02%) 0.5MG/2.5ML NEB HHN SCH ×6 (00:40→20:00)
[2019-09-08] MEDS: PROPOFOL 10MG/ML 100ML 100 ML IV PRN ×5 (00:56→21:33)
[2019-09-08] MEDS: MIDAZOLAM HCL 100 MG in DEXT 5% WATER 80 ML IV PRN ×4 (03:20→23:33)
[2019-09-08 05:45] LABS: HEMATOCRIT. 23.7 % (42.0-52.0); HEMOGLOBIN. 7.7 g/dL (14.0-18.0); MEAN CORPUSCULAR HEMOGLOBIN 28.8 pg (28.0-32.0); MEAN CORPUSCULAR VOLUME 88.4 fL (80.0-94.0); MEAN PLATELET VOLUME 7.7 fl (7.4-10.4); PLATELET 485 x1000/uL (130-400); RED BLOOD CELL COUNT 2.68 mill/uL (4.7-6.1); RED CELL DISTRIBUTION WIDTH 17.4 % (11.6-14.6)
[2019-09-08 05:58] LABS: CHLORIDE 94 mEq/L (98-107)
[2019-09-08] MEDS: ENOXAPARIN 40MG/0.4ML SYR SUBCUT SCH (09:04)
[2019-09-08] MEDS: ACETAMINOPHEN 650MG/20.3ML UDC PO PRN ×3 (09:04→20:18)
[2019-09-08] MEDS: METOPROLOL TARTRATE 25MG TABLET PO SCH ×2 (09:05→20:17)
[2019-09-08] MEDS: MULTIVITAMINS,THER W-MINERALS TABLET PO SCH (09:05)
[2019-09-08] MEDS: QUETIAPINE FUMARATE 25MG TABLET PO SCH ×2 (09:05→20:18)
[2019-09-08] MEDS ORDERED: POTASSIUM CHLORIDE 20MEQ TABLET SR PO SCH (09:15)
[2019-09-08 13:44] LABS: PLATELET ESTIMATE INCREASED
[2019-09-09] VITALS (80 sets, daily range): BP systolic 105–156; BP diastolic 61–101
[2019-09-09] MEDS: IPRATROPIUM BROMIDE (0.02%) 0.5MG/2.5ML NEB HHN SCH ×3 (00:10→22:36)
[2019-09-09] MEDS: PROPOFOL 10MG/ML 100ML 100 ML IV PRN ×3 (02:27→17:12)
[2019-09-09] MEDS: ACETAMINOPHEN 650MG/20.3ML UDC PO PRN (03:57)
[2019-09-09 06:01] LABS: CHLORIDE 96 mEq/L (98-107)
[2019-09-09 06:09] LABS: HEMATOCRIT. 24.2 % (42.0-52.0); HEMOGLOBIN. 7.9 g/dL (14.0-18.0); MEAN CORPUSCULAR HEMOGLOBIN 28.8 pg (28.0-32.0); MEAN CORPUSCULAR VOLUME 88.2 fL (80.0-94.0); MEAN PLATELET VOLUME 7.6 fl (7.4-10.4); PLATELET 508 x1000/uL (130-400); RED BLOOD CELL COUNT 2.74 mill/uL (4.7-6.1); RED CELL DISTRIBUTION WIDTH 17.5 % (11.6-14.6)
[2019-09-09] MEDS: MIDAZOLAM HCL 100 MG in DEXT 5% WATER 80 ML IV PRN ×3 (06:59→21:18)
[2019-09-09] MEDS: FENTANYL CITRATE/PF 2,500 MCG in SODIUM CHLORIDE 0.9% 200 ML IV PRN ×3 (07:00→22:34)
[2019-09-09 07:23] LABS: PLATELET ESTIMATE INCREASED
[2019-09-09] MEDS: QUETIAPINE FUMARATE 25MG TABLET PO SCH (08:13)
[2019-09-09] MEDS: MULTIVITAMINS,THER W-MINERALS TABLET PO SCH (08:13)
[2019-09-09] MEDS: ENOXAPARIN 40MG/0.4ML SYR SUBCUT SCH (08:14)
[2019-09-09] MEDS: METOPROLOL TARTRATE 25MG TABLET PO SCH ×2 (08:14→21:46)
[2019-09-09 08:52] LABS: BG BASE EXCESS 13.7 mmol/L (-2.0-2.0); BG CARBOXYHEMOGLOBIN 1.5 % (0.5-1.5); BG DEOXYHEMOGLOBIN 3.7 % (0.0-5.0); BG FRACTION INSPIRED OXYGEN 90; BG HCO3 ACT 40.6 mmol/L (22.0-26.0); BG METHEMOGLOBIN 0.3 % (0.0-1.5); BG OXYGEN SATURATION 96.2 % (92.0-98.5); BG OXYHEMOGLOBIN 94.5 % (94.0-97.0); BG PH 7.388 (7.350-7.450); BG PO2 85.5 mmHg (75.0-100.0); BG SAMPLE SITE RIGHT RADIAL; BG TIDAL VOLUME(mL) 450 mL; BG TOTAL HEMOGLOBIN 8.9 g/dL (12.0-18.0); BG VENT MODE VENT- PRVC; BG VENT RATE 30 set
[2019-09-09] MEDS: QUETIAPINE FUMARATE 50MG TABLET PO SCH (21:47)
[2019-09-10] VITALS (90 sets, daily range): BP systolic 91–153; BP diastolic 49–103
[2019-09-10] MEDS: PROPOFOL 10MG/ML 100ML 100 ML IV PRN ×4 (00:34→22:33)
[2019-09-10] MEDS: IPRATROPIUM BROMIDE (0.02%) 0.5MG/2.5ML NEB HHN SCH ×3 (01:21→20:32)
[2019-09-10] MEDS: MIDAZOLAM HCL 100 MG in DEXT 5% WATER 80 ML IV PRN ×2 (04:27→12:27)
[2019-09-10 05:50] LABS: HEMATOCRIT. 23.3 % (42.0-52.0); HEMOGLOBIN. 7.5 g/dL (14.0-18.0); MEAN CORPUSCULAR HEMOGLOBIN 28.3 pg (28.0-32.0); MEAN CORPUSCULAR VOLUME 88.1 fL (80.0-94.0); MEAN PLATELET VOLUME 7.6 fl (7.4-10.4); PLATELET 540 x1000/uL (130-400); RED BLOOD CELL COUNT 2.65 mill/uL (4.7-6.1); RED CELL DISTRIBUTION WIDTH 17.2 % (11.6-14.6)
[2019-09-10 05:54] LABS: CHLORIDE 94 mEq/L (98-107)
[2019-09-10] MEDS: FENTANYL CITRATE/PF 2,500 MCG in SODIUM CHLORIDE 0.9% 200 ML IV PRN ×3 (06:18→22:59)
[2019-09-10 07:53] LABS: NUCLEATED RED BLOOD CELLS 1 /100 WBC
[2019-09-10 07:54] LABS: PLATELET ESTIMATE INCREASED
[2019-09-10] MEDS: QUETIAPINE FUMARATE 50MG TABLET PO SCH ×2 (08:24→20:20)
[2019-09-10] MEDS: ENOXAPARIN 40MG/0.4ML SYR SUBCUT SCH (08:24)
[2019-09-10] MEDS: MULTIVITAMINS,THER W-MINERALS TABLET PO SCH (08:24)
[2019-09-10] MEDS: METOPROLOL TARTRATE 25MG TABLET PO SCH ×2 (08:25→20:20)
[2019-09-10 09:14] LABS: BG BASE EXCESS 18.2 mmol/L (-2.0-2.0); BG CARBOXYHEMOGLOBIN 0.7 % (0.5-1.5); BG DEOXYHEMOGLOBIN 5.3 % (0.0-5.0); BG FRACTION INSPIRED OXYGEN 100; BG HCO3 ACT 46.2 mmol/L (22.0-26.0); BG METHEMOGLOBIN 0.2 % (0.0-1.5); BG OXYGEN SATURATION 94.7 % (92.0-98.5); BG OXYHEMOGLOBIN 93.8 % (94.0-97.0); BG PH 7.374 (7.350-7.450); BG PO2 76.1 mmHg (75.0-100.0); BG SAMPLE SITE RIGHT BRACHIAL; BG TIDAL VOLUME(mL) 450 mL; BG TOTAL HEMOGLOBIN 9.2 g/dL (12.0-18.0); BG VENT MODE VENT- PRVC; BG VENT RATE 25 set
[2019-09-10] MEDS: ACETAMINOPHEN 650MG/20.3ML UDC PO PRN ×2 (12:15→20:20)
[2019-09-10] MEDS ORDERED: SODIUM CHLORIDE 0.9% 500 ML IV ONE (14:30)
[2019-09-11] VITALS (91 sets, daily range): BP systolic 96–164; BP diastolic 50–103
[2019-09-11] MEDS: MIDAZOLAM HCL 100 MG in DEXT 5% WATER 80 ML IV PRN ×2 (00:15→15:29)
[2019-09-11] MEDS: PROPOFOL 10MG/ML 100ML 100 ML IV PRN ×6 (03:35→23:21)
[2019-09-11 05:28] LABS: HEMOGLOBIN. 7.8 g/dL (14.0-18.0); MEAN CORPUSCULAR HEMOGLOBIN 28.7 pg (28.0-32.0); MEAN CORPUSCULAR VOLUME 88.9 fL (80.0-94.0); MEAN PLATELET VOLUME 7.8 fl (7.4-10.4); PLATELET 530 x1000/uL (130-400); RED CELL DISTRIBUTION WIDTH 17.6 % (11.6-14.6)
[2019-09-11 05:36] LABS: CHLORIDE 97 mEq/L (98-107)
[2019-09-11] MEDS: FENTANYL CITRATE/PF 2,500 MCG in SODIUM CHLORIDE 0.9% 200 ML IV PRN ×3 (06:11→20:56)
[2019-09-11] MEDS: METOPROLOL TARTRATE 25MG TABLET PO SCH ×2 (08:18→20:24)
[2019-09-11] MEDS: MULTIVITAMINS,THER W-MINERALS TABLET PO SCH (08:18)
[2019-09-11] MEDS: QUETIAPINE FUMARATE 50MG TABLET PO SCH ×2 (08:18→20:25)
[2019-09-11] MEDS: ENOXAPARIN 40MG/0.4ML SYR SUBCUT SCH (08:22)
[2019-09-11] MEDS: IPRATROPIUM BROMIDE (0.02%) 0.5MG/2.5ML NEB HHN SCH ×4 (08:22→20:17)
[2019-09-11 09:43] LABS: BG BASE EXCESS 14.4 mmol/L (-2.0-2.0); BG CARBOXYHEMOGLOBIN 0.4 % (0.5-1.5); BG DEOXYHEMOGLOBIN 4.8 % (0.0-5.0); BG FRACTION INSPIRED OXYGEN 100; BG HCO3 ACT 42.7 mmol/L (22.0-26.0); BG METHEMOGLOBIN 0.3 % (0.0-1.5); BG OXYGEN SATURATION 95.2 % (92.0-98.5); BG OXYHEMOGLOBIN 94.5 % (94.0-97.0); BG PCO2 79.8 mmHg (35.0-45.0); BG PH 7.346 (7.350-7.450); BG PO2 80.8 mmHg (75.0-100.0); BG SAMPLE SITE LEFT RADIAL; BG TIDAL VOLUME(mL) 450 mL; BG TOTAL HEMOGLOBIN 9.7 g/dL (12.0-18.0); BG VENT MODE VENT- PRVC; BG VENT RATE 26 set
[2019-09-11 09:55] LABS: PLATELET ESTIMATE INCREASED
[2019-09-11] MEDS ORDERED: SODIUM CHLORIDE 0.9% 500 ML IV SCH (10:00)
[2019-09-11] MEDS: HALOPERIDOL LACTATE 5MG/ML VIAL IM SCH ×2 (14:00→18:00)
[2019-09-12] VITALS (99 sets, daily range): BP systolic 93–151; BP diastolic 25–104
[2019-09-12] MEDS: IPRATROPIUM BROMIDE (0.02%) 0.5MG/2.5ML NEB HHN SCH ×5 (00:43→16:36)
[2019-09-12] MEDS: PROPOFOL 10MG/ML 100ML 100 ML IV PRN ×6 (03:00→23:02)
[2019-09-12] MEDS: MIDAZOLAM HCL 100 MG in DEXT 5% WATER 80 ML IV PRN ×3 (03:00→21:09)
[2019-09-12 05:38] LABS: HEMATOCRIT. 24.8 % (42.0-52.0); HEMOGLOBIN. 8.1 g/dL (14.0-18.0); MEAN CORPUSCULAR VOLUME 88.6 fL (80.0-94.0); MEAN PLATELET VOLUME 7.7 fl (7.4-10.4); PLATELET 563 x1000/uL (130-400); RED CELL DISTRIBUTION WIDTH 17.5 % (11.6-14.6)
[2019-09-12 05:47] LABS: CHLORIDE 97 mEq/L (98-107)
[2019-09-12] MEDS: FENTANYL CITRATE/PF 2,500 MCG in SODIUM CHLORIDE 0.9% 200 ML IV PRN ×3 (06:05→21:09)
[2019-09-12] MEDS: HALOPERIDOL LACTATE 5MG/ML VIAL IM SCH ×3 (06:14→11:32)
[2019-09-12] MEDS: METOPROLOL TARTRATE 25MG TABLET PO SCH ×2 (08:39→20:12)
[2019-09-12] MEDS: MULTIVITAMINS,THER W-MINERALS TABLET PO SCH (08:39)
[2019-09-12] MEDS: ENOXAPARIN 40MG/0.4ML SYR SUBCUT SCH (08:40)
[2019-09-12] MEDS: QUETIAPINE FUMARATE 50MG TABLET PO SCH (08:40)
[2019-09-12] MEDS ORDERED: POTASSIUM CHLORIDE 20MEQ/PACKET PO SCH (08:45)
[2019-09-12 09:19] LABS: BG BASE EXCESS 10.1 mmol/L (-2.0-2.0); BG CARBOXYHEMOGLOBIN 0.1 % (0.5-1.5); BG DEOXYHEMOGLOBIN 0.4 % (0.0-5.0); BG FRACTION INSPIRED OXYGEN 90; BG HCO3 ACT 36.4 mmol/L (22.0-26.0); BG METHEMOGLOBIN 0.1 % (0.0-1.5); BG OXYGEN SATURATION 99.6 % (92.0-98.5); BG OXYHEMOGLOBIN 99.4 % (94.0-97.0); BG PCO2 61.5 mmHg (35.0-45.0); BG PO2 205.2 mmHg (75.0-100.0); BG SAMPLE SITE RIGHT RADIAL; BG TIDAL VOLUME(mL) 450 mL; BG TOTAL HEMOGLOBIN 8.4 g/dL (12.0-18.0); BG VENT MODE PRVC; BG VENT RATE 26 set
[2019-09-12 12:19] LABS: PLATELET ESTIMATE INCREASED
[2019-09-12] MEDS: QUETIAPINE FUMARATE 25MG TABLET PO SCH (20:12)
[2019-09-13] VITALS (97 sets, daily range): BP systolic 91–159; BP diastolic 51–99
[2019-09-13] MEDS: PROPOFOL 10MG/ML 100ML 100 ML IV PRN ×6 (03:55→22:45)
[2019-09-13] MEDS: FENTANYL CITRATE/PF 2,500 MCG in SODIUM CHLORIDE 0.9% 200 ML IV PRN ×3 (04:54→20:44)
[2019-09-13 05:43] LABS: HEMATOCRIT. 23.2 % (42.0-52.0); HEMOGLOBIN. 7.5 g/dL (14.0-18.0); MEAN CORPUSCULAR HEMOGLOBIN 28.2 pg (28.0-32.0); MEAN CORPUSCULAR VOLUME 87.3 fL (80.0-94.0); MEAN PLATELET VOLUME 7.5 fl (7.4-10.4); PLATELET 505 x1000/uL (130-400); RED BLOOD CELL COUNT 2.65 mill/uL (4.7-6.1); RED CELL DISTRIBUTION WIDTH 17.8 % (11.6-14.6)
[2019-09-13 05:51] LABS: CHLORIDE 98 mEq/L (98-107)
[2019-09-13] MEDS: MIDAZOLAM HCL 100 MG in DEXT 5% WATER 80 ML IV PRN ×2 (07:38→20:45)
[2019-09-13 07:55] LABS: PLATELET ESTIMATE INCREASED
[2019-09-13] MEDS: MULTIVITAMINS,THER W-MINERALS TABLET PO SCH (08:59)
[2019-09-13] MEDS: METOPROLOL TARTRATE 25MG TABLET PO SCH ×2 (09:00→21:13)
[2019-09-13] MEDS: QUETIAPINE FUMARATE 25MG TABLET PO SCH (09:00)
[2019-09-13] MEDS: IPRATROPIUM BROMIDE (0.02%) 0.5MG/2.5ML NEB HHN SCH ×4 (10:10→23:03)
[2019-09-13] MEDS: CEFEPIME 2,000 MG in DEXT 5% WATER 100 ML IV SCH ×2 (12:19→21:13)
[2019-09-13] MEDS: ENOXAPARIN 40MG/0.4ML SYR SUBCUT SCH (12:20)
[2019-09-13 13:13] LABS: BG BASE EXCESS 16.1 mmol/L (-2.0-2.0); BG CARBOXYHEMOGLOBIN 0.7 % (0.5-1.5); BG DEOXYHEMOGLOBIN 0.8 % (0.0-5.0); BG FRACTION INSPIRED OXYGEN 100; BG HCO3 ACT 42.9 mmol/L (22.0-26.0); BG METHEMOGLOBIN 0.3 % (0.0-1.5); BG OXYGEN SATURATION 99.2 % (92.0-98.5); BG OXYHEMOGLOBIN 98.2 % (94.0-97.0); BG PCO2 71.9 mmHg (35.0-45.0); BG PH 7.394 (7.350-7.450); BG SAMPLE SITE RIGHT RADIAL; BG TIDAL VOLUME(mL) 450 mL; BG TOTAL HEMOGLOBIN 7.6 g/dL (12.0-18.0); BG VENT MODE VENT - A/C PRVC; BG VENT RATE 26 set
[2019-09-13] MEDS: QUETIAPINE FUMARATE 50MG TABLET PO SCH (21:14)
[2019-09-13] MEDS: ACETAMINOPHEN 650MG/20.3ML UDC PO PRN (21:15)
[2019-09-13] MEDS: DILTIAZEM HCL 5MG/ML 5ML VIAL IV PRN (21:17)
[2019-09-14] VITALS (96 sets, daily range): BP systolic 92–148; BP diastolic 45–95
[2019-09-14] MEDS: IPRATROPIUM BROMIDE (0.02%) 0.5MG/2.5ML NEB HHN SCH ×4 (01:15→15:07)
[2019-09-14] MEDS: PROPOFOL 10MG/ML 100ML 100 ML IV PRN ×5 (03:56→23:32)
[2019-09-14] MEDS: FENTANYL CITRATE/PF 2,500 MCG in SODIUM CHLORIDE 0.9% 200 ML IV PRN ×3 (04:46→20:43)
[2019-09-14] MEDS: MIDAZOLAM HCL 100 MG in DEXT 5% WATER 80 ML IV PRN ×2 (04:47→18:54)
[2019-09-14 05:53] LABS: HEMATOCRIT. 23.6 % (42.0-52.0); HEMOGLOBIN. 7.6 g/dL (14.0-18.0); MEAN CORPUSCULAR HEMOGLOBIN 28.2 pg (28.0-32.0); MEAN CORPUSCULAR VOLUME 87.9 fL (80.0-94.0); MEAN PLATELET VOLUME 7.7 fl (7.4-10.4); PLATELET 522 x1000/uL (130-400); RED BLOOD CELL COUNT 2.68 mill/uL (4.7-6.1); RED CELL DISTRIBUTION WIDTH 17.5 % (11.6-14.6)
[2019-09-14 06:07] LABS: CHLORIDE 98 mEq/L (98-107)
[2019-09-14] MEDS: DILTIAZEM HCL 5MG/ML 5ML VIAL IV PRN ×2 (06:43→19:49)
[2019-09-14] MEDS: CEFEPIME 2,000 MG in DEXT 5% WATER 100 ML IV SCH (08:40)
[2019-09-14] MEDS: ENOXAPARIN 40MG/0.4ML SYR SUBCUT SCH (08:40)
[2019-09-14] MEDS: MULTIVITAMINS,THER W-MINERALS TABLET PO SCH (08:41)
[2019-09-14] MEDS: METOPROLOL TARTRATE 25MG TABLET PO SCH ×2 (08:41→21:37)
[2019-09-14] MEDS: QUETIAPINE FUMARATE 50MG TABLET PO SCH ×2 (08:41→21:37)
[2019-09-14 12:31] LABS: PLATELET ESTIMATE INCREASED
[2019-09-14] MEDS ORDERED: CEFTRIAXONE 2 G PREMIX 50 ML IV SCH (14:45)
[2019-09-14] MEDS ORDERED: CEFTRIAXONE 2 G in DEXTROSE 5% WATER 50 ML IV SCH (16:00)
[2019-09-14] MEDS: CEFEPIME 1,000 MG in DEXTROSE 5% WATER 50 ML IV SCH (23:29)
[2019-09-15] VITALS (97 sets, daily range): BP systolic 91–138; BP diastolic 47–91
[2019-09-15] MEDS: MIDAZOLAM HCL 100 MG in DEXT 5% WATER 80 ML IV PRN ×2 (05:07→19:46)
[2019-09-15] MEDS: FENTANYL CITRATE/PF 2,500 MCG in SODIUM CHLORIDE 0.9% 200 ML IV PRN ×3 (05:07→23:47)
[2019-09-15] MEDS: PROPOFOL 10MG/ML 100ML 100 ML IV PRN ×4 (05:10→22:23)
[2019-09-15 05:50] LABS: HEMATOCRIT. 22.6 % (42.0-52.0); HEMOGLOBIN. 7.3 g/dL (14.0-18.0); MEAN CORPUSCULAR HEMOGLOBIN 28.5 pg (28.0-32.0); MEAN CORPUSCULAR VOLUME 87.5 fL (80.0-94.0); MEAN PLATELET VOLUME 7.9 fl (7.4-10.4); PLATELET 497 x1000/uL (130-400); RED BLOOD CELL COUNT 2.58 mill/uL (4.7-6.1); RED CELL DISTRIBUTION WIDTH 17.7 % (11.6-14.6)
[2019-09-15 06:06] LABS: CHLORIDE 96 mEq/L (98-107)
[2019-09-15 08:17] LABS: BG BASE EXCESS 12.7 mmol/L (-2.0-2.0); BG CARBOXYHEMOGLOBIN 0.3 % (0.5-1.5); BG DEOXYHEMOGLOBIN 2.1 % (0.0-5.0); BG FRACTION INSPIRED OXYGEN 90; BG HCO3 ACT 39.5 mmol/L (22.0-26.0); BG METHEMOGLOBIN 0.8 % (0.0-1.5); BG OXYGEN SATURATION 97.9 % (92.0-98.5); BG OXYHEMOGLOBIN 96.8 % (94.0-97.0); BG PCO2 67.8 mmHg (35.0-45.0); BG PH 7.383 (7.350-7.450); BG PO2 117.3 mmHg (75.0-100.0); BG SAMPLE SITE RIGHT RADIAL; BG TIDAL VOLUME(mL) 450 mL; BG TOTAL HEMOGLOBIN 8.1 g/dL (12.0-18.0); BG VENT MODE VENT- PRVC; BG VENT RATE 26 set
[2019-09-15] MEDS: IPRATROPIUM BROMIDE (0.02%) 0.5MG/2.5ML NEB HHN SCH ×4 (08:28→20:53)
[2019-09-15] MEDS: METOPROLOL TARTRATE 25MG TABLET PO SCH ×2 (09:15→20:17)
[2019-09-15] MEDS: MULTIVITAMINS,THER W-MINERALS TABLET PO SCH (09:15)
[2019-09-15] MEDS: QUETIAPINE FUMARATE 50MG TABLET PO SCH ×2 (09:15→20:13)
[2019-09-15] MEDS: ENOXAPARIN 40MG/0.4ML SYR SUBCUT SCH (09:15)
[2019-09-15] MEDS ORDERED: SODIUM CHLORIDE 0.9% 500 ML IV ONE (10:00)
[2019-09-15] MEDS: CEFEPIME 1,000 MG in DEXTROSE 5% WATER 50 ML IV SCH ×2 (10:06→22:22)
[2019-09-15] MEDS: ACETAMINOPHEN 650MG/20.3ML UDC PO PRN ×2 (10:07→11:10)
[2019-09-15 11:38] LABS: PLATELET ESTIMATE INCREASED
[2019-09-15] MEDS: DILTIAZEM HCL 5MG/ML 5ML VIAL IV PRN ×2 (12:21→20:18)
[2019-09-15] MEDS: MIDODRINE HCL 5MG TABLET PO SCH ×2 (12:58→17:00)
[2019-09-16] VITALS (81 sets, daily range): BP systolic 80–172; BP diastolic 38–108
[2019-09-16] MEDS: IPRATROPIUM BROMIDE (0.02%) 0.5MG/2.5ML NEB HHN SCH ×6 (00:40→20:30)
[2019-09-16] MEDS: PROPOFOL 10MG/ML 100ML 100 ML IV PRN ×3 (05:05→17:32)
[2019-09-16] MEDS: DILTIAZEM HCL 5MG/ML 5ML VIAL IV PRN ×2 (05:37→11:01)
[2019-09-16 06:00] LABS: CHLORIDE 96 mEq/L (98-107); HEMATOCRIT. 23.7 % (42.0-52.0); HEMOGLOBIN. 7.6 g/dL (14.0-18.0); MEAN CORPUSCULAR HEMOGLOBIN 27.8 pg (28.0-32.0); MEAN CORPUSCULAR VOLUME 87.2 fL (80.0-94.0); MEAN PLATELET VOLUME 7.9 fl (7.4-10.4); PLATELET 532 x1000/uL (130-400); RED BLOOD CELL COUNT 2.72 mill/uL (4.7-6.1); RED CELL DISTRIBUTION WIDTH 17.2 % (11.6-14.6)
[2019-09-16] MEDS: FENTANYL CITRATE/PF 2,500 MCG in SODIUM CHLORIDE 0.9% 200 ML IV PRN (07:18)
[2019-09-16] MEDS: MIDODRINE HCL 5MG TABLET PO SCH ×2 (08:18→12:23)
[2019-09-16] MEDS: METOPROLOL TARTRATE 25MG TABLET PO SCH ×2 (08:18→20:38)
[2019-09-16] MEDS: QUETIAPINE FUMARATE 50MG TABLET PO SCH ×2 (08:18→20:38)
[2019-09-16] MEDS: MULTIVITAMINS,THER W-MINERALS TABLET PO SCH (08:19)
[2019-09-16 08:40] LABS: PLATELET ESTIMATE INCREASED
[2019-09-16 09:07] LABS: BG BASE EXCESS 16.2 mmol/L (-2.0-2.0); BG CARBOXYHEMOGLOBIN 0.9 % (0.5-1.5); BG DEOXYHEMOGLOBIN 1.1 % (0.0-5.0); BG FRACTION INSPIRED OXYGEN 80; BG HCO3 ACT 43.6 mmol/L (22.0-26.0); BG METHEMOGLOBIN 0.3 % (0.0-1.5); BG OXYGEN SATURATION 98.9 % (92.0-98.5); BG OXYHEMOGLOBIN 97.7 % (94.0-97.0); BG PCO2 75.5 mmHg (35.0-45.0); BG PH 7.379 (7.350-7.450); BG PO2 130.6 mmHg (75.0-100.0); BG SAMPLE SITE RIGHT RADIAL; BG TIDAL VOLUME(mL) 450 mL; BG TOTAL HEMOGLOBIN 8.2 g/dL (12.0-18.0); BG VENT MODE PRVC; BG VENT RATE 26 set
[2019-09-16] MEDS: CEFEPIME 1,000 MG in DEXTROSE 5% WATER 50 ML IV SCH ×2 (11:00→23:25)
[2019-09-16] MEDS: MIDAZOLAM HCL 100 MG in DEXT 5% WATER 80 ML IV PRN (12:35)
[2019-09-17] VITALS (92 sets, daily range): BP systolic 84–153; BP diastolic 35–97
[2019-09-17] MEDS: PROPOFOL 10MG/ML 100ML 100 ML IV PRN ×7 (02:16→23:35)
[2019-09-17] MEDS: FENTANYL CITRATE/PF 2,500 MCG in SODIUM CHLORIDE 0.9% 200 ML IV PRN ×3 (03:44→21:21)
[2019-09-17 05:03] LABS: HEMATOCRIT. 25.3 % (42.0-52.0); HEMOGLOBIN. 7.9 g/dL (14.0-18.0); MEAN CORPUSCULAR VOLUME 86.5 fL (80.0-94.0); MEAN PLATELET VOLUME 7.7 fl (7.4-10.4); PLATELET 629 x1000/uL (130-400); RED BLOOD CELL COUNT 2.92 mill/uL (4.7-6.1); RED CELL DISTRIBUTION WIDTH 17.3 % (11.6-14.6)
[2019-09-17 05:11] LABS: CHLORIDE 95 mEq/L (98-107)
[2019-09-17] MEDS: IPRATROPIUM BROMIDE (0.02%) 0.5MG/2.5ML NEB HHN SCH ×4 (07:52→21:07)
[2019-09-17 08:35] LABS: BG BASE EXCESS 15.9 mmol/L (-2.0-2.0); BG DEOXYHEMOGLOBIN 0.7 % (0.0-5.0); BG FRACTION INSPIRED OXYGEN 80; BG HCO3 ACT 39.7 mmol/L (22.0-26.0); BG METHEMOGLOBIN 0.3 % (0.0-1.5); BG OXYGEN SATURATION 99.3 % (92.0-98.5); BG PH 7.554 (7.350-7.450); BG PO2 126.7 mmHg (75.0-100.0); BG SAMPLE SITE RIGHT RADIAL; BG TIDAL VOLUME(mL) 450 mL; BG TOTAL HEMOGLOBIN 7.5 g/dL (12.0-18.0); BG VENT MODE VENT- PRVC; BG VENT RATE 26 set
[2019-09-17] MEDS: QUETIAPINE FUMARATE 50MG TABLET PO SCH (08:55)
[2019-09-17] MEDS: ACETAMINOPHEN 650MG/20.3ML UDC PO PRN ×2 (08:55→15:36)
[2019-09-17] MEDS: METOPROLOL TARTRATE 25MG TABLET PO SCH ×2 (08:56→20:05)
[2019-09-17] MEDS: MIDAZOLAM HCL 100 MG in DEXT 5% WATER 80 ML IV PRN ×2 (09:11→19:57)
[2019-09-17 09:39] LABS: NUCLEATED RED BLOOD CELLS 1 /100 WBC; PLATELET ESTIMATE INCREASED
[2019-09-17] MEDS: CEFEPIME 1,000 MG in DEXTROSE 5% WATER 50 ML IV SCH ×2 (13:23→22:43)
[2019-09-17] MEDS: MIDODRINE HCL 5MG TABLET PO SCH ×3 (13:23→17:00)
[2019-09-18] VITALS (116 sets, daily range): BP systolic 47–164; BP diastolic 20–111
[2019-09-18] MEDS: PROPOFOL 10MG/ML 100ML 100 ML IV PRN ×6 (03:02→22:08)
[2019-09-18] MEDS: IPRATROPIUM BROMIDE (0.02%) 0.5MG/2.5ML NEB HHN SCH ×6 (04:00→20:00)
[2019-09-18 05:34] LABS: CHLORIDE 96 mEq/L (98-107)
[2019-09-18 05:39] LABS: HEMOGLOBIN. 8.1 g/dL (14.0-18.0); MEAN CORPUSCULAR HEMOGLOBIN 27.4 pg (28.0-32.0); MEAN CORPUSCULAR VOLUME 87.6 fL (80.0-94.0); MEAN PLATELET VOLUME 7.5 fl (7.4-10.4); PLATELET 609 x1000/uL (130-400); RED BLOOD CELL COUNT 2.97 mill/uL (4.7-6.1); RED CELL DISTRIBUTION WIDTH 17.4 % (11.6-14.6)
[2019-09-18] MEDS: FENTANYL CITRATE/PF 2,500 MCG in SODIUM CHLORIDE 0.9% 200 ML IV PRN ×2 (05:50→14:38)
[2019-09-18] MEDS ORDERED: NOREPINEPHRINE 16 MG in DEXT 5% WATER 234 ML IV PRN (06:45)
[2019-09-18] MEDS: MIDAZOLAM HCL 100 MG in DEXT 5% WATER 80 ML IV PRN ×2 (07:10→17:50)
[2019-09-18] MEDS: METOPROLOL TARTRATE 25MG TABLET PO SCH (09:00)
[2019-09-18] MEDS: MIDODRINE HCL 5MG TABLET PO SCH ×3 (09:06→17:22)
[2019-09-18 09:41] LABS: BG BASE EXCESS 19.7 mmol/L (-2.0-2.0); BG CARBOXYHEMOGLOBIN 1.3 % (0.5-1.5); BG DEOXYHEMOGLOBIN 0.3 % (0.0-5.0); BG FRACTION INSPIRED OXYGEN 100; BG HCO3 ACT 47.8 mmol/L (22.0-26.0); BG METHEMOGLOBIN 0.3 % (0.0-1.5); BG OXYGEN SATURATION 99.7 % (92.0-98.5); BG OXYHEMOGLOBIN 98.1 % (94.0-97.0); BG PCO2 87.3 mmHg (35.0-45.0); BG PH 7.356 (7.350-7.450); BG PO2 247.7 mmHg (75.0-100.0); BG SAMPLE SITE RIGHT RADIAL; BG TIDAL VOLUME(mL) 450 mL; BG TOTAL HEMOGLOBIN 7.9 g/dL (12.0-18.0); BG VENT MODE PRVC; BG VENT RATE 26 set
[2019-09-18] MEDS: CEFEPIME 1,000 MG in DEXTROSE 5% WATER 50 ML IV SCH (11:47)
[2019-09-18] MEDS ORDERED: SODIUM CHLORIDE 0.9% 500 ML IV ONE (13:45)
[2019-09-18 13:46] LABS: PLATELET ESTIMATE INCREASED
[2019-09-19] VITALS (91 sets, daily range): BP systolic 87–157; BP diastolic 57–106
[2019-09-19] MEDS: CEFEPIME 1,000 MG in DEXTROSE 5% WATER 50 ML IV SCH ×3 (00:13→23:00)
[2019-09-19] MEDS: FENTANYL CITRATE/PF 2,500 MCG in SODIUM CHLORIDE 0.9% 200 ML IV PRN ×3 (00:14→15:01)
[2019-09-19] MEDS: DILTIAZEM HCL 5MG/ML 5ML VIAL IV PRN ×3 (00:27→14:11)
[2019-09-19] MEDS: IPRATROPIUM BROMIDE (0.02%) 0.5MG/2.5ML NEB HHN SCH ×5 (00:30→16:56)
[2019-09-19] MEDS: PROPOFOL 10MG/ML 100ML 100 ML IV PRN ×6 (02:06→20:37)
[2019-09-19] MEDS: MIDAZOLAM HCL 100 MG in DEXT 5% WATER 80 ML IV PRN ×2 (05:30→12:45)
[2019-09-19 06:01] LABS: HEMATOCRIT. 25.6 % (42.0-52.0); HEMOGLOBIN. 8.1 g/dL (14.0-18.0); MEAN CORPUSCULAR HEMOGLOBIN 27.5 pg (28.0-32.0); MEAN CORPUSCULAR VOLUME 86.5 fL (80.0-94.0); PLATELET 615 x1000/uL (130-400); RED BLOOD CELL COUNT 2.96 mill/uL (4.7-6.1); RED CELL DISTRIBUTION WIDTH 17.3 % (11.6-14.6)
[2019-09-19 06:10] LABS: CHLORIDE 98 mEq/L (98-107)
[2019-09-19 08:02] LABS: PLATELET ESTIMATE INCREASED
[2019-09-19 08:47] LABS: BG BASE EXCESS 13.6 mmol/L (-2.0-2.0); BG CARBOXYHEMOGLOBIN 0.5 % (0.5-1.5); BG DEOXYHEMOGLOBIN 0.2 % (0.0-5.0); BG HCO3 ACT 38.9 mmol/L (22.0-26.0); BG METHEMOGLOBIN 0.4 % (0.0-1.5); BG OXYGEN SATURATION 99.8 % (92.0-98.5); BG OXYHEMOGLOBIN 98.9 % (94.0-97.0); BG PCO2 54.7 mmHg (35.0-45.0); BG PO2 241.2 mmHg (75.0-100.0); BG SAMPLE SITE RIGHT RADIAL; BG TIDAL VOLUME(mL) 450 mL; BG TOTAL HEMOGLOBIN 9.1 g/dL (12.0-18.0); BG VENT MODE VENT - A/C
[2019-09-19] MEDS: MIDODRINE HCL 5MG TABLET PO SCH ×3 (09:23→16:44)
[2019-09-19] MEDS ORDERED: LIDOCAINE HCL/PF 1% 2ML VIAL ONE (13:10)
[2019-09-20] VITALS (102 sets, daily range): BP systolic 43–177; BP diastolic 15–112
[2019-09-20] MEDS: FENTANYL CITRATE/PF 2,500 MCG in SODIUM CHLORIDE 0.9% 200 ML IV PRN ×3 (00:02→18:29)
[2019-09-20] MEDS: PROPOFOL 10MG/ML 100ML 100 ML IV PRN ×6 (00:46→20:48)
[2019-09-20] MEDS: MIDAZOLAM HCL 100 MG in DEXT 5% WATER 80 ML IV PRN ×3 (02:48→23:51)
[2019-09-20] MEDS: DILTIAZEM HCL 5MG/ML 5ML VIAL IV PRN ×2 (04:24→21:37)
[2019-09-20 05:42] LABS: HEMOGLOBIN. 8.8 g/dL (14.0-18.0); MEAN CORPUSCULAR HEMOGLOBIN 27.5 pg (28.0-32.0); MEAN CORPUSCULAR VOLUME 87.1 fL (80.0-94.0); MEAN PLATELET VOLUME 7.9 fl (7.4-10.4); PLATELET 695 x1000/uL (130-400); RED BLOOD CELL COUNT 3.21 mill/uL (4.7-6.1); RED CELL DISTRIBUTION WIDTH 18.4 % (11.6-14.6)
[2019-09-20 05:53] LABS: CHLORIDE 98 mEq/L (98-107)
[2019-09-20] MEDS: IPRATROPIUM BROMIDE (0.02%) 0.5MG/2.5ML NEB HHN SCH ×4 (08:16→20:41)
[2019-09-20] MEDS: MIDODRINE HCL 5MG TABLET PO SCH ×3 (08:24→16:39)
[2019-09-20 08:44] LABS: BG BASE EXCESS 14.8 mmol/L (-2.0-2.0); BG CARBOXYHEMOGLOBIN 0.4 % (0.5-1.5); BG DEOXYHEMOGLOBIN 0.8 % (0.0-5.0); BG FRACTION INSPIRED OXYGEN 80; BG HCO3 ACT 41.2 mmol/L (22.0-26.0); BG METHEMOGLOBIN 0.2 % (0.0-1.5); BG OXYGEN SATURATION 99.2 % (92.0-98.5); BG OXYHEMOGLOBIN 98.6 % (94.0-97.0); BG PCO2 64.2 mmHg (35.0-45.0); BG PH 7.425 (7.350-7.450); BG PO2 157.7 mmHg (75.0-100.0); BG SAMPLE SITE RIGHT RADIAL; BG TIDAL VOLUME(mL) 450 mL; BG VENT MODE VENT - PRVC; BG VENT RATE 26 set
[2019-09-20 10:01] LABS: PLATELET ESTIMATE INCREASED
[2019-09-20] MEDS ORDERED: POTASSIUM CHLORIDE 20MEQ/PACKET PO NR (16:00)
[2019-09-20 18:12] LABS: BG BASE EXCESS 15.1 mmol/L (-2.0-2.0); BG CARBOXYHEMOGLOBIN 0.3 % (0.5-1.5); BG DEOXYHEMOGLOBIN 2.8 % (0.0-5.0); BG FRACTION INSPIRED OXYGEN 75; BG HCO3 ACT 42.6 mmol/L (22.0-26.0); BG METHEMOGLOBIN 0.2 % (0.0-1.5); BG OXYGEN SATURATION 97.2 % (92.0-98.5); BG OXYHEMOGLOBIN 96.7 % (94.0-97.0); BG PCO2 75.1 mmHg (35.0-45.0); BG PH 7.372 (7.350-7.450); BG SAMPLE SITE RIGHT RADIAL; BG TIDAL VOLUME(mL) 450 mL; BG TOTAL HEMOGLOBIN 9.1 g/dL (12.0-18.0); BG VENT MODE VENT - PRVC; BG VENT RATE 26 set
[2019-09-20] MEDS: PHENYLEPHRINE 40 MG in DEXT 5% WATER 246 ML IV PRN (20:31)
[2019-09-20] MEDS: ACETAMINOPHEN 650MG/20.3ML UDC PO PRN (21:24)
[2019-09-20 22:58] LABS: BG CARBOXYHEMOGLOBIN 0.3 % (0.5-1.5); BG DEOXYHEMOGLOBIN 2.8 % (0.0-5.0); BG FRACTION INSPIRED OXYGEN 85; BG HCO3 ACT 42.8 mmol/L (22.0-26.0); BG METHEMOGLOBIN 0.3 % (0.0-1.5); BG OXYGEN SATURATION 97.2 % (92.0-98.5); BG OXYHEMOGLOBIN 96.6 % (94.0-97.0); BG PCO2 78.9 mmHg (35.0-45.0); BG PH 7.352 (7.350-7.450); BG PO2 98.8 mmHg (75.0-100.0); BG SAMPLE SITE LEFT BRACHIAL; BG TIDAL VOLUME(mL) 450 mL; BG TOTAL HEMOGLOBIN 8.5 g/dL (12.0-18.0); BG VENT MODE VENT - PRVC; BG VENT RATE 26 set
[2019-09-21] VITALS (89 sets, daily range): BP systolic 91–167; BP diastolic 28–105
[2019-09-21] MEDS: IPRATROPIUM BROMIDE (0.02%) 0.5MG/2.5ML NEB HHN SCH ×5 (00:27→16:22)
[2019-09-21] MEDS: PROPOFOL 10MG/ML 100ML 100 ML IV PRN ×4 (01:28→22:38)
[2019-09-21] MEDS: PHENYLEPHRINE 40 MG in DEXT 5% WATER 246 ML IV PRN (01:39)
[2019-09-21 05:42] LABS: HEMATOCRIT. 27.8 % (42.0-52.0); HEMOGLOBIN. 8.8 g/dL (14.0-18.0); MEAN CORPUSCULAR HEMOGLOBIN 27.5 pg (28.0-32.0); MEAN CORPUSCULAR VOLUME 86.9 fL (80.0-94.0); MEAN PLATELET VOLUME 8.2 fl (7.4-10.4); PLATELET 633 x1000/uL (130-400); RED CELL DISTRIBUTION WIDTH 18.6 % (11.6-14.6)
[2019-09-21] MEDS: MIDAZOLAM HCL 100 MG in DEXT 5% WATER 80 ML IV PRN ×2 (09:10→18:30)
[2019-09-21 09:14] LABS: BG BASE EXCESS 15.8 mmol/L (-2.0-2.0); BG CARBOXYHEMOGLOBIN 0.6 % (0.5-1.5); BG DEOXYHEMOGLOBIN 2.5 % (0.0-5.0); BG FRACTION INSPIRED OXYGEN 80; BG HCO3 ACT 44.5 mmol/L (22.0-26.0); BG METHEMOGLOBIN 0.3 % (0.0-1.5); BG OXYGEN SATURATION 97.5 % (92.0-98.5); BG OXYHEMOGLOBIN 96.6 % (94.0-97.0); BG PCO2 87.7 mmHg (35.0-45.0); BG PH 7.323 (7.350-7.450); BG SAMPLE SITE LEFT RADIAL; BG TIDAL VOLUME(mL) 450 mL; BG TOTAL HEMOGLOBIN 8.9 g/dL (12.0-18.0); BG VENT MODE VENT- PRVC; BG VENT RATE 26 set
[2019-09-21] MEDS: MIDODRINE HCL 5MG TABLET PO SCH ×3 (09:15→19:04)
[2019-09-21] MEDS: MULTIVITAMINS,THER W-MINERALS TABLET PO SCH (09:15)
[2019-09-21] MEDS: ENOXAPARIN 40MG/0.4ML SYR SUBCUT SCH (09:16)
[2019-09-21] MEDS: DILTIAZEM HCL 5MG/ML 5ML VIAL IV PRN ×2 (09:16→22:47)
[2019-09-21] MEDS: FENTANYL CITRATE/PF 2,500 MCG in SODIUM CHLORIDE 0.9% 200 ML IV PRN ×2 (09:17→18:30)
[2019-09-21 10:25] LABS: PLATELET ESTIMATE INCREASED
[2019-09-21 10:51] LABS: CHLORIDE 99 mEq/L (98-107)
[2019-09-21] MEDS ORDERED: FENTANYL 75MCG/HR PATCH TOP SCH (17:00)
[2019-09-21] MEDS ORDERED: FENTANYL 25MCG/HR PATCH TOP SCH (18:30)
[2019-09-21] MEDS: QUETIAPINE FUMARATE 50MG TABLET PO SCH (23:45)
[2019-09-22] VITALS (101 sets, daily range): BP systolic 91–157; BP diastolic 48–114
[2019-09-22] MEDS: IPRATROPIUM BROMIDE (0.02%) 0.5MG/2.5ML NEB HHN SCH ×5 (00:55→20:54)
[2019-09-22] MEDS: IPRATROPIUM BROMIDE (0.02%) 0.5MG/2.5ML NEB HHN PRN (02:02)
[2019-09-22] MEDS: PROPOFOL 10MG/ML 100ML 100 ML IV PRN ×2 (02:10→07:18)
[2019-09-22] MEDS: FENTANYL CITRATE/PF 2,500 MCG in SODIUM CHLORIDE 0.9% 200 ML IV PRN ×3 (04:16→23:29)
[2019-09-22] MEDS: MIDAZOLAM HCL 100 MG in DEXT 5% WATER 80 ML IV PRN ×3 (05:00→19:14)
[2019-09-22 07:30] LABS: HEMOGLOBIN. 7.6 g/dL (14.0-18.0); MEAN CORPUSCULAR VOLUME 85.5 fL (80.0-94.0); PLATELET 453 x1000/uL (130-400); RED BLOOD CELL COUNT 2.81 mill/uL (4.7-6.1); RED CELL DISTRIBUTION WIDTH 17.9 % (11.6-14.6)
[2019-09-22 07:31] LABS: CHLORIDE 98 mEq/L (98-107)
[2019-09-22 08:30] LABS: BG BASE EXCESS 19.5 mmol/L (-2.0-2.0); BG CARBOXYHEMOGLOBIN 0.3 % (0.5-1.5); BG DEOXYHEMOGLOBIN 0.4 % (0.0-5.0); BG FRACTION INSPIRED OXYGEN 80; BG HCO3 ACT 45.9 mmol/L (22.0-26.0); BG METHEMOGLOBIN 0.5 % (0.0-1.5); BG OXYGEN SATURATION 99.6 % (92.0-98.5); BG OXYHEMOGLOBIN 98.8 % (94.0-97.0); BG PCO2 67.2 mmHg (35.0-45.0); BG PH 7.452 (7.350-7.450); BG PO2 176.6 mmHg (75.0-100.0); BG SAMPLE SITE RIGHT RADIAL; BG TIDAL VOLUME(mL) 450 mL; BG TOTAL HEMOGLOBIN 8.5 g/dL (12.0-18.0); BG VENT MODE VENT- PRVC; BG VENT RATE 26 set
[2019-09-22 09:08] LABS: PLATELET ESTIMATE SLIGHTLY INCREASED
[2019-09-22] MEDS: QUETIAPINE FUMARATE 50MG TABLET PO SCH ×2 (09:50→20:44)
[2019-09-22] MEDS: MIDODRINE HCL 5MG TABLET PO SCH ×3 (09:50→17:19)
[2019-09-22] MEDS: MULTIVITAMINS,THER W-MINERALS TABLET PO SCH (09:51)
[2019-09-22] MEDS: METOPROLOL TARTRATE 25MG TABLET PO SCH ×2 (09:51→20:45)
[2019-09-22] MEDS ORDERED: POTASSIUM CHLORIDE INJ 40 MEQ in DEXT 5% WATER 250 ML IV ONE (11:00)
[2019-09-22] MEDS: DILTIAZEM HCL 5MG/ML 5ML VIAL IV PRN ×2 (12:02→14:57)
[2019-09-22] MEDS ORDERED: METOPROLOL TARTRATE 25MG TABLET PO NR (17:15)
[2019-09-23] VITALS (96 sets, daily range): BP systolic 65–146; BP diastolic 40–111
[2019-09-23] MEDS: IPRATROPIUM BROMIDE (0.02%) 0.5MG/2.5ML NEB HHN SCH ×6 (00:55→21:06)
[2019-09-23] MEDS: MIDAZOLAM HCL 100 MG in DEXT 5% WATER 80 ML IV PRN ×2 (05:49→17:51)
[2019-09-23 05:51] LABS: HEMATOCRIT. 30.6 % (42.0-52.0); HEMOGLOBIN. 9.7 g/dL (14.0-18.0); MEAN CORPUSCULAR HEMOGLOBIN 27.2 pg (28.0-32.0); MEAN CORPUSCULAR VOLUME 85.6 fL (80.0-94.0); MEAN PLATELET VOLUME 7.9 fl (7.4-10.4); PLATELET 558 x1000/uL (130-400); RED BLOOD CELL COUNT 3.58 mill/uL (4.7-6.1); RED CELL DISTRIBUTION WIDTH 17.5 % (11.6-14.6)
[2019-09-23 05:53] LABS: CHLORIDE 97 mEq/L (98-107)
[2019-09-23] MEDS: DILTIAZEM HCL 5MG/ML 5ML VIAL IV PRN ×4 (07:19→22:39)
[2019-09-23] MEDS: MULTIVITAMINS,THER W-MINERALS TABLET PO SCH (08:19)
[2019-09-23] MEDS: METOPROLOL TARTRATE 25MG TABLET PO SCH ×2 (08:20→22:39)
[2019-09-23] MEDS: MIDODRINE HCL 5MG TABLET PO SCH ×3 (08:20→18:51)
[2019-09-23 08:58] LABS: PLATELET ESTIMATE INCREASED
[2019-09-23] MEDS: QUETIAPINE FUMARATE 50MG TABLET PO SCH ×2 (09:23→22:00)
[2019-09-23] MEDS: FENTANYL CITRATE/PF 2,500 MCG in SODIUM CHLORIDE 0.9% 200 ML IV PRN ×2 (09:39→17:51)
[2019-09-23] MEDS ORDERED: METOPROLOL TARTRATE 25MG TABLET PO SCH (10:30)
[2019-09-23] MEDS ORDERED: QUETIAPINE FUMARATE 50MG TABLET PO SCH ×3 (13:45→21:00)
[2019-09-23] MEDS ORDERED: METOPROLOL TARTRATE 5MG/5ML VIAL IV NR (13:45)
[2019-09-23 16:02] LABS: T4 FREE 1.01 ng/dL (0.76-1.46)
[2019-09-23] MEDS: ESMOLOL 2500MG PREMIX 250 ML IV PRN ×2 (17:52→23:35)
[2019-09-23] MEDS: PIPERACILLIN/TAZOBACTAM 3.375 G in DEXT 5% WATER 100 ML IV SCH (18:51)
[2019-09-24] VITALS (98 sets, daily range): BP systolic 53–144; BP diastolic 18–97
[2019-09-24] MEDS: IPRATROPIUM BROMIDE (0.02%) 0.5MG/2.5ML NEB HHN SCH ×5 (00:48→20:30)
[2019-09-24] MEDS: PIPERACILLIN/TAZOBACTAM 3.375 G in DEXT 5% WATER 100 ML IV SCH ×4 (01:43→18:13)
[2019-09-24] MEDS: ESMOLOL 2500MG PREMIX 250 ML IV PRN ×6 (02:08→23:14)
[2019-09-24] MEDS: MIDAZOLAM HCL 100 MG in DEXT 5% WATER 80 ML IV PRN ×3 (04:02→23:33)
[2019-09-24] MEDS: FENTANYL CITRATE/PF 2,500 MCG in SODIUM CHLORIDE 0.9% 200 ML IV PRN ×3 (04:03→21:27)
[2019-09-24 05:08] LABS: HEMATOCRIT. 29.6 % (42.0-52.0); HEMOGLOBIN. 9.6 g/dL (14.0-18.0); MEAN CORPUSCULAR HEMOGLOBIN 27.6 pg (28.0-32.0); MEAN CORPUSCULAR VOLUME 85.5 fL (80.0-94.0); MEAN PLATELET VOLUME 7.9 fl (7.4-10.4); PLATELET 492 x1000/uL (130-400); RED BLOOD CELL COUNT 3.46 mill/uL (4.7-6.1); RED CELL DISTRIBUTION WIDTH 17.5 % (11.6-14.6)
[2019-09-24 05:15] LABS: CHLORIDE 96 mEq/L (98-107)
[2019-09-24 07:55] LABS: PLATELET ESTIMATE INCREASED
[2019-09-24 08:50] LABS: BG BASE EXCESS 12.5 mmol/L (-2.0-2.0); BG CARBOXYHEMOGLOBIN 1.2 % (0.5-1.5); BG DEOXYHEMOGLOBIN 1.6 % (0.0-5.0); BG FRACTION INSPIRED OXYGEN 80; BG HCO3 ACT 39.3 mmol/L (22.0-26.0); BG METHEMOGLOBIN 0.3 % (0.0-1.5); BG OXYGEN SATURATION 98.4 % (92.0-98.5); BG OXYHEMOGLOBIN 96.9 % (94.0-97.0); BG PCO2 66.7 mmHg (35.0-45.0); BG PH 7.388 (7.350-7.450); BG PO2 125.8 mmHg (75.0-100.0); BG SAMPLE SITE RIGHT RADIAL; BG TIDAL VOLUME(mL) 450 mL; BG TOTAL HEMOGLOBIN 8.7 g/dL (12.0-18.0); BG VENT MODE VENT- PRVC; BG VENT RATE 24 set
[2019-09-24] MEDS: ZINC SULFATE 220 MG ( 50 ) CAPSULE NG SCH (11:47)
[2019-09-24] MEDS: ASCORBIC ACID 500 MG TABLET NG SCH (11:47)
[2019-09-24] MEDS: MIDODRINE HCL 5MG TABLET PO SCH ×3 (11:48→18:13)
[2019-09-24] MEDS: METOPROLOL TARTRATE 25MG TABLET PO SCH ×3 (11:48→21:00)
[2019-09-24] MEDS: MULTIVITAMINS,THER W-MINERALS TABLET PO SCH (11:48)
[2019-09-24] MEDS: QUETIAPINE FUMARATE 50MG TABLET PO SCH ×2 (11:51→20:05)
[2019-09-24] MEDS: ENOXAPARIN 40MG/0.4ML SYR SUBCUT SCH (18:13)
[2019-09-24] MEDS: FENTANYL 75MCG/HR PATCH TOP SCH (19:30)
[2019-09-24] MEDS: PHENYLEPHRINE 40 MG in DEXT 5% WATER 246 ML IV PRN (21:43)
[2019-09-25] VITALS (93 sets, daily range): BP systolic 80–143; BP diastolic 41–90
[2019-09-25] MEDS: IPRATROPIUM BROMIDE (0.02%) 0.5MG/2.5ML NEB HHN SCH ×7 (00:06→23:50)
[2019-09-25] MEDS: PIPERACILLIN/TAZOBACTAM 3.375 G in DEXT 5% WATER 100 ML IV SCH ×4 (00:57→17:05)
[2019-09-25] MEDS: ESMOLOL 2500MG PREMIX 250 ML IV PRN ×4 (02:31→20:47)
[2019-09-25 05:06] LABS: BASOPHILS % 1.4 % (0.0-2.0); EOSINOPHILS % 5.2 % (0.0-5.0); HEMATOCRIT. 30.1 % (42.0-52.0); HEMOGLOBIN. 9.8 g/dL (14.0-18.0); LYMPHOCYTES % 8.1 % (20.0-50.0); MEAN CORPUSCULAR HEMOGLOBIN 27.8 pg (28.0-32.0); MEAN CORPUSCULAR VOLUME 85.6 fL (80.0-94.0); MONOCYTES % 5.5 % (2.0-8.0); NEUTROPHILS % 79.8 % (40.0-76.0); PLATELET 549 x1000/uL (130-400); RED BLOOD CELL COUNT 3.51 mill/uL (4.7-6.1); RED CELL DISTRIBUTION WIDTH 18.1 % (11.6-14.6)
[2019-09-25 05:10] LABS: CHLORIDE 96 mEq/L (98-107)
[2019-09-25] MEDS: FENTANYL CITRATE/PF 2,500 MCG in SODIUM CHLORIDE 0.9% 200 ML IV PRN ×2 (06:49→16:10)
[2019-09-25 08:20] LABS: BG BASE EXCESS 15.7 mmol/L (-2.0-2.0); BG CARBOXYHEMOGLOBIN 0.7 % (0.5-1.5); BG DEOXYHEMOGLOBIN 0.7 % (0.0-5.0); BG HCO3 ACT 43.4 mmol/L (22.0-26.0); BG METHEMOGLOBIN 0.6 % (0.0-1.5); BG OXYGEN SATURATION 99.3 % (92.0-98.5); BG PCO2 74.3 mmHg (35.0-45.0); BG PH 7.384 (7.350-7.450); BG PO2 157.5 mmHg (75.0-100.0); BG SAMPLE SITE RIGHT RADIAL; BG TIDAL VOLUME(mL) 450 mL; BG VENT MODE VENT - A/C; BG VENT RATE 24 set
[2019-09-25] MEDS: METOPROLOL TARTRATE 25MG TABLET PO SCH ×2 (09:00→21:00)
[2019-09-25] MEDS: QUETIAPINE FUMARATE 50MG TABLET PO SCH ×2 (09:08→20:26)
[2019-09-25] MEDS: ZINC SULFATE 220 MG ( 50 ) CAPSULE NG SCH (09:09)
[2019-09-25] MEDS: MIDODRINE HCL 5MG TABLET PO SCH ×3 (09:09→17:05)
[2019-09-25] MEDS: ASCORBIC ACID 500 MG TABLET NG SCH (09:09)
[2019-09-25] MEDS: MULTIVITAMINS,THER W-MINERALS TABLET PO SCH (09:09)
[2019-09-25] MEDS: PHENYLEPHRINE 40 MG in DEXT 5% WATER 246 ML IV PRN ×3 (10:21→19:56)
[2019-09-25] MEDS: MIDAZOLAM HCL 100 MG in DEXT 5% WATER 80 ML IV PRN ×2 (10:37→20:06)
[2019-09-25] MEDS: ENOXAPARIN 40MG/0.4ML SYR SUBCUT SCH (17:05)
[2019-09-26] VITALS (97 sets, daily range): BP systolic 59–157; BP diastolic 37–89
[2019-09-26] MEDS: PIPERACILLIN/TAZOBACTAM 3.375 G in DEXT 5% WATER 100 ML IV SCH ×5 (00:48→23:32)
[2019-09-26] MEDS: PHENYLEPHRINE 40 MG in DEXT 5% WATER 246 ML IV PRN ×3 (01:31→11:19)
[2019-09-26] MEDS: ESMOLOL 2500MG PREMIX 250 ML IV PRN ×3 (01:35→19:47)
[2019-09-26] MEDS: FENTANYL CITRATE/PF 2,500 MCG in SODIUM CHLORIDE 0.9% 200 ML IV PRN ×2 (03:02→11:19)
[2019-09-26] MEDS: MIDAZOLAM HCL 100 MG in DEXT 5% WATER 80 ML IV PRN ×2 (04:51→14:53)
[2019-09-26 05:44] LABS: BASOPHILS % 0.7 % (0.0-2.0); EOSINOPHILS % 8.8 % (0.0-5.0); HEMATOCRIT. 28.9 % (42.0-52.0); HEMOGLOBIN. 9.3 g/dL (14.0-18.0); LYMPHOCYTES % 9.4 % (20.0-50.0); MEAN CORPUSCULAR HEMOGLOBIN 27.6 pg (28.0-32.0); MEAN CORPUSCULAR VOLUME 85.8 fL (80.0-94.0); MEAN PLATELET VOLUME 8.6 fl (7.4-10.4); MONOCYTES % 7.9 % (2.0-8.0); NEUTROPHILS % 73.2 % (40.0-76.0); PLATELET 456 x1000/uL (130-400); RED BLOOD CELL COUNT 3.36 mill/uL (4.7-6.1); RED CELL DISTRIBUTION WIDTH 18.2 % (11.6-14.6)
[2019-09-26 05:54] LABS: CHLORIDE 95 mEq/L (98-107)
[2019-09-26] MEDS: METOPROLOL TARTRATE 25MG TABLET PO SCH ×2 (08:13→20:11)
[2019-09-26] MEDS: ZINC SULFATE 220 MG ( 50 ) CAPSULE NG SCH (08:13)
[2019-09-26] MEDS: MULTIVITAMINS,THER W-MINERALS TABLET PO SCH (08:14)
[2019-09-26] MEDS: QUETIAPINE FUMARATE 50MG TABLET PO SCH ×2 (08:14→20:11)
[2019-09-26] MEDS: ASCORBIC ACID 500 MG TABLET NG SCH (08:14)
[2019-09-26] MEDS: MIDODRINE HCL 5MG TABLET PO SCH ×3 (08:14→17:21)
[2019-09-26 08:38] LABS: BG BASE EXCESS 11.8 mmol/L (-2.0-2.0); BG CARBOXYHEMOGLOBIN 0.3 % (0.5-1.5); BG FRACTION INSPIRED OXYGEN 70; BG HCO3 ACT 39.4 mmol/L (22.0-26.0); BG METHEMOGLOBIN 0.3 % (0.0-1.5); BG OXYHEMOGLOBIN 98.4 % (94.0-97.0); BG PCO2 69.8 mmHg (35.0-45.0); BG PH 7.369 (7.350-7.450); BG PO2 146.5 mmHg (75.0-100.0); BG SAMPLE SITE RIGHT RADIAL; BG TIDAL VOLUME(mL) 450 mL; BG TOTAL HEMOGLOBIN 10.6 g/dL (12.0-18.0); BG VENT MODE PRVC; BG VENT RATE 24 set
[2019-09-26] MEDS: IPRATROPIUM BROMIDE (0.02%) 0.5MG/2.5ML NEB HHN SCH ×4 (10:01→20:35)
[2019-09-26] MEDS: ACETAMINOPHEN 650MG/20.3ML UDC PO PRN (15:14)
[2019-09-26] MEDS: PHENYLEPHRINE 80 MG in DEXT 5% WATER 492 ML IV PRN (15:52)
[2019-09-26] MEDS: ENOXAPARIN 40MG/0.4ML SYR SUBCUT SCH (17:21)
[2019-09-27] VITALS (94 sets, daily range): BP systolic 88–133; BP diastolic 41–96
[2019-09-27] MEDS: IPRATROPIUM BROMIDE (0.02%) 0.5MG/2.5ML NEB HHN SCH ×7 (00:15→20:20)
[2019-09-27] MEDS: MIDAZOLAM HCL 100 MG in DEXT 5% WATER 80 ML IV PRN ×2 (02:24→13:57)
[2019-09-27] MEDS: FENTANYL CITRATE/PF 2,500 MCG in SODIUM CHLORIDE 0.9% 200 ML IV PRN ×2 (02:25→15:53)
[2019-09-27] MEDS: PIPERACILLIN/TAZOBACTAM 3.375 G in DEXT 5% WATER 100 ML IV SCH ×4 (05:25→23:32)
[2019-09-27 05:31] LABS: EOSINOPHILS % 8.5 % (0.0-5.0); HEMOGLOBIN. 9.4 g/dL (14.0-18.0); LYMPHOCYTES % 8.6 % (20.0-50.0); MEAN CORPUSCULAR HEMOGLOBIN 27.3 pg (28.0-32.0); MEAN CORPUSCULAR VOLUME 84.8 fL (80.0-94.0); MEAN PLATELET VOLUME 8.2 fl (7.4-10.4); MONOCYTES % 6.9 % (2.0-8.0); PLATELET 519 x1000/uL (130-400); RED BLOOD CELL COUNT 3.42 mill/uL (4.7-6.1); RED CELL DISTRIBUTION WIDTH 17.8 % (11.6-14.6)
[2019-09-27 05:32] LABS: CHLORIDE 96 mEq/L (98-107)
[2019-09-27] MEDS: PHENYLEPHRINE 80 MG in DEXT 5% WATER 492 ML IV PRN (05:45)
[2019-09-27] MEDS: ESMOLOL 2500MG PREMIX 250 ML IV PRN ×2 (06:33→20:43)
[2019-09-27] MEDS: MULTIVITAMINS,THER W-MINERALS TABLET PO SCH (08:42)
[2019-09-27] MEDS: ZINC SULFATE 220 MG ( 50 ) CAPSULE NG SCH (08:42)
[2019-09-27] MEDS: MIDODRINE HCL 5MG TABLET PO SCH ×3 (08:42→18:15)
[2019-09-27] MEDS: ASCORBIC ACID 500 MG TABLET NG SCH (08:42)
[2019-09-27] MEDS: METOPROLOL TARTRATE 25MG TABLET PO SCH ×2 (08:43→20:38)
[2019-09-27] MEDS: QUETIAPINE FUMARATE 50MG TABLET PO SCH ×2 (08:43→20:37)
[2019-09-27] MEDS: ENOXAPARIN 40MG/0.4ML SYR SUBCUT SCH (18:16)
[2019-09-27] MEDS: FENTANYL 75MCG/HR PATCH TOP SCH (19:11)
[2019-09-28] VITALS (92 sets, daily range): BP systolic 90–144; BP diastolic 40–96
[2019-09-28] MEDS: IPRATROPIUM BROMIDE (0.02%) 0.5MG/2.5ML NEB HHN SCH ×6 (00:15→20:31)
[2019-09-28] MEDS: FENTANYL CITRATE/PF 2,500 MCG in SODIUM CHLORIDE 0.9% 200 ML IV PRN ×3 (00:20→22:09)
[2019-09-28] MEDS: MIDAZOLAM HCL 100 MG in DEXT 5% WATER 80 ML IV PRN ×2 (02:13→21:07)
[2019-09-28] MEDS: PHENYLEPHRINE 80 MG in DEXT 5% WATER 492 ML IV PRN (02:13)
[2019-09-28] MEDS: PIPERACILLIN/TAZOBACTAM 3.375 G in DEXT 5% WATER 100 ML IV SCH ×3 (05:14→17:27)
[2019-09-28 09:18] LABS: BG BASE EXCESS 8.5 mmol/L (-2.0-2.0); BG CARBOXYHEMOGLOBIN 0.3 % (0.5-1.5); BG DEOXYHEMOGLOBIN 6.1 % (0.0-5.0); BG FRACTION INSPIRED OXYGEN 50; BG HCO3 ACT 35.1 mmol/L (22.0-26.0); BG METHEMOGLOBIN 0.6 % (0.0-1.5); BG OXYGEN SATURATION 93.8 % (92.0-98.5); BG PCO2 60.3 mmHg (35.0-45.0); BG PH 7.383 (7.350-7.450); BG PO2 76.2 mmHg (75.0-100.0); BG SAMPLE SITE RIGHT RADIAL; BG TIDAL VOLUME(mL) 450 mL; BG TOTAL HEMOGLOBIN 10.1 g/dL (12.0-18.0); BG VENT MODE VENT- PRVC; BG VENT RATE 24 set
[2019-09-28] MEDS: ASCORBIC ACID 500 MG TABLET NG SCH (09:23)
[2019-09-28] MEDS: ZINC SULFATE 220 MG ( 50 ) CAPSULE NG SCH (09:24)
[2019-09-28] MEDS: METOPROLOL TARTRATE 25MG TABLET PO SCH (09:24)
[2019-09-28] MEDS: QUETIAPINE FUMARATE 50MG TABLET PO SCH ×2 (09:24→19:48)
[2019-09-28] MEDS: MULTIVITAMINS,THER W-MINERALS TABLET PO SCH (09:24)
[2019-09-28] MEDS: MIDODRINE HCL 5MG TABLET PO SCH ×3 (09:24→17:27)
[2019-09-28] MEDS: ESMOLOL 2500MG PREMIX 250 ML IV PRN ×2 (10:23→21:07)
[2019-09-28] MEDS: METOPROLOL TARTRATE 50MG TABLET NG SCH (19:47)
[2019-09-29] VITALS (90 sets, daily range): BP systolic 93–139; BP diastolic 48–93
[2019-09-29] MEDS: CEFEPIME 1,000 MG in DEXTROSE 5% WATER 50 ML IV SCH ×3 (00:34→23:35)
[2019-09-29] MEDS: IPRATROPIUM BROMIDE (0.02%) 0.5MG/2.5ML NEB HHN SCH ×6 (01:03→20:46)
[2019-09-29 05:28] LABS: CHLORIDE 96 mEq/L (98-107)
[2019-09-29 05:30] LABS: INR 1.1; PROTHROMBIN TIME 11.8 sec (9.6-11.0)
[2019-09-29 05:31] LABS: HEMATOCRIT 29.8 % (42.0-52.0); HEMOGLOBIN 9.8 g/dL (14.0-18.0); MEAN CORPUSCULAR VOLUME 85.1 fL (80.0-94.0); PLATELET 506 x1000/uL (130-400); RED BLOOD CELL COUNT 3.51 mill/uL (4.7-6.1); RED CELL DISTRIBUTION WIDTH 17.7 % (11.6-14.6)
[2019-09-29 08:31] LABS: BG BASE EXCESS -0.3 mmol/L (-2.0-2.0); BG CARBOXYHEMOGLOBIN 0.3 % (0.5-1.5); BG DEOXYHEMOGLOBIN 1.9 % (0.0-5.0); BG FRACTION INSPIRED OXYGEN 50; BG METHEMOGLOBIN 0.1 % (0.0-1.5); BG OXYGEN SATURATION 98.1 % (92.0-98.5); BG OXYHEMOGLOBIN 97.7 % (94.0-97.0); BG PCO2 44.2 mmHg (35.0-45.0); BG PH 7.371 (7.350-7.450); BG PO2 108.5 mmHg (75.0-100.0); BG SAMPLE SITE RIGHT RADIAL; BG TIDAL VOLUME(mL) 450 mL; BG VENT MODE VENT- PRVC; BG VENT RATE 24 set
[2019-09-29] MEDS: MIDAZOLAM HCL 100 MG in DEXT 5% WATER 80 ML IV PRN ×2 (09:25→21:01)
[2019-09-29] MEDS: QUETIAPINE FUMARATE 50MG TABLET PO SCH ×2 (09:48→20:27)
[2019-09-29] MEDS: ZINC SULFATE 220 MG ( 50 ) CAPSULE NG SCH (09:49)
[2019-09-29] MEDS: MULTIVITAMINS,THER W-MINERALS TABLET PO SCH (09:49)
[2019-09-29] MEDS: MIDODRINE HCL 5MG TABLET PO SCH ×3 (09:49→17:04)
[2019-09-29] MEDS: METOPROLOL TARTRATE 50MG TABLET NG SCH ×2 (09:50→20:27)
[2019-09-29] MEDS: ASCORBIC ACID 500 MG TABLET NG SCH (09:51)
[2019-09-29] MEDS: ESMOLOL 2500MG PREMIX 250 ML IV PRN ×2 (10:05→20:49)
[2019-09-29] MEDS: FENTANYL CITRATE/PF 2,500 MCG in SODIUM CHLORIDE 0.9% 200 ML IV PRN (11:48)
[2019-09-29] MEDS ORDERED: FENTANYL CITRATE/PF 50MCG/ML 2ML VIAL ONE (16:45)
[2019-09-29] MEDS ORDERED: MIDAZOLAM HCL 5 MG/5 ML VIAL ONE (16:45)
[2019-09-29] MEDS ORDERED: FENTANYL CITRATE/PF 50MCG/ML 2ML VIAL IV PRN (17:06)
[2019-09-29] MEDS ORDERED: MIDAZOLAM HCL 5 MG/5 ML VIAL IV PRN (17:08)
[2019-09-29] MEDS: NYSTATIN POWDER 15GM TOP SCH (20:27)
[2019-09-30] VITALS (96 sets, daily range): BP systolic 81–129; BP diastolic 44–92
[2019-09-30] MEDS: IPRATROPIUM BROMIDE (0.02%) 0.5MG/2.5ML NEB HHN SCH ×6 (00:37→20:34)
[2019-09-30] MEDS: ESMOLOL 2500MG PREMIX 250 ML IV PRN ×3 (02:05→21:35)
[2019-09-30] MEDS: FENTANYL CITRATE/PF 2,500 MCG in SODIUM CHLORIDE 0.9% 200 ML IV PRN (04:24)
[2019-09-30 05:57] LABS: BASOPHILS % 0.9 % (0.0-2.0); EOSINOPHILS % 1.6 % (0.0-5.0); HEMATOCRIT. 28.1 % (42.0-52.0); HEMOGLOBIN. 9.1 g/dL (14.0-18.0); LYMPHOCYTES % 9.2 % (20.0-50.0); MEAN CORPUSCULAR HEMOGLOBIN 27.2 pg (28.0-32.0); MEAN CORPUSCULAR VOLUME 83.9 fL (80.0-94.0); MEAN PLATELET VOLUME 8.6 fl (7.4-10.4); MONOCYTES % 6.4 % (2.0-8.0); NEUTROPHILS % 81.9 % (40.0-76.0); PLATELET 493 x1000/uL (130-400); RED BLOOD CELL COUNT 3.36 mill/uL (4.7-6.1); RED CELL DISTRIBUTION WIDTH 17.9 % (11.6-14.6)
[2019-09-30 06:00] LABS: CHLORIDE 93 mEq/L (98-107)
[2019-09-30] MEDS: MIDAZOLAM HCL 100 MG in DEXT 5% WATER 80 ML IV PRN (09:28)
[2019-09-30 10:05] LABS: BG BASE EXCESS 11.9 mmol/L (-2.0-2.0); BG CARBOXYHEMOGLOBIN 0.2 % (0.5-1.5); BG DEOXYHEMOGLOBIN 2.5 % (0.0-5.0); BG FRACTION INSPIRED OXYGEN 50; BG HCO3 ACT 37.7 mmol/L (22.0-26.0); BG METHEMOGLOBIN 0.3 % (0.0-1.5); BG OXYGEN SATURATION 97.5 % (92.0-98.5); BG PCO2 55.8 mmHg (35.0-45.0); BG PH 7.447 (7.350-7.450); BG PO2 98.1 mmHg (75.0-100.0); BG SAMPLE SITE RIGHT RADIAL; BG TIDAL VOLUME(mL) 450 mL; BG TOTAL HEMOGLOBIN 10.1 g/dL (12.0-18.0); BG VENT MODE VENT- PRVC; BG VENT RATE 20 set
[2019-09-30] MEDS: MULTIVITAMINS,THER W-MINERALS TABLET PO SCH (11:18)
[2019-09-30] MEDS: MIDODRINE HCL 5MG TABLET PO SCH ×3 (11:19→17:28)
[2019-09-30] MEDS: QUETIAPINE FUMARATE 50MG TABLET PO SCH ×2 (11:19→20:02)
[2019-09-30] MEDS: ZINC SULFATE 220 MG ( 50 ) CAPSULE NG SCH (11:20)
[2019-09-30] MEDS: NYSTATIN POWDER 15GM TOP SCH ×2 (11:20→20:08)
[2019-09-30] MEDS: ASCORBIC ACID 500 MG TABLET NG SCH (11:20)
[2019-09-30] MEDS: CEFEPIME 1,000 MG in DEXTROSE 5% WATER 50 ML IV SCH ×2 (11:47→23:40)
[2019-09-30] MEDS: ENOXAPARIN 40MG/0.4ML SYR SUBCUT SCH (17:00)
[2019-09-30] MEDS: METOPROLOL TARTRATE 25MG TABLET NG SCH (20:05)
[2019-09-30] MEDS: FENTANYL 75MCG/HR PATCH TOP SCH (20:06)
[2019-10-01] VITALS (91 sets, daily range): BP systolic 93–153; BP diastolic 41–110
[2019-10-01] MEDS: IPRATROPIUM BROMIDE (0.02%) 0.5MG/2.5ML NEB HHN SCH ×6 (00:22→20:45)
[2019-10-01] MEDS: MIDAZOLAM HCL 100 MG in DEXT 5% WATER 80 ML IV PRN (01:40)
[2019-10-01 09:45] LABS: BG BASE EXCESS -6.3 mmol/L (-2.0-2.0); BG CARBOXYHEMOGLOBIN 0.3 % (0.5-1.5); BG DEOXYHEMOGLOBIN 2.4 % (0.0-5.0); BG FRACTION INSPIRED OXYGEN 50; BG HCO3 ACT 16.8 mmol/L (22.0-26.0); BG METHEMOGLOBIN 1.6 % (0.0-1.5); BG OXYGEN SATURATION 97.6 % (92.0-98.5); BG OXYHEMOGLOBIN 95.7 % (94.0-97.0); BG PCO2 23.1 mmHg (35.0-45.0); BG SAMPLE SITE LEFT RADIAL; BG TIDAL VOLUME(mL) 450 mL; BG TOTAL HEMOGLOBIN 5.2 g/dL (12.0-18.0); BG VENT MODE VENT- PRVC; BG VENT RATE 20 set
[2019-10-01] MEDS: ZINC SULFATE 220 MG ( 50 ) CAPSULE NG SCH (10:11)
[2019-10-01] MEDS: METOPROLOL TARTRATE 25MG TABLET NG SCH (10:11)
[2019-10-01] MEDS: ASCORBIC ACID 500 MG TABLET NG SCH (10:11)
[2019-10-01] MEDS: QUETIAPINE FUMARATE 50MG TABLET PO SCH ×2 (10:11→20:44)
[2019-10-01] MEDS: MIDODRINE HCL 5MG TABLET PO SCH ×3 (10:12→17:28)
[2019-10-01] MEDS: MULTIVITAMINS,THER W-MINERALS TABLET PO SCH (10:12)
[2019-10-01] MEDS: NYSTATIN POWDER 15GM TOP SCH ×2 (10:13→21:00)
[2019-10-01] MEDS: CEFEPIME 1,000 MG in DEXTROSE 5% WATER 50 ML IV SCH ×2 (14:41→23:25)
[2019-10-01] MEDS: VANCOMYCIN HCL 1000 MG/20 ML ORAL GT SCH ×2 (17:28→23:26)
[2019-10-01] MEDS: ENOXAPARIN 40MG/0.4ML SYR SUBCUT SCH (17:28)
[2019-10-01] MEDS: METOPROLOL TARTRATE 100MG TABLET NG SCH (20:44)
[2019-10-01] MEDS: ESMOLOL 2500MG PREMIX 250 ML IV PRN (23:25)
[2019-10-02] VITALS (99 sets, daily range): BP systolic 63–161; BP diastolic 21–103
[2019-10-02] MEDS: IPRATROPIUM BROMIDE (0.02%) 0.5MG/2.5ML NEB HHN SCH ×6 (00:31→20:55)
[2019-10-02] MEDS: VANCOMYCIN HCL 1000 MG/20 ML ORAL GT SCH ×4 (07:15→23:44)
[2019-10-02] MEDS: QUETIAPINE FUMARATE 50MG TABLET PO SCH ×2 (08:01→20:48)
[2019-10-02] MEDS: MIDODRINE HCL 5MG TABLET PO SCH ×3 (08:02→16:12)
[2019-10-02] MEDS: METOPROLOL TARTRATE 100MG TABLET NG SCH ×2 (08:02→20:48)
[2019-10-02] MEDS: ZINC SULFATE 220 MG ( 50 ) CAPSULE NG SCH (08:02)
[2019-10-02] MEDS: ASCORBIC ACID 500 MG TABLET NG SCH (08:02)
[2019-10-02] MEDS: MULTIVITAMINS,THER W-MINERALS TABLET PO SCH (08:02)
[2019-10-02] MEDS: NYSTATIN POWDER 15GM TOP SCH ×2 (08:03→21:09)
[2019-10-02] MEDS ORDERED: LORAZEPAM 2MG/ML CPJ IM PRN (10:15)
[2019-10-02] MEDS: CEFEPIME 1,000 MG in DEXTROSE 5% WATER 50 ML IV SCH ×2 (11:17→23:44)
[2019-10-02 12:01] LABS: HEMATOCRIT. 31.3 % (42.0-52.0); MEAN CORPUSCULAR HEMOGLOBIN 26.5 pg (28.0-32.0); MEAN CORPUSCULAR VOLUME 83.3 fL (80.0-94.0); MEAN PLATELET VOLUME 8.3 fl (7.4-10.4); PLATELET 569 x1000/uL (130-400); RED BLOOD CELL COUNT 3.76 mill/uL (4.7-6.1); RED CELL DISTRIBUTION WIDTH 17.5 % (11.6-14.6)
[2019-10-02 12:07] LABS: CHLORIDE 100 mEq/L (98-107)
[2019-10-02 12:24] LABS: PLATELET ESTIMATE INCREASED
[2019-10-02] MEDS: ONDANSETRON HCL 4MG/2ML INJ IV PRN ×2 (13:20→21:12)
[2019-10-02 13:45] LABS: BG BASE EXCESS 8.7 mmol/L (-2.0-2.0); BG CARBOXYHEMOGLOBIN 0.3 % (0.5-1.5); BG DEOXYHEMOGLOBIN 4.3 % (0.0-5.0); BG FRACTION INSPIRED OXYGEN 40; BG HCO3 ACT 33.9 mmol/L (22.0-26.0); BG METHEMOGLOBIN 0.4 % (0.0-1.5); BG OXYGEN SATURATION 95.7 % (92.0-98.5); BG PCO2 49.9 mmHg (35.0-45.0); BG PO2 81.5 mmHg (75.0-100.0); BG SAMPLE SITE RIGHT BRACHIAL; BG TIDAL VOLUME(mL) 450 mL; BG TOTAL HEMOGLOBIN 11.1 g/dL (12.0-18.0); BG VENT MODE PRVC; BG VENT RATE 16 set
[2019-10-02] MEDS: LORAZEPAM 2MG/ML CPJ IV PRN ×2 (13:47→19:36)
[2019-10-02] MEDS: ENOXAPARIN 40MG/0.4ML SYR SUBCUT SCH (16:13)
[2019-10-02] MEDS: ESMOLOL 2500MG PREMIX 250 ML IV PRN (21:51)
[2019-10-03] VITALS (97 sets, daily range): BP systolic 78–142; BP diastolic 45–102
[2019-10-03] MEDS: IPRATROPIUM BROMIDE (0.02%) 0.5MG/2.5ML NEB HHN SCH ×6 (00:50→20:55)
[2019-10-03] MEDS: ESMOLOL 2500MG PREMIX 250 ML IV PRN ×2 (03:11→12:20)
[2019-10-03] MEDS: FENTANYL CITRATE/PF 2,500 MCG in SODIUM CHLORIDE 0.9% 200 ML IV PRN (05:12)
[2019-10-03 06:13] LABS: CHLORIDE 99 mEq/L (98-107)
[2019-10-03 06:14] LABS: HEMOGLOBIN. 9.9 g/dL (14.0-18.0); MEAN CORPUSCULAR VOLUME 84.5 fL (80.0-94.0); MEAN PLATELET VOLUME 8.7 fl (7.4-10.4); PLATELET 572 x1000/uL (130-400); RED BLOOD CELL COUNT 3.67 mill/uL (4.7-6.1); RED CELL DISTRIBUTION WIDTH 17.7 % (11.6-14.6)
[2019-10-03] MEDS: VANCOMYCIN HCL 1000 MG/20 ML ORAL GT SCH ×3 (07:07→17:02)
[2019-10-03] MEDS: ONDANSETRON HCL 4MG/2ML INJ IV PRN ×2 (07:08→17:02)
[2019-10-03] MEDS: MULTIVITAMINS,THER W-MINERALS TABLET PO SCH (08:06)
[2019-10-03] MEDS: QUETIAPINE FUMARATE 50MG TABLET PO SCH ×2 (08:06→20:13)
[2019-10-03] MEDS: MIDODRINE HCL 5MG TABLET PO SCH ×3 (08:06→17:03)
[2019-10-03] MEDS: ZINC SULFATE 220 MG ( 50 ) CAPSULE NG SCH (08:06)
[2019-10-03] MEDS: ASCORBIC ACID 500 MG TABLET NG SCH (08:06)
[2019-10-03] MEDS: METOPROLOL TARTRATE 100MG TABLET NG SCH ×2 (08:07→20:13)
[2019-10-03] MEDS: NYSTATIN POWDER 15GM TOP SCH ×2 (08:10→21:00)
[2019-10-03 10:08] LABS: PLATELET ESTIMATE INCREASED
[2019-10-03] MEDS: SUCRALFATE 1 G/10 ML UDC PO SCH ×3 (12:19→20:12)
[2019-10-03] MEDS: CEFEPIME 1,000 MG in DEXTROSE 5% WATER 50 ML IV SCH (12:19)
[2019-10-03] MEDS: ENOXAPARIN 40MG/0.4ML SYR SUBCUT SCH (17:02)
[2019-10-03] MEDS: FENTANYL 75MCG/HR PATCH TOP SCH (18:24)
[2019-10-04] VITALS (93 sets, daily range): BP systolic 90–141; BP diastolic 52–96
[2019-10-04] MEDS: VANCOMYCIN HCL 1000 MG/20 ML ORAL GT SCH ×4 (00:09→17:52)
[2019-10-04] MEDS: ESMOLOL 2500MG PREMIX 250 ML IV PRN (00:11)
[2019-10-04] MEDS: IPRATROPIUM BROMIDE (0.02%) 0.5MG/2.5ML NEB HHN SCH ×7 (00:16→23:57)
[2019-10-04] MEDS: CEFEPIME 1,000 MG in DEXTROSE 5% WATER 50 ML IV SCH ×2 (00:18→11:52)
[2019-10-04 05:44] LABS: HEMATOCRIT. 29.6 % (42.0-52.0); HEMOGLOBIN. 9.7 g/dL (14.0-18.0); MEAN CORPUSCULAR HEMOGLOBIN 27.2 pg (28.0-32.0); MEAN CORPUSCULAR VOLUME 83.5 fL (80.0-94.0); MEAN PLATELET VOLUME 8.7 fl (7.4-10.4); PLATELET 500 x1000/uL (130-400); RED BLOOD CELL COUNT 3.55 mill/uL (4.7-6.1); RED CELL DISTRIBUTION WIDTH 17.5 % (11.6-14.6)
[2019-10-04 05:48] LABS: CHLORIDE 99 mEq/L (98-107)
[2019-10-04] MEDS: SUCRALFATE 1 G/10 ML UDC PO SCH ×4 (06:35→20:51)
[2019-10-04] MEDS: ASCORBIC ACID 500 MG TABLET NG SCH (08:21)
[2019-10-04] MEDS: MIDODRINE HCL 5MG TABLET PO SCH ×3 (08:21→17:51)
[2019-10-04] MEDS: METOPROLOL TARTRATE 100MG TABLET NG SCH ×2 (08:21→20:47)
[2019-10-04] MEDS: MULTIVITAMINS,THER W-MINERALS TABLET PO SCH (08:21)
[2019-10-04] MEDS: PANTOPRAZOLE SODIUM 40 MG/VIAL IV SCH (08:21)
[2019-10-04] MEDS: ZINC SULFATE 220 MG ( 50 ) CAPSULE NG SCH (08:21)
[2019-10-04] MEDS: QUETIAPINE FUMARATE 50MG TABLET PO SCH ×2 (08:22→20:47)
[2019-10-04] MEDS: NYSTATIN POWDER 15GM TOP SCH ×2 (08:22→20:52)
[2019-10-04 11:19] LABS: PLATELET ESTIMATE INCREASED
[2019-10-04] MEDS: ENOXAPARIN 40MG/0.4ML SYR SUBCUT SCH (17:51)
[2019-10-04] MEDS: HYDROCODONE/ACETAMINOPHEN 5/325MG TABLET PO PRN (20:51)
[2019-10-05] VITALS (96 sets, daily range): BP systolic 100–137; BP diastolic 48–113
[2019-10-05] MEDS: VANCOMYCIN HCL 1000 MG/20 ML ORAL GT SCH ×5 (00:37→23:27)
[2019-10-05] MEDS: HYDROCODONE/ACETAMINOPHEN 5/325MG TABLET PO PRN ×4 (02:26→21:36)
[2019-10-05] MEDS: IPRATROPIUM BROMIDE (0.02%) 0.5MG/2.5ML NEB HHN SCH ×6 (04:04→20:20)
[2019-10-05 05:19] LABS: CHLORIDE 99 mEq/L (98-107)
[2019-10-05 05:27] LABS: BASOPHILS % 0.7 % (0.0-2.0); EOSINOPHILS % 5.8 % (0.0-5.0); HEMATOCRIT. 29.9 % (42.0-52.0); HEMOGLOBIN. 9.8 g/dL (14.0-18.0); LYMPHOCYTES % 10.6 % (20.0-50.0); MEAN CORPUSCULAR HEMOGLOBIN 27.4 pg (28.0-32.0); MEAN CORPUSCULAR VOLUME 83.4 fL (80.0-94.0); MEAN PLATELET VOLUME 8.6 fl (7.4-10.4); MONOCYTES % 8.3 % (2.0-8.0); NEUTROPHILS % 74.6 % (40.0-76.0); PLATELET 491 x1000/uL (130-400); RED BLOOD CELL COUNT 3.58 mill/uL (4.7-6.1)
[2019-10-05] MEDS: SUCRALFATE 1 G/10 ML UDC PO SCH ×4 (06:30→20:19)
[2019-10-05] MEDS: QUETIAPINE FUMARATE 50MG TABLET PO SCH ×2 (08:50→20:19)
[2019-10-05] MEDS: ZINC SULFATE 220 MG ( 50 ) CAPSULE NG SCH (08:50)
[2019-10-05] MEDS: PANTOPRAZOLE SODIUM 40 MG/VIAL IV SCH (08:50)
[2019-10-05] MEDS: MULTIVITAMINS,THER W-MINERALS TABLET PO SCH (08:51)
[2019-10-05] MEDS: ASCORBIC ACID 500 MG TABLET NG SCH (08:51)
[2019-10-05] MEDS: METOPROLOL TARTRATE 100MG TABLET NG SCH ×2 (08:51→20:19)
[2019-10-05] MEDS: MIDODRINE HCL 5MG TABLET PO SCH ×3 (08:51→16:34)
[2019-10-05] MEDS: NYSTATIN POWDER 15GM TOP SCH ×2 (08:52→20:20)
[2019-10-05] MEDS: ENOXAPARIN 40MG/0.4ML SYR SUBCUT SCH (16:35)
[2019-10-06] VITALS (76 sets, daily range): BP systolic 92–139; BP diastolic 59–105
[2019-10-06] MEDS: IPRATROPIUM BROMIDE (0.02%) 0.5MG/2.5ML NEB HHN SCH ×5 (00:54→20:37)
[2019-10-06] MEDS: HYDROCODONE/ACETAMINOPHEN 5/325MG TABLET PO PRN ×2 (02:19→08:20)
[2019-10-06] MEDS: VANCOMYCIN HCL 1000 MG/20 ML ORAL GT SCH ×4 (05:33→23:57)
[2019-10-06] MEDS: SUCRALFATE 1 G/10 ML UDC PO SCH ×4 (05:33→20:43)
[2019-10-06] MEDS: ONDANSETRON HCL 4MG/2ML INJ IV PRN (08:19)
[2019-10-06] MEDS: MULTIVITAMINS,THER W-MINERALS TABLET PO SCH (08:19)
[2019-10-06] MEDS: PANTOPRAZOLE SODIUM 40 MG/VIAL IV SCH (08:19)
[2019-10-06] MEDS: ASCORBIC ACID 500 MG TABLET NG SCH (08:20)
[2019-10-06] MEDS: MIDODRINE HCL 5MG TABLET PO SCH ×3 (08:20→16:49)
[2019-10-06] MEDS: ZINC SULFATE 220 MG ( 50 ) CAPSULE NG SCH (08:20)
[2019-10-06] MEDS: QUETIAPINE FUMARATE 50MG TABLET PO SCH ×2 (08:20→20:44)
[2019-10-06] MEDS: METOPROLOL TARTRATE 100MG TABLET NG SCH ×2 (08:20→20:44)
[2019-10-06] MEDS: NYSTATIN POWDER 15GM TOP SCH ×2 (08:21→20:51)
[2019-10-06 08:22] LABS: BG BASE EXCESS 5.7 mmol/L (-2.0-2.0); BG FRACTION INSPIRED OXYGEN 40; BG PCO2 42.2 mmHg (35.0-45.0); BG PO2 84.5 mmHg (75.0-100.0); BG SAMPLE SITE LEFT RADIAL; BG TIDAL VOLUME(mL) 500 mL; BG VENT MODE VENT - A/C; BG VENT RATE 12 set
[2019-10-06] MEDS ORDERED: LIDOCAINE HCL/PF 1% 2ML VIAL ONE (11:52)
[2019-10-06] MEDS: ENOXAPARIN 40MG/0.4ML SYR SUBCUT SCH (16:49)
[2019-10-07] VITALS (15 sets, daily range): BP systolic 101–139; BP diastolic 67–99
[2019-10-07] MEDS: IPRATROPIUM BROMIDE (0.02%) 0.5MG/2.5ML NEB HHN SCH ×6 (00:09→20:49)
[2019-10-07] MEDS: VANCOMYCIN HCL 1000 MG/20 ML ORAL GT SCH ×3 (06:05→18:00)
[2019-10-07] MEDS: ONDANSETRON HCL 4MG/2ML INJ IV PRN ×2 (06:05→09:27)
[2019-10-07] MEDS: SUCRALFATE 1 G/10 ML UDC PO SCH ×4 (06:14→21:31)
[2019-10-07] MEDS: NYSTATIN POWDER 15GM TOP SCH ×2 (08:57→21:32)
[2019-10-07] MEDS: QUETIAPINE FUMARATE 50MG TABLET PO SCH ×2 (08:59→21:31)
[2019-10-07] MEDS: MIDODRINE HCL 5MG TABLET PO SCH ×3 (09:00→17:56)
[2019-10-07] MEDS: ZINC SULFATE 220 MG ( 50 ) CAPSULE NG SCH (09:00)
[2019-10-07] MEDS: MULTIVITAMINS,THER W-MINERALS TABLET PO SCH (09:00)
[2019-10-07] MEDS: METOPROLOL TARTRATE 100MG TABLET NG SCH ×2 (09:01→21:32)
[2019-10-07] MEDS: ASCORBIC ACID 500 MG TABLET NG SCH (09:01)
[2019-10-07] MEDS: PANTOPRAZOLE SODIUM 40 MG/VIAL IV SCH (09:01)
[2019-10-07 09:21] LABS: BG BASE EXCESS 6.8 mmol/L (-2.0-2.0); BG CARBOXYHEMOGLOBIN 0.3 % (0.5-1.5); BG DEOXYHEMOGLOBIN 1.8 % (0.0-5.0); BG FRACTION INSPIRED OXYGEN 40; BG HCO3 ACT 31.3 mmol/L (22.0-26.0); BG METHEMOGLOBIN 0.1 % (0.0-1.5); BG OXYGEN SATURATION 98.2 % (92.0-98.5); BG OXYHEMOGLOBIN 97.8 % (94.0-97.0); BG PCO2 44.3 mmHg (35.0-45.0); BG PH 7.467 (7.350-7.450); BG PRESSURE SUPPORT 16; BG SAMPLE SITE RIGHT RADIAL; BG TIDAL VOLUME(mL) 500 mL; BG TOTAL HEMOGLOBIN 10.4 g/dL (12.0-18.0); BG VENT MODE VENT - SIMV; BG VENT RATE 10 set
[2019-10-07] MEDS ORDERED: LIDOCAINE 1%/EPI 1:100,000 10 ML VIAL IJ SCH (13:00)
[2019-10-07] MEDS ORDERED: MORPHINE SULFATE 2 MG/ML CPJ (NOT FOR IM USE) IV SCH (13:00)
[2019-10-07] MEDS: ENOXAPARIN 40MG/0.4ML SYR SUBCUT SCH (17:58)
[2019-10-08] VITALS (11 sets, daily range): BP systolic 112–131; BP diastolic 68–89
[2019-10-08] MEDS: VANCOMYCIN HCL 1000 MG/20 ML ORAL GT SCH ×4 (00:03→17:24)
[2019-10-08] MEDS: IPRATROPIUM BROMIDE (0.02%) 0.5MG/2.5ML NEB HHN SCH ×6 (00:44→21:48)
[2019-10-08] MEDS: ONDANSETRON HCL 4MG/2ML INJ IV PRN (01:31)
[2019-10-08] MEDS: DILTIAZEM HCL 5MG/ML 5ML VIAL IV PRN ×3 (02:26→21:05)
[2019-10-08] MEDS: HYDROCODONE/ACETAMINOPHEN 5/325MG TABLET PO PRN (02:53)
[2019-10-08 06:17] LABS: CHLORIDE 102 mEq/L (98-107)
[2019-10-08] MEDS: SUCRALFATE 1 G/10 ML UDC PO SCH ×4 (06:23→20:33)
[2019-10-08 06:42] LABS: HEMATOCRIT. 32.1 % (42.0-52.0); HEMOGLOBIN. 10.1 g/dL (14.0-18.0); MEAN CORPUSCULAR HEMOGLOBIN 26.3 pg (28.0-32.0); MEAN CORPUSCULAR VOLUME 83.3 fL (80.0-94.0); MEAN PLATELET VOLUME 8.9 fl (7.4-10.4); PLATELET 579 x1000/uL (130-400); RED BLOOD CELL COUNT 3.85 mill/uL (4.7-6.1); RED CELL DISTRIBUTION WIDTH 17.4 % (11.6-14.6)
[2019-10-08] MEDS ORDERED: MORPHINE SULFATE 2 MG/ML CPJ (NOT FOR IM USE) IV PRN (08:30)
[2019-10-08] MEDS: MIDODRINE HCL 5MG TABLET PO SCH ×3 (09:00→17:17)
[2019-10-08] MEDS: MULTIVITAMINS,THER W-MINERALS TABLET PO SCH (09:40)
[2019-10-08] MEDS: ASCORBIC ACID 500 MG TABLET NG SCH (09:40)
[2019-10-08] MEDS: LORAZEPAM 2MG/ML CPJ IV PRN ×3 (09:40→22:29)
[2019-10-08] MEDS: QUETIAPINE FUMARATE 50MG TABLET PO SCH ×2 (09:40→20:32)
[2019-10-08] MEDS: PANTOPRAZOLE SODIUM 40 MG/VIAL IV SCH (09:40)
[2019-10-08] MEDS: METOPROLOL TARTRATE 100MG TABLET NG SCH ×2 (09:41→20:32)
[2019-10-08] MEDS: ZINC SULFATE 220 MG ( 50 ) CAPSULE NG SCH (09:41)
[2019-10-08] MEDS: NYSTATIN POWDER 15GM TOP SCH ×2 (09:42→20:33)
[2019-10-08 11:41] LABS: PLATELET ESTIMATE INCREASED
[2019-10-08] MEDS ORDERED: HYDROCODONE/ACETAMINOPHEN 5/325MG TABLET PO PRN (12:30)
[2019-10-08] MEDS: ENOXAPARIN 40MG/0.4ML SYR SUBCUT SCH (17:18)
[2019-10-08] MEDS ORDERED: FENTANYL 75MCG/HR PATCH TOP SCH (17:59)
[2019-10-08] MEDS ORDERED: LORAZEPAM 2MG/ML CPJ IV NR (20:00)
[2019-10-08] MEDS: OMEPRAZOLE 20MG CAPSULE EXTENDED RELEASE PO SCH (20:33)
[2019-10-08] MEDS ORDERED: ALBUMIN HUMAN 25GM/500ML (5%) IV NR (21:00)
[2019-10-09] VITALS (14 sets, daily range): BP systolic 101–129; BP diastolic 56–80
[2019-10-09] MEDS ORDERED: DILTIAZEM HCL 125 MG in DEXT 5% WATER 100 ML IV PRN ×2
[2019-10-09] MEDS: IPRATROPIUM BROMIDE (0.02%) 0.5MG/2.5ML NEB HHN SCH ×6 (01:10→21:39)
[2019-10-09] MEDS: ACETYLCYSTEINE 100MG/ML 10% VIAL 4ML INH SCH (01:15)
[2019-10-09] MEDS: CEFEPIME 1,000 MG in DEXTROSE 5% WATER 50 ML IV SCH ×2 (01:49→14:32)
[2019-10-09 05:36] LABS: CHLORIDE 101 mEq/L (98-107)
[2019-10-09] MEDS: SUCRALFATE 1 G/10 ML UDC PO SCH ×4 (05:58→20:03)
[2019-10-09] MEDS: OMEPRAZOLE 20MG CAPSULE EXTENDED RELEASE PO SCH ×2 (05:58→20:03)
[2019-10-09 06:16] LABS: BASOPHILS % 0.2 % (0.0-2.0); EOSINOPHILS % 2.1 % (0.0-5.0); HEMATOCRIT. 31.2 % (42.0-52.0); HEMOGLOBIN. 9.9 g/dL (14.0-18.0); LYMPHOCYTES % 7.5 % (20.0-50.0); MEAN CORPUSCULAR HEMOGLOBIN 26.6 pg (28.0-32.0); MEAN CORPUSCULAR VOLUME 83.6 fL (80.0-94.0); MEAN PLATELET VOLUME 9.1 fl (7.4-10.4); MONOCYTES % 5.1 % (2.0-8.0); NEUTROPHILS % 85.1 % (40.0-76.0); PLATELET 471 x1000/uL (130-400); RED BLOOD CELL COUNT 3.73 mill/uL (4.7-6.1); RED CELL DISTRIBUTION WIDTH 17.6 % (11.6-14.6)
[2019-10-09] MEDS: METOPROLOL TARTRATE 100MG TABLET NG SCH ×2 (09:00→20:03)
[2019-10-09] MEDS: QUETIAPINE FUMARATE 50MG TABLET PO SCH ×2 (09:56→20:02)
[2019-10-09] MEDS: ASCORBIC ACID 500 MG TABLET NG SCH (09:57)
[2019-10-09] MEDS: MULTIVITAMINS,THER W-MINERALS TABLET PO SCH (09:57)
[2019-10-09] MEDS: NYSTATIN POWDER 15GM TOP SCH ×2 (09:57→20:03)
[2019-10-09] MEDS: ZINC SULFATE 220 MG ( 50 ) CAPSULE NG SCH (09:57)
[2019-10-09] MEDS: MIDODRINE HCL 5MG TABLET PO SCH ×3 (09:57→18:48)
[2019-10-09 11:43] LABS: BG BASE EXCESS 7.8 mmol/L (-2.0-2.0); BG CARBOXYHEMOGLOBIN 0.3 % (0.5-1.5); BG DEOXYHEMOGLOBIN 4.8 % (0.0-5.0); BG FRACTION INSPIRED OXYGEN 40; BG HCO3 ACT 32.8 mmol/L (22.0-26.0); BG METHEMOGLOBIN 0.5 % (0.0-1.5); BG OXYGEN SATURATION 95.2 % (92.0-98.5); BG OXYHEMOGLOBIN 94.4 % (94.0-97.0); BG PCO2 48.1 mmHg (35.0-45.0); BG PH 7.451 (7.350-7.450); BG PO2 77.9 mmHg (75.0-100.0); BG SAMPLE SITE RIGHT RADIAL; BG TIDAL VOLUME(mL) 500 mL; BG TOTAL HEMOGLOBIN 10.6 g/dL (12.0-18.0); BG VENT MODE VENT - A/C; BG VENT RATE 16 set
[2019-10-09] MEDS: ENOXAPARIN 40MG/0.4ML SYR SUBCUT SCH (18:48)
[2019-10-10] VITALS (13 sets, daily range): BP systolic 103–133; BP diastolic 59–79
[2019-10-10] MEDS: CEFEPIME 1,000 MG in DEXTROSE 5% WATER 50 ML IV SCH (00:11)
[2019-10-10] MEDS: IPRATROPIUM BROMIDE (0.02%) 0.5MG/2.5ML NEB HHN SCH ×6 (01:15→21:05)
[2019-10-10] MEDS: IPRATROPIUM BROMIDE (0.02%) 0.5MG/2.5ML NEB HHN PRN (01:29)
[2019-10-10] MEDS: LORAZEPAM 2MG/ML CPJ IV PRN ×2 (03:30→17:00)
[2019-10-10] MEDS: METOPROLOL TARTRATE 5MG/5ML VIAL IV PRN ×2 (06:10→15:17)
[2019-10-10] MEDS: SUCRALFATE 1 G/10 ML UDC PO SCH ×4 (07:25→21:12)
[2019-10-10] MEDS: ACETAMINOPHEN 650MG/20.3ML UDC PO PRN ×2 (07:25→15:26)
[2019-10-10] MEDS: OMEPRAZOLE 20MG CAPSULE EXTENDED RELEASE PO SCH ×2 (07:25→21:12)
[2019-10-10 07:27] LABS: HEMATOCRIT. 31.1 % (42.0-52.0); MEAN CORPUSCULAR HEMOGLOBIN 26.9 pg (28.0-32.0); MEAN CORPUSCULAR VOLUME 83.5 fL (80.0-94.0); MEAN PLATELET VOLUME 8.8 fl (7.4-10.4); PLATELET 439 x1000/uL (130-400); RED BLOOD CELL COUNT 3.72 mill/uL (4.7-6.1); RED CELL DISTRIBUTION WIDTH 17.5 % (11.6-14.6)
[2019-10-10 07:46] LABS: CHLORIDE 102 mEq/L (98-107)
[2019-10-10] MEDS: QUETIAPINE FUMARATE 50MG TABLET PO SCH ×2 (08:39→21:12)
[2019-10-10] MEDS: MIDODRINE HCL 5MG TABLET PO SCH ×3 (08:39→17:00)
[2019-10-10] MEDS: ZINC SULFATE 220 MG ( 50 ) CAPSULE NG SCH (08:40)
[2019-10-10] MEDS: MULTIVITAMINS,THER W-MINERALS TABLET PO SCH (08:40)
[2019-10-10] MEDS: METOPROLOL TARTRATE 100MG TABLET NG SCH (08:40)
[2019-10-10] MEDS: SULFAMETHOXAZOLE/TRIMETHOPRIM 800/160MG TABLET PO SCH ×2 (08:40→21:12)
[2019-10-10] MEDS: NYSTATIN POWDER 15GM TOP SCH ×2 (08:41→21:13)
[2019-10-10] MEDS: ASCORBIC ACID 500 MG TABLET NG SCH (08:41)
[2019-10-10] MEDS: ACETYLCYSTEINE 100MG/ML 10% VIAL 4ML INH SCH ×2 (08:51→16:56)
[2019-10-10 15:35] LABS: PLATELET ESTIMATE SLIGHTLY INCREASED
[2019-10-10] MEDS: ENOXAPARIN 40MG/0.4ML SYR SUBCUT SCH (17:01)
[2019-10-10] MEDS: ATENOLOL 25MG TABLET PO SCH (17:58)
[2019-10-11] VITALS (12 sets, daily range): BP systolic 107–131; BP diastolic 59–93
[2019-10-11] MEDS: ATENOLOL 25MG TABLET PO SCH ×4 (00:49→17:32)
[2019-10-11] MEDS: IPRATROPIUM BROMIDE (0.02%) 0.5MG/2.5ML NEB HHN SCH ×6 (01:06→21:13)
[2019-10-11] MEDS: ACETYLCYSTEINE 100MG/ML 10% VIAL 4ML INH SCH ×3 (01:06→14:15)
[2019-10-11] MEDS: MIDODRINE HCL 5MG TABLET PO SCH ×3 (08:14→17:33)
[2019-10-11] MEDS: OMEPRAZOLE 20MG CAPSULE EXTENDED RELEASE PO SCH ×2 (08:14→20:51)
[2019-10-11] MEDS: ZINC SULFATE 220 MG ( 50 ) CAPSULE NG SCH (08:14)
[2019-10-11] MEDS: MULTIVITAMINS,THER W-MINERALS TABLET PO SCH (08:14)
[2019-10-11] MEDS: ASCORBIC ACID 500 MG TABLET NG SCH (08:14)
[2019-10-11] MEDS: SULFAMETHOXAZOLE/TRIMETHOPRIM 800/160MG TABLET PO SCH ×2 (08:14→20:51)
[2019-10-11] MEDS: NYSTATIN POWDER 15GM TOP SCH ×2 (08:15→20:53)
[2019-10-11] MEDS: SUCRALFATE 1 G/10 ML UDC PO SCH ×4 (08:15→20:51)
[2019-10-11] MEDS: QUETIAPINE FUMARATE 50MG TABLET PO SCH ×2 (09:00→20:54)
[2019-10-11] MEDS: IPRATROPIUM BROMIDE (0.02%) 0.5MG/2.5ML NEB HHN PRN (14:15)
[2019-10-11] MEDS: ENOXAPARIN 40MG/0.4ML SYR SUBCUT SCH (17:32)
[2019-10-12] VITALS (10 sets, daily range): BP systolic 112–146; BP diastolic 72–92
[2019-10-12] MEDS: ACETYLCYSTEINE 100MG/ML 10% VIAL 4ML INH SCH ×3 (00:28→16:33)
[2019-10-12] MEDS: IPRATROPIUM BROMIDE (0.02%) 0.5MG/2.5ML NEB HHN SCH ×6 (00:28→20:48)
[2019-10-12] MEDS: ATENOLOL 25MG TABLET PO SCH ×4 (04:59→17:40)
[2019-10-12 05:20] LABS: HEMATOCRIT. 29.4 % (42.0-52.0); HEMOGLOBIN. 9.5 g/dL (14.0-18.0); MEAN CORPUSCULAR HEMOGLOBIN 26.8 pg (28.0-32.0); MEAN CORPUSCULAR VOLUME 82.8 fL (80.0-94.0); MEAN PLATELET VOLUME 9.1 fl (7.4-10.4); PLATELET 438 x1000/uL (130-400); RED BLOOD CELL COUNT 3.55 mill/uL (4.7-6.1); RED CELL DISTRIBUTION WIDTH 17.4 % (11.6-14.6)
[2019-10-12] MEDS: ZINC SULFATE 220 MG ( 50 ) CAPSULE NG SCH (08:54)
[2019-10-12] MEDS: SUCRALFATE 1 G/10 ML UDC PO SCH ×4 (08:55→20:25)
[2019-10-12] MEDS: ASCORBIC ACID 500 MG TABLET NG SCH (08:55)
[2019-10-12] MEDS: SULFAMETHOXAZOLE/TRIMETHOPRIM 800/160MG TABLET PO SCH ×2 (08:55→20:25)
[2019-10-12] MEDS: OMEPRAZOLE 20MG CAPSULE EXTENDED RELEASE PO SCH ×2 (08:55→20:25)
[2019-10-12] MEDS: MIDODRINE HCL 5MG TABLET PO SCH ×3 (08:55→17:41)
[2019-10-12] MEDS: MULTIVITAMINS,THER W-MINERALS TABLET PO SCH (08:55)
[2019-10-12] MEDS: NYSTATIN POWDER 15GM TOP SCH ×2 (08:56→20:25)
[2019-10-12] MEDS: QUETIAPINE FUMARATE 50MG TABLET PO SCH ×2 (08:56→20:14)
[2019-10-12 14:40] LABS: PLATELET ESTIMATE INCREASED
[2019-10-12] MEDS: ENOXAPARIN 40MG/0.4ML SYR SUBCUT SCH (17:40)
[2019-10-13] VITALS (12 sets, daily range): BP systolic 109–148; BP diastolic 68–95
[2019-10-13] MEDS: ATENOLOL 25MG TABLET PO SCH ×5 (00:36→23:25)
[2019-10-13] MEDS: ACETYLCYSTEINE 100MG/ML 10% VIAL 4ML INH SCH ×3 (00:47→16:40)
[2019-10-13] MEDS: IPRATROPIUM BROMIDE (0.02%) 0.5MG/2.5ML NEB HHN SCH ×6 (00:47→20:16)
[2019-10-13] MEDS: OMEPRAZOLE 20MG CAPSULE EXTENDED RELEASE PO SCH ×2 (06:42→20:21)
[2019-10-13] MEDS: SUCRALFATE 1 G/10 ML UDC PO SCH ×4 (06:42→20:21)
[2019-10-13 08:43] LABS: BG BASE EXCESS 3.1 mmol/L (-2.0-2.0); BG CARBOXYHEMOGLOBIN 0.3 % (0.5-1.5); BG DEOXYHEMOGLOBIN 3.3 % (0.0-5.0); BG FRACTION INSPIRED OXYGEN 40; BG HCO3 ACT 28.1 mmol/L (22.0-26.0); BG METHEMOGLOBIN 0.3 % (0.0-1.5); BG OXYGEN SATURATION 96.7 % (92.0-98.5); BG OXYHEMOGLOBIN 96.1 % (94.0-97.0); BG PH 7.414 (7.350-7.450); BG PO2 87.9 mmHg (75.0-100.0); BG PRESSURE SUPPORT 12; BG SAMPLE SITE RIGHT BRACHIAL; BG TIDAL VOLUME(mL) 500 mL; BG TOTAL HEMOGLOBIN 10.8 g/dL (12.0-18.0); BG VENT MODE VENT - SIMV; BG VENT RATE 6 set
[2019-10-13] MEDS: MIDODRINE HCL 5MG TABLET PO SCH ×3 (08:58→17:00)
[2019-10-13] MEDS: ZINC SULFATE 220 MG ( 50 ) CAPSULE NG SCH (08:58)
[2019-10-13] MEDS: SULFAMETHOXAZOLE/TRIMETHOPRIM 800/160MG TABLET PO SCH ×2 (08:58→20:21)
[2019-10-13] MEDS: MULTIVITAMINS,THER W-MINERALS TABLET PO SCH (08:58)
[2019-10-13] MEDS: ASCORBIC ACID 500 MG TABLET NG SCH (08:59)
[2019-10-13] MEDS: NYSTATIN POWDER 15GM TOP SCH (08:59)
[2019-10-13] MEDS: ENOXAPARIN 40MG/0.4ML SYR SUBCUT SCH (17:23)
[2019-10-13] MEDS: QUETIAPINE FUMARATE 50MG TABLET PO SCH (20:19)
[2019-10-13] MEDS: ACETAMINOPHEN 650MG/20.3ML UDC PO PRN (20:19)
[2019-10-14] VITALS (12 sets, daily range): BP systolic 108–136; BP diastolic 66–82
[2019-10-14] MEDS: IPRATROPIUM BROMIDE (0.02%) 0.5MG/2.5ML NEB HHN SCH ×6 (00:27→20:23)
[2019-10-14] MEDS: ACETYLCYSTEINE 100MG/ML 10% VIAL 4ML INH SCH ×2 (00:27→08:15)
[2019-10-14] MEDS: ACETAMINOPHEN 650MG/20.3ML UDC PO PRN ×2 (03:41→21:56)
[2019-10-14] MEDS: ATENOLOL 25MG TABLET PO SCH ×3 (05:26→18:26)
[2019-10-14 09:28] LABS: BG BASE EXCESS 7.6 mmol/L (-2.0-2.0); BG CARBOXYHEMOGLOBIN 0.3 % (0.5-1.5); BG DEOXYHEMOGLOBIN 1.7 % (0.0-5.0); BG FRACTION INSPIRED OXYGEN 40; BG HCO3 ACT 32.3 mmol/L (22.0-26.0); BG METHEMOGLOBIN 0.3 % (0.0-1.5); BG OXYGEN SATURATION 98.3 % (92.0-98.5); BG OXYHEMOGLOBIN 97.7 % (94.0-97.0); BG PCO2 46.3 mmHg (35.0-45.0); BG PH 7.462 (7.350-7.450); BG PO2 115.7 mmHg (75.0-100.0); BG PRESSURE SUPPORT 12; BG SAMPLE SITE RIGHT RADIAL; BG TIDAL VOLUME(mL) 500 mL; BG TOTAL HEMOGLOBIN 11.1 g/dL (12.0-18.0); BG VENT MODE VENT - SIMV; BG VENT RATE 8 set
[2019-10-14] MEDS: SUCRALFATE 1 G/10 ML UDC PO SCH ×4 (09:31→20:50)
[2019-10-14] MEDS: ZINC SULFATE 220 MG ( 50 ) CAPSULE NG SCH (09:31)
[2019-10-14] MEDS: ASCORBIC ACID 500 MG TABLET NG SCH (09:32)
[2019-10-14] MEDS: QUETIAPINE FUMARATE 50MG TABLET PO SCH ×2 (09:32→21:00)
[2019-10-14] MEDS: SULFAMETHOXAZOLE/TRIMETHOPRIM 800/160MG TABLET PO SCH ×2 (09:32→20:50)
[2019-10-14] MEDS: MIDODRINE HCL 5MG TABLET PO SCH ×3 (09:32→18:26)
[2019-10-14] MEDS: OMEPRAZOLE 20MG CAPSULE EXTENDED RELEASE PO SCH ×2 (09:32→20:50)
[2019-10-14] MEDS: MULTIVITAMINS,THER W-MINERALS TABLET PO SCH (09:32)
[2019-10-14] MEDS: ENOXAPARIN 40MG/0.4ML SYR SUBCUT SCH (18:25)
[2019-10-15] VITALS (9 sets, daily range): BP systolic 106–126; BP diastolic 64–88
[2019-10-15] MEDS: IPRATROPIUM BROMIDE (0.02%) 0.5MG/2.5ML NEB HHN SCH ×5 (00:23→20:36)
[2019-10-15] MEDS: QUETIAPINE FUMARATE 50MG TABLET PO SCH ×3 (02:29→22:36)
[2019-10-15 08:00] LABS: BASOPHILS % 0.3 % (0.0-2.0); EOSINOPHILS % 2.9 % (0.0-5.0); HEMATOCRIT. 32.4 % (42.0-52.0); HEMOGLOBIN. 10.3 g/dL (14.0-18.0); LYMPHOCYTES % 8.9 % (20.0-50.0); MEAN CORPUSCULAR HEMOGLOBIN 26.2 pg (28.0-32.0); MEAN CORPUSCULAR VOLUME 82.8 fL (80.0-94.0); MEAN PLATELET VOLUME 9.3 fl (7.4-10.4); MONOCYTES % 4.8 % (2.0-8.0); NEUTROPHILS % 83.1 % (40.0-76.0); PLATELET 384 x1000/uL (130-400); RED BLOOD CELL COUNT 3.91 mill/uL (4.7-6.1); RED CELL DISTRIBUTION WIDTH 17.7 % (11.6-14.6)
[2019-10-15] MEDS: SULFAMETHOXAZOLE/TRIMETHOPRIM 800/160MG TABLET PO SCH ×2 (08:57→20:22)
[2019-10-15] MEDS: MULTIVITAMINS,THER W-MINERALS TABLET PO SCH (08:57)
[2019-10-15] MEDS: OMEPRAZOLE 20MG CAPSULE EXTENDED RELEASE PO SCH ×2 (08:58→20:21)
[2019-10-15] MEDS: SUCRALFATE 1 G/10 ML UDC PO SCH ×4 (08:59→20:21)
[2019-10-15] MEDS: MIDODRINE HCL 5MG TABLET PO SCH (08:59)
[2019-10-15] MEDS: ASCORBIC ACID 500 MG TABLET NG SCH (08:59)
[2019-10-15] MEDS: ZINC SULFATE 220 MG ( 50 ) CAPSULE NG SCH (08:59)
[2019-10-15] MEDS: ACETAMINOPHEN 650MG/20.3ML UDC PO PRN ×2 (12:21→20:21)
[2019-10-15] MEDS: ATENOLOL 25MG TABLET PO SCH ×3 (12:24→18:34)
[2019-10-15] MEDS: ENOXAPARIN 40MG/0.4ML SYR SUBCUT SCH (18:33)
[2019-10-16] VITALS (12 sets, daily range): BP systolic 101–125; BP diastolic 7–85
[2019-10-16] MEDS: IPRATROPIUM BROMIDE (0.02%) 0.5MG/2.5ML NEB HHN SCH ×7 (00:37→20:07)
[2019-10-16] MEDS: ATENOLOL 25MG TABLET PO SCH ×4 (06:00→18:25)
[2019-10-16] MEDS: SUCRALFATE 1 G/10 ML UDC PO SCH ×4 (08:33→21:01)
[2019-10-16] MEDS: QUETIAPINE FUMARATE 50MG TABLET PO SCH ×2 (08:33→21:02)
[2019-10-16] MEDS: SULFAMETHOXAZOLE/TRIMETHOPRIM 800/160MG TABLET PO SCH ×2 (08:34→21:01)
[2019-10-16] MEDS: ZINC SULFATE 220 MG ( 50 ) CAPSULE NG SCH (08:34)
[2019-10-16] MEDS: ASCORBIC ACID 500 MG TABLET NG SCH (08:34)
[2019-10-16] MEDS: OMEPRAZOLE 20MG CAPSULE EXTENDED RELEASE PO SCH ×2 (08:34→21:01)
[2019-10-16] MEDS: MULTIVITAMINS,THER W-MINERALS TABLET PO SCH (08:34)
[2019-10-16 09:11] LABS: BG BASE EXCESS 7.5 mmol/L (-2.0-2.0); BG CARBOXYHEMOGLOBIN 0.3 % (0.5-1.5); BG FRACTION INSPIRED OXYGEN 40; BG HCO3 ACT 32.1 mmol/L (22.0-26.0); BG METHEMOGLOBIN 0.5 % (0.0-1.5); BG OXYHEMOGLOBIN 98.2 % (94.0-97.0); BG PCO2 45.7 mmHg (35.0-45.0); BG PH 7.465 (7.350-7.450); BG PO2 163.2 mmHg (75.0-100.0); BG PRESSURE SUPPORT 12; BG SAMPLE SITE RIGHT RADIAL; BG TOTAL HEMOGLOBIN 11.4 g/dL (12.0-18.0); BG VENT MODE VENT - CPAP
[2019-10-16] MEDS: ENOXAPARIN 40MG/0.4ML SYR SUBCUT SCH (18:25)
[2019-10-16] MEDS: ACETAMINOPHEN 650MG/20.3ML UDC PO PRN (21:01)
[2019-10-17] VITALS (12 sets, daily range): BP systolic 110–129; BP diastolic 66–92
[2019-10-17] MEDS: IPRATROPIUM BROMIDE (0.02%) 0.5MG/2.5ML NEB HHN SCH ×6 (00:02→21:07)
[2019-10-17] MEDS: ATENOLOL 25MG TABLET PO SCH ×4 (06:00→17:20)
[2019-10-17] MEDS: SULFAMETHOXAZOLE/TRIMETHOPRIM 800/160MG TABLET PO SCH (08:26)
[2019-10-17] MEDS: MULTIVITAMINS,THER W-MINERALS TABLET PO SCH (08:26)
[2019-10-17] MEDS: OMEPRAZOLE 20MG CAPSULE EXTENDED RELEASE PO SCH ×2 (08:26→21:01)
[2019-10-17] MEDS: ASCORBIC ACID 500 MG TABLET NG SCH (08:26)
[2019-10-17] MEDS: ZINC SULFATE 220 MG ( 50 ) CAPSULE NG SCH (08:26)
[2019-10-17] MEDS: SUCRALFATE 1 G/10 ML UDC PO SCH ×4 (08:26→21:00)
[2019-10-17] MEDS: QUETIAPINE FUMARATE 50MG TABLET PO SCH ×2 (09:00→21:01)
[2019-10-17] MEDS ORDERED: SODIUM CHLORIDE 0.9% 500 ML IV SCH (12:45)
[2019-10-17] MEDS: ENOXAPARIN 40MG/0.4ML SYR SUBCUT SCH (16:52)
[2019-10-17] MEDS ORDERED: QUETIAPINE FUMARATE 50MG TABLET PO SCH (21:00)
[2019-10-18] VITALS (18 sets, daily range): BP systolic 100–126; BP diastolic 71–83
[2019-10-18] MEDS: ATENOLOL 25MG TABLET PO SCH ×4 (00:12→17:16)
[2019-10-18] MEDS: IPRATROPIUM BROMIDE (0.02%) 0.5MG/2.5ML NEB HHN SCH ×6 (01:14→20:40)
[2019-10-18 07:18] LABS: BASOPHILS % 0.5 % (0.0-2.0); HEMOGLOBIN. 11.1 g/dL (14.0-18.0); LYMPHOCYTES % 10.7 % (20.0-50.0); MEAN CORPUSCULAR HEMOGLOBIN 26.8 pg (28.0-32.0); MEAN CORPUSCULAR VOLUME 82.4 fL (80.0-94.0); MEAN PLATELET VOLUME 9.2 fl (7.4-10.4); MONOCYTES % 5.4 % (2.0-8.0); NEUTROPHILS % 78.4 % (40.0-76.0); PLATELET 378 x1000/uL (130-400); RED BLOOD CELL COUNT 4.13 mill/uL (4.7-6.1)
[2019-10-18 07:25] LABS: CHLORIDE 102 mEq/L (98-107)
[2019-10-18] MEDS: OMEPRAZOLE 20MG CAPSULE EXTENDED RELEASE PO SCH ×2 (07:30→21:52)
[2019-10-18] MEDS: ZINC SULFATE 220 MG ( 50 ) CAPSULE NG SCH (09:00)
[2019-10-18] MEDS: ASCORBIC ACID 500 MG TABLET NG SCH (09:00)
[2019-10-18] MEDS: MULTIVITAMINS,THER W-MINERALS TABLET PO SCH (09:00)
[2019-10-18] MEDS: SUCRALFATE 1 G/10 ML UDC PO SCH ×4 (11:46→21:52)
[2019-10-18] MEDS: ENOXAPARIN 40MG/0.4ML SYR SUBCUT SCH (17:16)
[2019-10-18] MEDS: QUETIAPINE FUMARATE 50MG TABLET PO SCH (21:52)
[2019-10-19] VITALS (14 sets, daily range): BP systolic 104–121; BP diastolic 65–87
[2019-10-19] MEDS: IPRATROPIUM BROMIDE (0.02%) 0.5MG/2.5ML NEB HHN SCH ×6 (00:15→20:27)
[2019-10-19] MEDS: ATENOLOL 25MG TABLET PO SCH ×5 (00:19→22:51)
[2019-10-19] MEDS: MULTIVITAMINS,THER W-MINERALS TABLET PO SCH (08:44)
[2019-10-19] MEDS: OMEPRAZOLE 20MG CAPSULE EXTENDED RELEASE PO SCH ×2 (08:44→20:21)
[2019-10-19] MEDS: ASCORBIC ACID 500 MG TABLET NG SCH (08:44)
[2019-10-19] MEDS: ZINC SULFATE 220 MG ( 50 ) CAPSULE NG SCH (08:44)
[2019-10-19] MEDS: SUCRALFATE 1 G/10 ML UDC PO SCH ×4 (08:44→20:21)
[2019-10-19 16:23] LABS: BG BASE EXCESS 4.8 mmol/L (-2.0-2.0); BG CARBOXYHEMOGLOBIN 0.3 % (0.5-1.5); BG DEOXYHEMOGLOBIN 10.3 % (0.0-5.0); BG FRACTION INSPIRED OXYGEN 21; BG HCO3 ACT 29.2 mmol/L (22.0-26.0); BG METHEMOGLOBIN 0.2 % (0.0-1.5); BG OXYGEN SATURATION 89.6 % (92.0-98.5); BG OXYHEMOGLOBIN 89.2 % (94.0-97.0); BG PCO2 42.3 mmHg (35.0-45.0); BG PH 7.457 (7.350-7.450); BG PO2 57.3 mmHg (75.0-100.0); BG SAMPLE SITE RIGHT RADIAL; BG TOTAL HEMOGLOBIN 12.3 g/dL (12.0-18.0); BG VENT MODE ROOM AIR
[2019-10-19] MEDS: ENOXAPARIN 40MG/0.4ML SYR SUBCUT SCH (17:53)
[2019-10-19] MEDS: ACETAMINOPHEN 650MG/20.3ML UDC PO PRN (20:14)
[2019-10-19] MEDS: QUETIAPINE FUMARATE 50MG TABLET PO SCH (20:19)
[2019-10-20] VITALS (10 sets, daily range): BP systolic 103–118; BP diastolic 58–80
[2019-10-20] MEDS: IPRATROPIUM BROMIDE (0.02%) 0.5MG/2.5ML NEB HHN SCH ×5 (04:00→11:56)
[2019-10-20] MEDS: ATENOLOL 25MG TABLET PO SCH ×4 (05:33→23:06)
[2019-10-20] MEDS: SUCRALFATE 1 G/10 ML UDC PO SCH ×4 (05:34→20:06)
[2019-10-20] MEDS: OMEPRAZOLE 20MG CAPSULE EXTENDED RELEASE PO SCH ×2 (05:34→20:07)
[2019-10-20] MEDS: ASCORBIC ACID 500 MG TABLET NG SCH (09:08)
[2019-10-20] MEDS: ZINC SULFATE 220 MG ( 50 ) CAPSULE NG SCH (09:08)
[2019-10-20] MEDS: ENOXAPARIN 40MG/0.4ML SYR SUBCUT SCH (17:50)
[2019-10-20] MEDS: POLYVINYL ALCOHOL OPHTH DROPS 15ML BOTHEYE SCH ×2 (17:51→23:15)
[2019-10-20] MEDS: QUETIAPINE FUMARATE 50MG TABLET PO SCH (20:07)
[2019-10-21] VITALS (14 sets, daily range): BP systolic 104–129; BP diastolic 66–83
[2019-10-21] MEDS: IPRATROPIUM BROMIDE (0.02%) 0.5MG/2.5ML NEB HHN SCH ×7 (00:05→23:23)
[2019-10-21] MEDS: POLYVINYL ALCOHOL OPHTH DROPS 15ML BOTHEYE SCH ×4 (06:16→23:39)
[2019-10-21] MEDS: ATENOLOL 25MG TABLET PO SCH ×4 (06:18→23:37)
[2019-10-21] MEDS: ASCORBIC ACID 500 MG TABLET NG SCH (08:36)
[2019-10-21] MEDS: OMEPRAZOLE 20MG CAPSULE EXTENDED RELEASE PO SCH ×2 (08:36→21:38)
[2019-10-21] MEDS: SUCRALFATE 1 G/10 ML UDC PO SCH ×4 (08:36→21:37)
[2019-10-21] MEDS: ZINC SULFATE 220 MG ( 50 ) CAPSULE NG SCH (08:36)
[2019-10-21] MEDS: ENOXAPARIN 40MG/0.4ML SYR SUBCUT SCH ×2 (16:46→17:05)
[2019-10-21] MEDS: QUETIAPINE FUMARATE 50MG TABLET PO SCH (21:37)
[2019-10-22] VITALS (12 sets, daily range): BP systolic 100–127; BP diastolic 62–90
[2019-10-22] MEDS: IPRATROPIUM BROMIDE (0.02%) 0.5MG/2.5ML NEB HHN SCH ×6 (00:21→20:37)
[2019-10-22] MEDS: ATENOLOL 25MG TABLET PO SCH ×4 (06:00→23:47)
[2019-10-22] MEDS: OMEPRAZOLE 20MG CAPSULE EXTENDED RELEASE PO SCH ×2 (06:21→21:35)
[2019-10-22] MEDS: SUCRALFATE 1 G/10 ML UDC PO SCH ×4 (06:21→21:35)
[2019-10-22] MEDS: POLYVINYL ALCOHOL OPHTH DROPS 15ML BOTHEYE SCH ×4 (06:22→23:47)
[2019-10-22] MEDS: ASCORBIC ACID 500 MG TABLET NG SCH (08:01)
[2019-10-22] MEDS: ZINC SULFATE 220 MG ( 50 ) CAPSULE NG SCH (08:01)
[2019-10-22] MEDS: ACETAMINOPHEN 650MG/20.3ML UDC PO PRN (09:36)
[2019-10-22] MEDS: ENOXAPARIN 40MG/0.4ML SYR SUBCUT SCH (17:25)
[2019-10-23] VITALS (10 sets, daily range): BP systolic 110–122; BP diastolic 63–85
[2019-10-23] MEDS: IPRATROPIUM BROMIDE (0.02%) 0.5MG/2.5ML NEB HHN SCH ×5 (04:36→20:18)
[2019-10-23] MEDS: POLYVINYL ALCOHOL OPHTH DROPS 15ML BOTHEYE SCH ×4 (05:55→23:32)
[2019-10-23] MEDS: SUCRALFATE 1 G/10 ML UDC PO SCH ×4 (06:06→21:29)
[2019-10-23] MEDS: OMEPRAZOLE 20MG CAPSULE EXTENDED RELEASE PO SCH ×2 (06:10→21:29)
[2019-10-23] MEDS: ATENOLOL 25MG TABLET PO SCH ×4 (06:30→23:32)
[2019-10-23] MEDS ORDERED: SODIUM CHLORIDE 0.9% 500 ML IV ONE (16:00)
[2019-10-23] MEDS: ENOXAPARIN 40MG/0.4ML SYR SUBCUT SCH (17:46)
[2019-10-24] VITALS (12 sets, daily range): BP systolic 107–123; BP diastolic 66–81
[2019-10-24] MEDS: IPRATROPIUM BROMIDE (0.02%) 0.5MG/2.5ML NEB HHN SCH ×7 (01:00→20:26)
[2019-10-24] MEDS: POLYVINYL ALCOHOL OPHTH DROPS 15ML BOTHEYE SCH ×3 (06:04→17:51)
[2019-10-24] MEDS: ATENOLOL 25MG TABLET PO SCH ×3 (06:04→17:51)
[2019-10-24] MEDS: SUCRALFATE 1 G/10 ML UDC PO SCH ×4 (08:07→21:19)
[2019-10-24] MEDS: OMEPRAZOLE 20MG CAPSULE EXTENDED RELEASE PO SCH ×2 (08:08→21:19)
[2019-10-24] MEDS: ENOXAPARIN 40MG/0.4ML SYR SUBCUT SCH (17:55)
[2019-10-24] MEDS: ACETAMINOPHEN 650MG/20.3ML UDC PO PRN (21:19)
[2019-10-25] VITALS (12 sets, daily range): BP systolic 102–121; BP diastolic 69–78
[2019-10-25] MEDS: POLYVINYL ALCOHOL OPHTH DROPS 15ML BOTHEYE SCH ×4 (00:17→17:05)
[2019-10-25] MEDS: ATENOLOL 25MG TABLET PO SCH ×4 (00:17→17:11)
[2019-10-25] MEDS: SUCRALFATE 1 G/10 ML UDC PO SCH ×4 (06:39→20:40)
[2019-10-25] MEDS: OMEPRAZOLE 20MG CAPSULE EXTENDED RELEASE PO SCH ×2 (06:39→20:40)
[2019-10-25] MEDS: IPRATROPIUM BROMIDE (0.02%) 0.5MG/2.5ML NEB HHN SCH ×3 (07:00→21:17)
[2019-10-25] MEDS: ASCORBIC ACID 500 MG TABLET GT SCH (08:53)
[2019-10-25] MEDS: MULTIVITAMINS,THER W-MINERALS TABLET GT SCH (08:53)
[2019-10-25] MEDS: ZINC SULFATE 220 MG ( 50 ) CAPSULE GT SCH (08:53)
[2019-10-25] MEDS: ENOXAPARIN 40MG/0.4ML SYR SUBCUT SCH (17:12)
[2019-10-26] VITALS (12 sets, daily range): BP systolic 86–125; BP diastolic 69–85
[2019-10-26] MEDS: IPRATROPIUM BROMIDE (0.02%) 0.5MG/2.5ML NEB HHN SCH ×7 (00:38→19:55)
[2019-10-26] MEDS: ATENOLOL 25MG TABLET PO SCH ×4 (05:11→17:20)
[2019-10-26] MEDS: POLYVINYL ALCOHOL OPHTH DROPS 15ML BOTHEYE SCH ×4 (05:11→17:21)
[2019-10-26] MEDS: ZINC SULFATE 220 MG ( 50 ) CAPSULE GT SCH (08:32)
[2019-10-26] MEDS: ASCORBIC ACID 500 MG TABLET GT SCH (08:32)
[2019-10-26] MEDS: MULTIVITAMINS,THER W-MINERALS TABLET GT SCH (08:32)
[2019-10-26] MEDS: OMEPRAZOLE 20MG CAPSULE EXTENDED RELEASE PO SCH ×2 (08:32→21:36)
[2019-10-26] MEDS: SUCRALFATE 1 G/10 ML UDC PO SCH ×4 (08:32→21:36)
[2019-10-26] MEDS ORDERED: ZINC220T4 MT (10:28)
[2019-10-26] MEDS ORDERED: ASCO-339 MT (10:28)
[2019-10-26] MEDS ORDERED: MULT-1116 MT (10:28)
[2019-10-26] MEDS: ENOXAPARIN 40MG/0.4ML SYR SUBCUT SCH (17:19)
[2019-10-27] VITALS (12 sets, daily range): BP systolic 107–123; BP diastolic 70–90
[2019-10-27] MEDS: IPRATROPIUM BROMIDE (0.02%) 0.5MG/2.5ML NEB HHN SCH ×5 (05:11→21:55)
[2019-10-27] MEDS: POLYVINYL ALCOHOL OPHTH DROPS 15ML BOTHEYE SCH ×4 (06:00→17:58)
[2019-10-27] MEDS: ATENOLOL 25MG TABLET PO SCH ×4 (06:00→17:57)
[2019-10-27 07:06] LABS: MEAN CORPUSCULAR HEMOGLOBIN 26.8 pg (28.0-32.0); MEAN CORPUSCULAR VOLUME 80.5 fL (80.0-94.0); PLATELET 288 x1000/uL (130-400); RED CELL DISTRIBUTION WIDTH 18.6 % (11.6-14.6)
[2019-10-27 07:13] LABS: CHLORIDE 101 mEq/L (98-107)
[2019-10-27] MEDS: ASCORBIC ACID 500 MG TABLET GT SCH (08:09)
[2019-10-27] MEDS: ZINC SULFATE 220 MG ( 50 ) CAPSULE GT SCH (08:09)
[2019-10-27] MEDS: SUCRALFATE 1 G/10 ML UDC PO SCH ×4 (08:09→21:14)
[2019-10-27] MEDS: MULTIVITAMINS,THER W-MINERALS TABLET GT SCH (08:09)
[2019-10-27] MEDS: OMEPRAZOLE 20MG CAPSULE EXTENDED RELEASE PO SCH ×2 (08:09→21:14)
[2019-10-27] MEDS: ENOXAPARIN 40MG/0.4ML SYR SUBCUT SCH (17:55)
[2019-10-27] MEDS: ACETAMINOPHEN 650MG/20.3ML UDC PO PRN (20:08)
[2019-10-28] VITALS (13 sets, daily range): BP systolic 107–119; BP diastolic 75–90
[2019-10-28] MEDS: ATENOLOL 25MG TABLET PO SCH ×4 (00:43→18:47)
[2019-10-28] MEDS: IPRATROPIUM BROMIDE (0.02%) 0.5MG/2.5ML NEB HHN SCH ×7 (01:53→23:00)
[2019-10-28] MEDS: POLYVINYL ALCOHOL OPHTH DROPS 15ML BOTHEYE SCH ×4 (06:00→18:00)
[2019-10-28] MEDS: SUCRALFATE 1 G/10 ML UDC PO SCH ×4 (06:40→20:39)
[2019-10-28] MEDS: OMEPRAZOLE 20MG CAPSULE EXTENDED RELEASE PO SCH ×2 (06:41→20:39)
[2019-10-28] MEDS: ZINC SULFATE 220 MG ( 50 ) CAPSULE GT SCH (08:18)
[2019-10-28] MEDS: MULTIVITAMINS,THER W-MINERALS TABLET GT SCH (08:19)
[2019-10-28] MEDS: ASCORBIC ACID 500 MG TABLET GT SCH (08:19)
[2019-10-28] MEDS ORDERED: ALBU18HF2 IH (12:23)
[2019-10-28] MEDS ORDERED: FLUT1DIS3 INH (12:23)
[2019-10-28] MEDS: ENOXAPARIN 40MG/0.4ML SYR SUBCUT SCH (17:25)
[2019-10-28] MEDS: ACETAMINOPHEN 650MG/20.3ML UDC PO PRN (22:06)
[2019-10-29] VITALS (8 sets, daily range): BP systolic 108–118; BP diastolic 69–85
[2019-10-29] MEDS: ATENOLOL 25MG TABLET PO SCH ×2 (00:21→06:47)
[2019-10-29] MEDS: POLYVINYL ALCOHOL OPHTH DROPS 15ML BOTHEYE SCH ×2 (00:21→06:00)
[2019-10-29] MEDS: IPRATROPIUM BROMIDE (0.02%) 0.5MG/2.5ML NEB HHN SCH ×2 (03:21→08:12)
[2019-10-29] MEDS: SUCRALFATE 1 G/10 ML UDC PO SCH (06:47)
[2019-10-29] MEDS: ZINC SULFATE 220 MG ( 50 ) CAPSULE GT SCH (08:09)
[2019-10-29] MEDS: OMEPRAZOLE 20MG CAPSULE EXTENDED RELEASE PO SCH (08:09)
[2019-10-29] MEDS: MULTIVITAMINS,THER W-MINERALS TABLET GT SCH (08:09)
[2019-10-29] MEDS: ASCORBIC ACID 500 MG TABLET GT SCH (08:09)
== END 2019-10-29 10:15 | disposition home health service (06) | DRG 4 ==
LOC: ER 06:30 → EEVIPCON 10:28 → 7EST 10:28 → EDBEDREQTM 10:31 → EDBEDREQ 10:31 → EDBEDREQSVC 10:31 → ENRESERV 11:51 → MICUSO 08-04 15:48 → MICUNO 09-17 03:00 → 5EST 10-06 18:25
PROVIDERS: ADMIT Internal Medicine; ATTEND Internal Medicine
PROC: 5A1955Z Respiratory Ventilation, Greater than 96 Consecutive Hours (ICD-10-PCS; principal; 2019-08-04)
PROC: 0BH17EZ Insertion of Endotracheal Airway into Trachea, Via Natural or Artificial Opening (ICD-10-PCS; 2019-08-04)
PROC: 05HY33Z Insertion of Infusion Device into Upper Vein, Percutaneous Approach (ICD-10-PCS; 2019-08-05)
PROC: B54NZZA Ultrasonography of Left Upper Extremity Veins, Guidance (ICD-10-PCS; 2019-08-05)
PROC: 0W9B00Z Drainage of Left Pleural Cavity with Drainage Device, Open Approach (ICD-10-PCS; 2019-08-07)
PROC: 05HY33Z Insertion of Infusion Device into Upper Vein, Percutaneous Approach (ICD-10-PCS; 2019-08-07)
PROC: B54MZZA Ultrasonography of Right Upper Extremity Veins, Guidance (ICD-10-PCS; 2019-08-07)
PROC: 0W9B30Z Drainage of Left Pleural Cavity with Drainage Device, Percutaneous Approach (ICD-10-PCS; 2019-08-11)
PROC: 05HY33Z Insertion of Infusion Device into Upper Vein, Percutaneous Approach (ICD-10-PCS; 2019-08-19)
PROC: B54MZZA Ultrasonography of Right Upper Extremity Veins, Guidance (ICD-10-PCS; 2019-08-19)
PROC: 0W9900Z Drainage of Right Pleural Cavity with Drainage Device, Open Approach (ICD-10-PCS; 2019-08-24)
PROC: 5A12012 Performance of Cardiac Output, Single, Manual (ICD-10-PCS; 2019-08-29)
PROC: 30233N1 Transfusion of Nonautologous Red Blood Cells into Peripheral Vein, Percutaneous Approach (ICD-10-PCS; 2019-08-30)
PROC: 0BH17EZ Insertion of Endotracheal Airway into Trachea, Via Natural or Artificial Opening (ICD-10-PCS; 2019-09-06)
PROC: 0B110F4 Bypass Trachea to Cutaneous with Tracheostomy Device, Open Approach (ICD-10-PCS; 2019-09-07)
PROC: 0GBJ0ZZ Excision of Thyroid Gland Isthmus, Open Approach (ICD-10-PCS; 2019-09-07)
PROC: 0DH63UZ Insertion of Feeding Device into Stomach, Percutaneous Approach (ICD-10-PCS; 2019-09-29)
DX: A41.89 Other specified sepsis (principal); U07.1 COVID-19; J12.89 Other viral pneumonia; R65.21 Severe sepsis with septic shock; E44.0 Moderate protein-calorie malnutrition; J96.01 Acute respiratory failure with hypoxia; D72.810 Lymphocytopenia; D50.9 Iron deficiency anemia, unspecified; D63.8 Anemia in other chronic diseases classified elsewhere; E87.2 Acidosis; G93.40 Encephalopathy, unspecified; E87.6 Hypokalemia; I10 Essential (primary) hypertension; I46.9 Cardiac arrest, cause unspecified; J93.0 Spontaneous tension pneumothorax; G56.03 Carpal tunnel syndrome, bilateral upper limbs; K29.60 Other gastritis without bleeding; K44.9 Diaphragmatic hernia without obstruction or gangrene; T79.7XXA Traumatic subcutaneous emphysema, initial encounter; X58.XXXA Exposure to other specified factors, initial encounter; R74.0 Nonspecific elevation of levels of transaminase and lactic acid dehydrogenase [LDH]; Z82.41 Family history of sudden cardiac death; Z82.49 Family history of ischemic heart disease and other diseases of the circulatory system; Z87.01 Personal history of pneumonia (recurrent); Z93.1 Gastrostomy status; Z99.11 Dependence on respirator [ventilator] status; Y93.89 Activity, other specified; Y92.89 Other specified places as the place of occurrence of the external cause; Y99.8 Other external cause status; Z68.23 Body mass index [BMI] 23.0-23.9, adult; N17.9 Acute kidney failure, unspecified
CPT/HCPCS: 31500; 36415; 36600; 71045; 71250; 73030; 73560; 74018; 76937; 80048; 80053; 81003; 82040; 82375; 82533; 82550; 82553; 82728; 82805; 82962; 83605; 83615; 83735; 83880; 84100; 84145; 84439; 84443; 84478; 84481; 84484; 85014; 85018; 85025; 85027; 85049; 85379; 85384; 86140; 86705; 86709; 86803; 86850; 86900; 86920; 87070; 87077; 87186; 87340; 87389; 87635; 87804; 92523; 92610; 93005; 93970; 94002; 94003; 94640; 97014; 97110; 97112; 97116; 97162; 97167; 97530; 97535; 99291; C1725; C1893; C9113; J0692; J0696; J0878; J1630; J1650; J1885; J1940; J2020; J2060; J2248; J2250; J2270; J2370; J2405; J2543; J2704; J2920; J2997; J3010; J3370; J3411; J3480; J3490; J7050; J7060; J7608; P9016; P9041; U0003-CS